=== PATIENT | female | born 1990 | race Caucasian/White ===

== ENCOUNTER 2019-08-25 17:22 | Emergency (ER) | payer BC, SELFPAY ==
[2019-08-25 17:32] VITALS: BP 112/76; PULSE 98; RESP 16; TEMP 37; O2SAT 98
--- NOTE | 2019-08-25 17:35 | W.ED.GENAD ---
Discharge Plan Disposition Patient Disposition: HOME Condition: Good Discharge Details Chief Complaint: Orthopedic Clinical Impression: Contusion of left wrist Primary Care Provider: Nii Dill ED Provider: Yanna Sheth Home Meds and New Rx's Prescriptions: No Action drospirenone-ethinyl estradiol [NILDA (28)] 3-0.02 mg Tablet 1 tab PO DAILY RF: 0 valacyclovir [Valtrex] 1 gram Tablet 1,000 mg PO DAILY RF: 0 spironolactone 100 mg Tablet 150 mg PO DAILY RF: 0 alprazolam [Xanax] 0.5 mg Tablet 1 mg PO QHS PRNRF: 0 Discharge Instructions Instructions: Contusion in Adults (ED) Additional Instructions: Rest. Activities as tolerated. Splint for comfort for one week Elevate injury to prevent swelling. Ice to the area of discomfort for 15 min. 3-5 times daily. Motrin every 8 hours with food or Tylenol every 6 hours for soreness if needed over the counter for comfort. Followup with orthopedic doctor as discussed if not improving in one week. Return for any worsening or concerns sooner if needed. Referrals: Reyes Tamayo MD [ [facility] STAFF PHYSICIAN] - Medical Decision Making 29-year-old patient presents after crushing her hand under a washer. Patient presents with swelling at the left wrist area and complaining of mild dorsal hand pain. X-rays ultimately unremarkable for any identifiable fracture. [place]hams wrist splint ordered. Rice encouraged. Nothing to indicate distal neurovascular injury. Patient maintains full range of motion. Referral for orthopedic follow-up provided if not improving in 1 week. Reasonable expectations discussed. The patient was stable and requested discharge. Prior to discharge, my usual and customary return precautions were reviewed with the patient - this included follow-up instructions and reasons to return to the Emergency Department if conditions worsens, does not improve as expected, or other new concerns arise. HPI General Date/Time Provider Initiated Documentation: 08/25/19 17:27. HPI Narrative: 29-year-old patient presents for complaints of right wrist pain. Patient was leveling her washing machine and her washing machine landed on her left wrist. Patient reports left wrist pain and swelling since injury prior to arrival. Patient denies any other sites of pain or concerns. Denies numbness, tingling or weakness. Patient does have maintained range of motion. Pain is worse with range of motion. No open wounds. Bruising present. Related Data Home Medications Medication Instructions Recorded Confirmed alprazolam [Xanax] 1 mg PO QHS PRN 08/25/19 08/25/19 drospirenone-ethinyl estradiol 1 tab PO DAILY 08/25/19 08/25/19 [NILDA (28)] spironolactone 150 mg PO DAILY 08/25/19 08/25/19 valacyclovir [Valtrex] 1,000 mg PO DAILY 08/25/19 08/25/19 Allergies Allergy/AdvReac Type Severity Reaction Status Date / Time nickel Allergy Skin Rash Unverified 08/25/19 17:27 General Stated Complaint: Orthopedic ROXANN: 4 Review of Systems Review of Systems ROS Unobtainable: All systems reviewed & are unremarkable except as noted in HPI and below Musculoskeletal Musculoskeletal: Denies deformity, Reports joint swelling, Denies numbness and Denies tingling Integumentary/Breasts Skin/Breast: Denies wounds Neurologic Neurologic: Denies numbness and Denies tingling [facility] Social History Smoking/Tobacco Use Status: Current every day Alcohol Intake: current Alcohol Intake frequency: a few times a week Substance use type: does not use Do you feel safe at home: Yes Do you feel safe in your relationship?: Yes Exam Narrative Exam Narrative: CONST: Healthy appearing patient, in no acute distress. Well hydrated. Alert and alert. MUSCULOSKELETAL: Patient with left wrist ecchymosis and swelling present. No pain with palpation of shoulder, humerus or elbow. No proximal forearm tenderness. Mild distal forearm tenderness both radial and ulnar. Pulses are intact. Ecchymosis and swelling present without open wounds. Mild dorsal hand pain with palpation. Flexion extension intact of all digits. Sensation intact distally. SKIN: Ecchymosis and swelling present in the left wrist. Dry. No rashes. NEURO: Alert and awake. Speech clear. Course Vital Signs Vital signs: Vital Signs Temperature 37 C 08/25/19 17:32 Pulse 98 H 08/25/19 17:32 Respiratory Rate 16 08/25/19 17:32 Blood Pressure 112/76 08/25/19 17:32 Pulse Oximetry 98 08/25/19 17:32 Temperature 37 C 08/25/19 17:32 Temperature Source Temporal Artery Scan 08/25/19 17:32 Pulse 98 H 08/25/19 17:32 Respiratory Rate 16 08/25/19 17:32 Blood Pressure 112/76 08/25/19 17:32 Blood Pressure Position Sitting 08/25/19 17:32 Pulse Oximetry 98 08/25/19 17:32 Oxygen Delivery Method Room Air 08/25/19 17:32 Oxygen Flow Rate 0 08/25/19 17:32 Pain Level 9 08/25/19 17:32
--- NOTE | 2019-08-25 18:34 | DI.RAD_ITS ---
EXAM: XR HAND LT COMPLETE INDICATION: pain, injury. COMPARISON: No exams were available for comparison TECHNIQUE: 2D digital imaging was performed. FINDINGS: There is no evidence of a fracture or dislocation.
--- NOTE | 2019-08-25 18:35 | DI.RAD_ITS ---
EXAM: XR WRIST LT COMP NAVICULAR INDICATION: injury. COMPARISON: No exams were available for comparison TECHNIQUE: 2D digital imaging was performed. FINDINGS: There is no evidence of a fracture or dislocation.
[2019-08-25] MEDS: Acetaminophen 500 MG TAB 1000 MG PO (18:40)
--- NOTE | 2019-08-25 18:52 | DI.VRAD_ITS ---
PROCEDURE INFORMATION: Exam: XR Left Wrist Exam date and time: 08/25/2019 6:16 PM Clinical history: 29 years old, female; Other: Injury TECHNIQUE: Imaging protocol: XR Left wrist. Views: 3 or more views. COMPARISON: No relevant prior studies available. FINDINGS: Bones/joints: There is no evidence of acute fracture.There is no evidence of malalignment or dislocation. Soft tissues: Normal. IMPRESSION: There is no evidence of acute fracture.There is no evidence of malalignment or dislocation. Dictated and Authenticated by: Bharati Mancia MD. Ordering:ENRIQUE Raines MD
--- NOTE | 2019-08-25 18:53 | DI.VRAD_ITS ---
PROCEDURE INFORMATION: Exam: XR Left Hand Exam date and time: 08/25/2019 6:16 PM Clinical history: 29 years old, female; Other: Pain, injury TECHNIQUE: Imaging protocol: XR Left hand. Views: 3 or more views. COMPARISON: No relevant prior studies available. FINDINGS: Bones/joints: There is no evidence of acute fracture.There is no evidence of malalignment or dislocation. Soft tissues: Normal. IMPRESSION: There is no evidence of acute fracture.There is no evidence of malalignment or dislocation. Dictated and Authenticated by: Bharati Mancia MD. Ordering:ENRIQUE Raines MD
[2019-08-25 19:30] VITALS: BP 112/76; PULSE 98; RESP 16; TEMP 37; O2SAT 98
== END 2019-08-25 19:30 | disposition home or self-care (01) ==
PROVIDERS: Emergency Provider Physician Assistant; PCP Internal Medicine
DX: S60.212A Contusion of left wrist, initial encounter (principal); W23.1XXA Caught, crushed, jammed, or pinched between stationary objects, initial encounter
CPT/HCPCS: 29125; 81025; 99283; 73110; 73130

== ENCOUNTER 2019-09-09 08:43 | Emergency (ER) | payer BC, SELFPAY ==
[2019-09-09 08:45] VITALS: BP 126/86; PULSE 104; TEMP 36.2; O2SAT 98
--- NOTE | 2019-09-09 08:55 | ED.GENADUL_ITS ---
Discharge Plan Disposition Patient Disposition: HOME Condition: Stable Discharge Details Chief Complaint: Nausea/Vomit/Diar Clinical Impression: Vomiting Primary Care Provider: Nii Dill ED Provider: Jennifer Henderson Home Meds and New Rx's Prescriptions: New ondansetron 4 mg tablet,disintegrating 4 mg PO BID-TID PRN (Reason: nausea and vomiting) Qty: 8 RF: 0 famotidine [Pepcid] 20 mg tablet 20 mg PO DAILY Qty: 30 RF: 0 Continued drospirenone-ethinyl estradiol [NILDA (28)] 3-0.02 mg Tablet 1 tab PO DAILY RF: 0 valacyclovir [Valtrex] 1 gram Tablet 1,000 mg PO DAILY RF: 0 spironolactone 100 mg Tablet 150 mg PO DAILY RF: 0 zolpidem [Ambien] 10 mg Tablet 10 mg PO HS RF: 0 bupropion HCl [Wellbutrin XL] 300 mg Tablet Extended Release 24 Hr 300 mg PO DAILY RF: 0 doxycycline hyclate 100 mg Capsule 100 mg PO BID RF: 0 cetirizine 10 mg Tablet 10 mg PO DAILY RF: 0 Discharge Instructions Instructions: Famotidine (By mouth), Ondansetron (By mouth), Gastritis (ED), Gastroenteritis (ED), Acute Nausea and Vomiting (ED) Additional Instructions: Please return to the emergency department if you develop any new or worsening symptoms or if you become otherwise concerned. It is extremely important that you call as soon as possible to make an appointment to be seen in follow-up for this visit by your primary care doctor. Referrals: Nii Dill [Primary Care Provider] - Discharge Data Discharge Date/Time-TO BE ENTERED AT DEPARTURE: 09/09/19 13:55 Medical Decision Making Leia Carroll is a 29-year-old woman with a history of anxiety and depre ssion who presented to the emergency department with 3 days of vomiting, accompanied by diarrhea and upper abdominal pain worse with vomiting. On exam patient is well and nontoxic appearing. Her mucous memories are somewhat dry. She has mild tenderness across the upper abdomen without peritoneal signs, negative Escobar sign. Concern for gastroenteritis versus pancreatitis versus other, possible metabolic/lyte derangement in setting of dehydration. Doubt biliary disease. Exam/history is not consistent with acute coronary syndrome, pulmonary embolism, acute aortic pathology, mesenteric ischemia, sepsis. Plan for IV fluid hydration, IV Zofran, screening labs, UA. Will monitor and reassess, possible CT abdomen/pelvis. Patient reports continued abdominal pain on reassessment. She continues to be very well-appearing. No vomiting in the emergency department. Plan for CT. Labs reviewed, nondiagnostic. CT abdomen pelvis negative for acute pathology. Patient has received 2 L of IV fluid, appears hydrated. Taking p.o. in the emergency department without issue. Patient requesting discharged home, stating that she feels much better. Patient again states that she feels safe at home. No further intervention indicated at this time. Plan for Rx ondansetron, famotidine. I had a lengthy discussion with the patient in the presence of her grandmother regarding return to emergency department precautions, importance of outpatient follow-up with her PCP and mental health counselor, and home care. Patient verbalized understanding of the plan was amenable. All questions were answered. Patient was discharged home with clear plan for outpatient follow-up. Medical Records Medical records reviewed: Yes I reviewed the patient's medical records. Imaging Data Radiologic Study: Attestation: I personally reviewed and interpreted this imaging study as follows: Radiologist's impression: Exam(s) a CT:CT abdomen & pelvis w EXAM: CT ABDOMEN PELVIS W CLINICAL HISTORY: upper abd pain and tenderness, vomiting TECHNIQUE: 100 mL Omnipaque 350 IV. No oral contrast. COMPARISON: No exams were available for comparison FINDINGS: The heart size is normal. The lung bases are clear. The liver, gallbladder, spleen, pancreas, kidneys and urinary bladder are unremarkable. The uterus is retroverted. The ovaries appear normal. There is no free air or free fluid. S urgical clips are seen near the base of the cecum, pretty presumably related to prior appendectomy. No bowel dilatation or inflammatory changes are seen. There is a normal quantity of stool. No adenopathy is seen. No bony abnormalities are seen. IMPRESSION: Negative CT of the abdomen and pelvis. Lab Data Lab results reviewed: Yes I reviewed the patient's lab results. Labs: Laboratory Tests Range/Units 09/09/19 09/09/19 09/09/19 09:25 09:25 11:58 WBC (4.4-10.8) k/cumm 7.60 RBC (4.00-5.20) m/cumm 4.51 Hgb (12.0-15.5) g/dL 13.8 Hct (36.0-46.0) % 40.5 MCV (80-95) fL 89.8 MCH (27.0-33.0) pg 30.6 MCHC (32.0-36.0) g/dL 34.1 RDW (11.7-14.6) % 12.9 Plt Count (130-400) x1000/uL 280 MPV (8.0-11.0) fL 9.6 Immature Gran % 0.3 Neutrophils % 69.1 Lymphocytes % 21.1 Monocytes % 8.2 Eosinophils % 0.9 Basophils % 0.4 Absolute Neutrophils (1.2-6.7) k/cumm 5.26 Absolute Lymphocytes (1.2-3.4) k/cumm 1.60 Absolute Monocytes (0.11-0.7) k/cumm 0.62 Absolute Eosinophils (0.0-0.7) k/cumm 0.07 Absolute Basophils (0.0-0.2) k/cumm 0.03 Sodium (136-145) mmol/L 137 Potassium (3.5-5.1) mmol/L 4.1 Chloride (98-107) mmol/L 100 Carbon Dioxide (21.0-32.0) mmol/L 23.0 Anion Gap (3-11) mmol/L 14.0 H BUN (7-18) mg/dL 10 Creatinine (0.55-1.02) mg/dL 0.92 Estimated GFR/1.73 m2 (mL/min/1.73m2) >= 60.00 Glucose (70-100) mg/dL 88 Calcium (8.5-10.1) mg/dL 9.4 Total Bilirubin (0.2-1.0) mg/dL 0.7 AST (15-37) U/L 16 ALT (14-59) U/L 36 Alkaline Phosphatase (46-116) U/L 48 Total Protein (6.4-8.2) g/dL 7.7 Albumin (3.4-5.0) g/dL 3.9 Lipase (73-393) U/L 118 Beta HCG, Quant (1-3) mIU/mL 1 Urine Color (Yellow) Yellow Urine Clarity (Clear) Sl cloudy Urine pH (5-8) 6.0 Ur Specific Sup[place] (1.005-1.025) 1.010 Urine Protein (Negative) mg/dL Negative Urine Ketones (Negative) mg/dL 40 H Urine Blood (Negative) Moderate H Urine Nitrite (Negative) Negative Urine Bilirubin (Negative) Negative Urine Urobilinogen (Up TO 0.2) EU/dL 0.2 Ur Leukocyte Esterase (Negative) Negative Urine RBC (0-2) 10-20 H Urine WBC (0-5) HPF 0-2 Ur Epithelial Cells (Negative) HPF Moderate Urine Crystals (Negative) HPF Negative Urine Bacteria (Negative) HPF Few Urine Casts (Negative) LPF 3-5 coarse granular Urine Mucus (Negative) Trace Urine Other (Negative) Negative Ur Culture Indicated? No/sq. contamination Urine Glucose (Negative) mg/dL Negative HPI General Mode of arrival: ambulatory . Date/Time Provider Initiated Documentation: 09/09/19 08:54 . Limitations to Documentation: no limitations . Information obtained by: patient, family, RN notes reviewed and old records reviewed . HPI Narrative: Leia Carroll is a 29-year-old woman here with a history of anxiety and depression (recently diagnosed) presenting to the emergency department with vomiting for the past 3 days. Patient reports that beginning 3 days ago, every time she eats, she vomits immediately. She has also had mild diarrhea since onset of vomiting, last bowel movement was last night and was loose. She denies any constipation. Patient reports that she has abdominal pain with dry heaving, but otherwise her stomach is not painful. She denies any other pain, fevers, shortness of breath, rash, numbness, weakness. She reports that she has had a mild cough. Patient reports that she is concerned that her vomiting may be related to stress and anxiety, as she went through a recent break-up and has been having a difficult time emotionally due to that. She denies suicidality, homicidality, states that she feels safe at home. Never had similar symptoms in the past. Was previously well in her usual state of health. No recent travel. Related Data Home Medications Medication Instructions Recorded Confirmed drospirenone-ethinyl estradiol 1 tab PO DAILY 08/25/19 09/09/19 [NILDA (28)] spironolactone 150 mg PO DAILY 08/25/19 09/09/19 valacyclovir [Valtrex] 1,000 mg PO DAILY 08/25/19 09/09/19 bupropion HCl [Wellbutrin XL] 300 mg PO DAILY 09/09/19 09/09/19 cetirizine 10 mg PO DAILY 09/09/19 09/09/19 doxycycline hyclate 100 mg PO BID 09/09/19 09/09/19 famotidine [Pepcid] 20 mg PO DAILY #30 tab 09/09/19 ondansetron 4 mg PO BID-TID PRN #8 tab 09/09/19 zolpidem [Ambien] 10 mg PO HS 09/09/19 09/09/19 Previous Rx's Medication Instructions Recorded famotidine [Pepcid] 20 mg PO DAILY #30 tab 09/09/19 ondansetron 4 mg PO BID-TID PRN #8 tab 09/09/19 Allergies Allergy/AdvReac Type Severity Reaction Status Date / Time nickel Allergy Skin Rash Unverified 09/09/19 09:08 General Stated Complaint: Nausea/Vomit/Diar ROXANN: 3 Review of Systems Narrative: Constitutional: denies fevers Eyes: denies eye pain ENT: denies facial pain, dental pain, sore throat Cardiovascular: denies chest pain Respiratory: denies SOB, cough GI: Reports mild abdominal pain, vomiting, diarrhea : denies flank pain MSK: denies back pain, neck pain, arthralgias, myalgias Skin: denies rash Neuro: denies headaches, numbness, weakness PFSH Social History Smoking/Tobacco Use Status: Current every day Alcohol Intake: never Substance use type: does not use Do you feel safe at home: Yes Do you feel safe in your relationship?: Yes Exam Narrative Exam Narrative: Constitutional: well and [id number], pleasant, conversing normally HENT: head atraumatic/normocephalic/normal inspection, mucous membranes somewhat dry Eyes: conjunctiva normal, sclera normal, pupils 3mm b/l Neck: no stridor, normal ROM, trachea midline Chest: normal inspection Resp: normal work of breathing, LCTAB Cardio: normal rate, normal rhythm, no murmur appreciated GI: abdomen soft, mild tenderness to palpation across the upper abdomen without rebound or guarding, no mass, non-distended Skin: warm, dry, normal color, no rash Neuro: alert, not altered, grossly non-focal, normal tone Ext: no edema, no posterior calf tenderness to palpation Psych: normal mood, normal affect, normal behavior, no suicidality, no homicidality, no hallucinations Course Vital Signs Vital signs: Vital Signs Temperature 36.2 C L 09/09/19 08:45 Pulse 104 H 09/09/19 08:45 Blood Pressure 126/86 09/09/19 08:45 Pulse Oximetry 98 09/09/19 08:45 Temperature 36.2 C L 09/09/19 08:45 Temperature Source Skin 09/09/19 08:45 Pulse 104 H 09/09/19 08:45 Blood Pressure 126/86 09/09/19 08:45 Blood Pressure Position Sitting 09/09/19 08:45 Pulse Oximetry 98 09/09/19 08:45 Oxygen Delivery Method Room Air 09/09/19 08:45 Oxygen Flow Rate 0 09/09/19 08:45 Pain Level 2 09/09/19 08:45
[2019-09-09] MEDS: Normal Saline 1,000 ML 1000 ML IV ×2 (09:29→12:05)
[2019-09-09 09:35] LABS: Abs Immature Grans 0.02 k/cumm (0.0-0.09); Absolute Basophil Count 0.03 k/cumm (0.0-0.2); Absolute Eosinophil Count 0.07 k/cumm (0.0-0.7); Absolute Monocyte Count 0.62 k/cumm (0.11-0.7); Absolute Neutrophil Count 5.26 k/cumm (1.2-6.7); Basophils % 0.4; Eosinophils % 0.9; HCT 40.5 % (36.0-46.0); HGB 13.8 g/dL (12.0-15.5); Immature Grans % 0.3; Lymphocytes % 21.1; Mean Corp. HGB Concentration 34.1 g/dL (32.0-36.0); Mean Corpuscular Hemoglobin 30.6 pg (27.0-33.0); Mean Corpuscular Volume 89.8 fL (80-95); Mean Platelet Volume 9.6 fL (8.0-11.0); Monocytes % 8.2; Neutrophils % 69.1; Platelet Count 280 x1000/uL (130-400); RBC 4.51 m/cumm (4.00-5.20); RBC Distribution Width 12.9 % (11.7-14.6)
[2019-09-09 09:52] LABS: HCG Quant, Pregnancy 1 mIU/mL (1-3)
[2019-09-09 09:57] LABS: ALT 36 U/L (14-59); AST 16 U/L (15-37); Albumin 3.9 g/dL (3.4-5.0); Alkaline Phosphatase 48 U/L (46-116); BUN 10 mg/dL (7-18); Bilirubin, Total 0.7 mg/dL (0.2-1.0); CREATININE 0.92 mg/dL (0.55-1.02); Calcium 9.4 mg/dL (8.5-10.1); Glucose 88 mg/dL (70-100); Lipase 118 U/L (73-393); Total Protein 7.7 g/dL (6.4-8.2)
[2019-09-09 10:24] LABS: Chloride 100 mmol/L (98-107); Potassium 4.1 mmol/L (3.5-5.1); Sodium 137 mmol/L (136-145)
[2019-09-09] MEDS: Ondansetron 4 MG/2 ML VIAL IM (10:55)
--- NOTE | 2019-09-09 10:55 | DI.CT_ITS ---
EXAM: CT ABDOMEN PELVIS W CLINICAL HISTORY: upper abd pain and tenderness, vomiting TECHNIQUE: 100 mL Omnipaque 350 IV. No oral contrast. COMPARISON: No exams were available for comparison FINDINGS: The heart size is normal. The lung bases are clear. The liver, gallbladder, spleen, pancreas, kidn eys and urinary bladder are unremarkable. The uterus is retroverted. The ovaries appear normal. Th ere is no free air or free fluid. Surgical clips are seen near the base of the cecum, pretty presuma [place] related to prior appendectomy. No bowel dilatation or inflammatory changes are seen. There is a normal quantity of stool. No adenopathy is seen. No bony abnormalities are seen. IMPRESSION: Negative CT of the abdomen and pelvis.
[2019-09-09] MEDS: Omnipaque 350 MG/ML 100 ML BTL IJ (11:51)
[2019-09-09 12:08] LABS: Bilirubin Negative (Negative); Blood Moderate (Negative); Clarity Sl Cloudy (Clear); Glucose Negative (Negative); Ketones 40 mg/dL (Negative); Leukocyte Esterase Negative (Negative); Nitrite Negative (Negative); Urobilinogen 0.2 EU/dL (Up TO 0.2)
[2019-09-09 12:18] LABS: WBC 0-2 HPF (0-5)
[2019-09-09 12:19] LABS: Bacteria Few HPF (Negative); C & S Indicated? No/Sq. Contamination; Casts 3-5 Coarse Granular LPF (Negative); Crystals Negative HPF (Negative); Epithelial Cells Moderate HPF (Negative); Mucus Trace (Negative); Other Cells Negative (Negative)
[2019-09-09 12:27] VITALS: BP 107/70; PULSE 79; RESP 16; TEMP 36.5; O2SAT 100
[2019-09-09 13:52] VITALS: BP 99/59; PULSE 75; RESP 14; O2SAT 97
== END 2019-09-09 13:55 | disposition home or self-care (01) ==
PROVIDERS: Emergency Provider Student in an Organized Health Care Education/Training Program; PCP Internal Medicine
DX: R11.2 Nausea with vomiting, unspecified (principal); F41.8 Other specified anxiety disorders
CPT/HCPCS: 36415; 80053; 83690; 96360; 96361; 96372; 99285; 74177; 81003; 81015; 84702; 85025; 99284; J2405; J3490

== ENCOUNTER 2024-09-17 01:46 | Emergency (ER) | payer SELFPAY ==
[2024-09-17 01:49] VITALS: BP 150/101; PULSE 72; RESP 16; TEMP 36.7; O2SAT 99
--- NOTE | 2024-09-17 01:54 | W.ED.GENAD ---
Discharge Plan Disposition Patient Disposition: Home Condition: Good Discharge Details Clinical Impression: Dental infection Primary Care Provider: Nii Dill ED Provider: Travis Acuna [place] Meds and New Rx's Prescriptions: New amoxicillin 500 mg tablet 500 mg PO TID Qty: 20 0RF Continued valacyclovir [Valtrex] 1 gram Tablet 1,000 mg PO DAILY cetirizine 10 mg Tablet 10 mg PO DAILY Discharge Instructions Instructions: Dental Pain ED Additional Instructions: You were seen in the ED for dental pain which given the swelling, lymph node and worsening pain would suggest probable infection. We have started you on an antibiotic. You should continue alternating acetaminophen 1000mg with ibuprofen 600mg every 4 hours. You will need to see a dentist in the next couple of days, refer to the list you have been provided. There is also an [facility] in [place]. Return to ED for any difficulty breathing, inability to swallow, facial redness or swelling, fever, other concerns. Discharge Data Discharge Date/Time-TO BE ENTERED AT DEPARTURE: 09/17/24 02:15 HPI General Mode of arrival: ambulatory. Date/Time Provider Initiated Documentation: 09/17/24 01:54. Limitations to Documentation: no limitations. Information obtained by: patient and RN notes reviewed. HPI Narrative: Patient presents to ED with right sided dental and facial pain. Patient reports that over the last 3 days she has had increasing pain to the right lower jaw. She does have all of her wisdom teeth. She has never had issues with them previously despite them never coming in. Is now having significant pain that radiates to her right ear, pain when swallowing on the right side, some apparent swelling in her neck. She denies any fever. She denies any URI type symptoms. She denies any difficulty breathing. She has been taking acetaminophen and ibuprofen for pain. Related Data Home Medications ?Medication ?Instructions ?Recorded ?Confirmed valacyclovir 1 gram tablet 1,000 mg PO DAILY 08/25/19 09/17/24 (Valtrex) cetirizine 10 mg tablet 10 mg PO DAILY 09/09/19 09/17/24 amoxicillin 500 mg tablet 500 mg PO TID #20 tabs 09/17/24 Previous Rx's ?Medication ?Instructions ?Recorded amoxicillin 500 mg tablet 500 mg PO TID #20 tabs 09/17/24 Allergies Allergy/AdvReac Type Severity Reaction Status Date / Time nickel Allergy Skin Rash Verified 09/17/24 01:53 General Stated Complaint: DentalOral ROXANN: 5 Review of Systems Narrative: Per HPI Exam Narrative Exam Narrative: Const: WDWN female in NAD. VS per triage. HEENT: NC/AT. Normal facial exam. Dentition is in good condition. Significant erythema and swelling as well as tenderness over the site of the right lower wisdom tooth. No obvious abscess. Right TM is clear. Neck: Supple. Trachea midline. A couple of small tender right sided lymph nodes. Lungs: Normal respiratory effort. Neuro: A+O x 3. Normal speech, mentation, gait. Cranial nerves II - XII grossly intact. No gross motor or sensory deficit. Course Vital Signs Vital signs: Vital Signs Temperature 98.1 F 09/17/24 01:49 Pulse 72 09/17/24 01:49 Respiratory Rate 16 09/17/24 01:49 Blood Pressure 150/101 H 09/17/24 01:49 Pulse Oximetry 99 09/17/24 01:49 Temperature 98.1 F 09/17/24 01:49 Temperature Source Temporal Artery Scan 09/17/24 01:49 Pulse 72 09/17/24 01:49 Respiratory Rate 16 09/17/24 01:49 Blood Pressure 150/101 H 09/17/24 01:49 Blood Pressure Position Sitting 09/17/24 01:49 Pulse Oximetry 99 09/17/24 01:49 Oxygen Delivery Method Room Air 09/17/24 01:49 Oxygen Flow Rate 0 09/17/24 01:49 Pain Level 8 09/17/24 01:49 Medical Decision Making Patient presenting to ED with right lower jaw pain radiating to her ear. She has pain with swallowing on the right side as well as some lymph nodes. Pain has been worsening despite alternating acetaminophen with ibuprofen. Her dentition actually looks very good. She does not have percussion tenderness over erupted teeth. [place] teeth have not come in and are likely impacted. However, given the worsening pain, lymph nodes, swelling and erythema potentially has developed an infection. Will start her on amoxicillin. Have given her a list of dentists in the area that can see her in follow-up. Recommend warm salt water rinse and spit. Continue alternating acetaminophen with ibuprofen. Return precautions provided. PFSH All Active Problems Dental infection (Acute) Medical History No significant past medical history Social History Smoking/Tobacco Use Status: Current every day Smoking risk assessment performed?: Yes Alcohol Intake: never Substance use type: does not use Do you feel safe at home: Yes Do you feel safe in your relationship?: Yes
[2024-09-17] MEDS: Amoxicillin 500 MG CAP PO (02:12)
--- NOTE | 2024-09-18 12:32 | NUR.NOTE ---
Nursing Note: Accessed chart yesterday 09/17/24 due to call received from Aria Mendoza regarding prescriptions. Verbal order given to pharmacy for Antibiotics as written by .
== END 2024-09-17 02:15 | disposition home or self-care (01) ==
LOC: ER 02:39
PROVIDERS: Emergency Provider Emergency Medicine; PCP Internal Medicine
DX: R68.84 Jaw pain (principal); K04.7 Periapical abscess without sinus; F17.200 Nicotine dependence, unspecified, uncomplicated
CPT/HCPCS: 99283

== ENCOUNTER 2024-10-13 15:32 | Emergency (ER) | payer SELFPAY ==
[2024-10-13 15:35] VITALS: BP 132/95; PULSE 111; RESP 18; TEMP 36.3; O2SAT 92
--- NOTE | 2024-10-13 15:45 | DI.CT_ITS ---
Exam(s) CT ABDOMEN PELVIS W EXAM: CT ABDOMEN PELVIS W CLINICAL HISTORY: RUQ pain into back. TECHNIQUE: Imaging Protocol: Axial computed tomography images with coronal and sagittal reformatted images were created and reviewed CONTRAST MATERIAL: Intravenous: Omnipaque-350 100cc Oral: None COMPARISON: CT CT ABDOMEN PELVIS W from 09/09/2019 FINDINGS: VISUALIZED LUNG BASES: No nodules nor pleural effusions evident. ABDOMEN: There is no ascites. LIVER: There are no focal hepatic lesions evident. No dilated intrahepatic ducts. GALLBLADDER/BILIARY: No obvious gallbladder pathology. CBD is not dilated. PANCREAS: No evidence of pancreatic mass nor dilatation of the pancreatic duct. SPLEEN: Spleen is not enlarged. There is a small cyst in the inferior half of the spleen which measu res 0.8 cm. No other focal splenic findings. The splenic and portal veins are patent. ADRENALS: There are no significant adrenal masses. KIDNEYS:No cysts evident. No solid renal masses. No calculi nor hydronephrosis.. ABDOMINAL AORTA: Abdominal aorta is not enlarged. LYMPH NODES:There is no retroperitoneal nor paraaortic adenopathy. ABDOMINAL WALL: No evidence of significant anterior abdominal wall nor inguinal hernia. GI: There is no evidence of bowel obstruction, free air, nor abscess. PELVIS: GI: The appendix is surgically absent. No abnormal findings in this region. No evidence of bowel ob struction.No evidence of sigmoid diverticulitis. LYMPH NODES: There is no intrapelvic nor inguinal adenopathy. REPRODUCTIVE: Uterus unremarkable. Left adnexa unremarkable. In the right adnexa there is a periphe rally enhancing corpus luteal cyst in the right ovary measuring 1.4 by 1.6 by 1.8 cm. There is small -moderate amount of free fluid in the cul-de-sac. URINARY BLADDER: No calculi nor obvious masses evident OSSEOUS: No fractures and no significant osseous lesions. Sacroiliac joints unremarkable. IMPRESSION: 1. The appendix is surgically absent. No evidence of bowel obstruction, free air, nor abscess. 2. No obvious acute gallbladder pathology on CT scan. If clinically indicated ultrasound of the gall bladder can be performed to determine if there are calculi in the gallbladder which are not visible o n CT scan. 3. There is a peripherally enhancing cyst-probably corpus luteal cyst in the right ovary measuring 14 x 16 x 18 mm. There is small-moderate amount of free fluid in the cul-de-sac. Correlation with pre gnancy test recommended. First read by [facility]. RADIATION DOSE DELIVERED: 285.76mGy.cm Total DLP DATA REPOSITORY: All CT scans at this facility are submitted to the National Radiology Data Registry (NRDR) Dose Index Registry (DIR) with the [employer] (ACR). RADIATION OPTIMIZATION: All CT scans at this facility use at least one of these dose optimization te chniques: automated exposure control; mA and/or kV adjustment per patient size (includes targeted exa ms where dose is matched to clinical indication); or iterative reconstruction.
[2024-10-13 16:00] VITALS: BP 135/94; PULSE 111; RESP 24; TEMP 36.3; O2SAT 100
[2024-10-13] MEDS: MORPHine 4 MG/ML SYR IVP (16:28)
[2024-10-13] MEDS: ACETAMINOPHEN 650 MG/65 ML BAG 260 MG IVPB (16:28)
[2024-10-13 16:42] LABS: ALT 16 U/L (14-59); AST 13 U/L (15-37); Abs Immature Grans 0.05 10^3/uL (0.0-0.06); Absolute Basophil Count 0.07 10^3/uL (0.0-0.2); Absolute Eosinophil Count 0.12 10^3/uL (0.0-0.7); Albumin 3.8 g/dL (3.4-5.0); Alkaline Phosphatase 82 U/L (46-116); Anion Gap 10.7 mmol/L (3-11); BUN 19 mg/dL (7-18); Basophils % 0.6 %; Bilirubin, Total 1.19 mg/dL (0.2-1.0); CO2 26.3 mmol/L (21.0-32.0); CREATININE 1.2 mg/dL (0.55-1.02); Calcium 9.5 mg/dL (8.5-10.1); Chloride 104 mmol/L (98-107); Estimated GFR 60.92 (mL/min/1.73m2); Glucose 98 mg/dL (74-106); HCT 38.8 % (36.0-46.0); HGB 12.4 g/dL (11.2-15.7); Immature Grans % 0.4 %; Lipase 30 U/L (<78); Lymphocytes % 12.9 %; MCH 29.9 pg (27.0-33.0); MCV 94 fL (80-95); MPV 9.4 fL (8.0-11.0); Monocytes % 11.1 %; Platelet Count 271 10^3/uL (130-400); Potassium 3.8 mmol/L (3.5-5.1); RBC 4.15 10^6/uL (3.93-5.22); RDW 12.6 % (11.7-14.6); RDW-SD 43.3 fL; Sodium 141 mmol/L (136-145); WBC 11.74 10^3/uL (4.4-10.8)
[2024-10-13 16:46] LABS: Absolute Lymphocyte Count 1.51 10^3/uL (1.2-3.4); Absolute Neutrophil Count 8.69 10^3/uL (1.2-6.7)
[2024-10-13] MEDS: Normal Saline - Diluent 50 ML VIAL IJ (16:48)
[2024-10-13] MEDS: Omnipaque 350 MG/ML 100 ML BTL IJ (16:48)
--- NOTE | 2024-10-13 17:20 | DI.VRAD_ITS ---
PROCEDURE INFORMATION: Exam: CT Abdomen And Pelvis With Contrast Exam date and time: 10/13/2024 4:43 PM Age: 34 years old Clinical indication: Other: Ruq pain into back TECHNIQUE: Imaging protocol: Computed tomography of the abdomen and pelvis with contrast. Contrast material: 350; Contrast volume: 75 ml; Contrast route: INTRAVENOUS (IV); COMPARISON: CT ABDOMEN PELVIS W 09/09/2019 11:40 AM FINDINGS: Lungs: There is minimal bibasilar atelectasis. The lungs are otherwise normal. Pleural spaces: There is no evidence of pneumothorax. There are no pleural effusions present. Heart: The cardiac structures are normal. Liver: There is a diffuse decrease in hepatic parenchymal density, consistent with mild fatty infiltration. There are no focal liver lesions present. There is no evidence of intrahepatic or extrahepatic biliary ductal dilation. Gallbladder and biliary ducts: The gallbladder is normal. There is no cholelitiasis, wall thickening or pericholecystic fluid to suggest cholecystitis. Pancreas: The pancreas is normal. Spleen: The spleen is normal. Adrenal glands: The adrenal glands are normal without evidence of mass or enlargement. Kidneys and ureters: There is mild bilateral perinephric stranding and fluid. This may represent a mild inflammatory process or old inflammation and scarring. The kidneys are otherwise normal no evidence of nephrolithiasis or hydronephrosis. The ureters are normal caliber and follow a normal caliber and course. Stomach and bowel: No obstruction. No mucosal thickening. Appendix: There has been an appendectomy. No evidence of appendicitis. Intraperitoneal space: There is no free intraperitoneal air. There is no evidence of free intraperitoneal or pelvic fluid. Vasculature: The aorta is unremarkable without evidence of significant atherosclerosis or aneurysmal disease. The peripheral arterial vascular system visualized is unremarkable. The portal venous system visualized is unremarkable. The peripheral venous vascular system visualized is unremarkable. Lymph nodes: There is no evidence of lymphadenopathy. Urinary bladder: The bladder is normal. Reproductive: The uterus is retroflexed. The uterus is otherwise normal. There is a collapsing cyst is present within the right adnexa measuring 18.5 mm with an enhancing wall. There is free fluid present within the pelvis. Consider ruptured ovarian cyst. Bones/joints: The skeletal structures and soft tissues show no evidence of fracture or other acute processes. Soft tissues: The extra-abdominal soft tissues are normal. IMPRESSION: There is a collapsing cyst is present within the right adnexa measuring 18.5 mm with an enhancing wall. There is free fluid present within the pelvis. Consider ruptured ovarian cyst. Dictated and Authenticated by: Kip Marquez MD. Ordering:SCOTT Ashton MD
--- NOTE | 2024-10-13 17:40 | W.ED.GENAD ---
Discharge Plan Disposition Patient Disposition: Home Condition: Stable Discharge Details Clinical Impression: Cystitis, Ovarian cyst rupture Primary Care Provider: Nii Dill ED Provider: Daisha Williamson Home Meds and New Rx's Prescriptions: New cefpodoxime 200 mg tablet 200 mg PO BID Qty: 19 0RF Rx Instructions: must administer with a meal/food Continued valacyclovir [Valtrex] 1 gram Tablet 1,000 mg PO DAILY cetirizine 10 mg Tablet 10 mg PO DAILY amoxicillin 500 mg tablet 500 mg PO TID Qty: 20 0RF Discharge Instructions Instructions: Ovarian Cyst ED Additional Instructions: Ibuprofen 600 mg every 8 hours with food as needed for pain You may take Tylenol 650 every 6 hours for breakthrough pain You may take morphine for pain uncontrolled with the medications listed above Take the antibiotic as prescribed, yogurt daily while on the antibiotic Recommendation follow-up with your primary care physician you will likely need a repeat pelvic ultrasound in the next cycle or 2, I have given you an ultrasound order sheet Should you have fever, chills, or any new or worsening complaints please return immediately for reassessment Your creatinine level is slightly elevated, please have this rechecked by your doctor is likely secondary to dehydration We will notify you in 3 to 4 days if your STD panel is positive, if you do not receive a call that means the results are negative but feel free to call regardless to confirm Discharge Data Discharge Date/Time-TO BE ENTERED AT DEPARTURE: 10/13/24 18:41 HPI General Date/Time Provider Initiated Documentation: 10/13/24 15:40. HPI Narrative: This 34-year-old female presents with report of right upper quadrant pain with radiation into flank. States pain woke her from sleep this morning. Denies history of similar symptoms in the past. Denies chance of or fever or chills. States she was treated for a UTI approximately a month ago with an antibiotic and her symptoms resolved. Related Data Home Medications ?Medication ?Instructions ?Recorded ?Confirmed valacyclovir 1 gram tablet 1,000 mg PO DAILY 08/25/19 09/17/24 (Valtrex) cetirizine 10 mg tablet 10 mg PO DAILY 09/09/19 09/17/24 amoxicillin 500 mg tablet 500 mg PO TID #20 tabs 09/17/24 cefpodoxime 200 mg tablet 200 mg PO BID #19 tabs 10/13/24 Previous Rx's ?Medication ?Instructions ?Recorded amoxicillin 500 mg tablet 500 mg PO TID #20 tabs 09/17/24 cefpodoxime 200 mg tablet 200 mg PO BID #19 tabs 10/13/24 Allergies Allergy/AdvReac Type Severity Reaction Status Date / Time nickel Allergy Skin Rash Verified 09/17/24 01:53 General Stated Complaint: Abd Prob ROXANN: 3 Exam Narrative Exam Narrative: Alert and oriented 34-year-old female initially presenting in acute distress, right flank and right upper quadrant pain, lungs clear to auscultation, cardiac rate rhythm regular Course Vital Signs Vital signs: Vital Signs Temperature 36.3 C L 10/13/24 15:35 Pulse 111 H 10/13/24 15:35 Respiratory Rate 18 10/13/24 15:35 Blood Pressure 132/95 H 10/13/24 15:35 Pulse Oximetry 92 10/13/24 15:35 Temperature 36.3 C L 10/13/24 16:00 Temperature Source Oral 10/13/24 16:00 Pulse 111 H 10/13/24 16:00 Respiratory Rate 24 10/13/24 16:00 Respiratory Effort Normal 10/13/24 15:40 Blood Pressure 135/94 H 10/13/24 16:00 Blood Pressure Position Sitting 10/13/24 16:00 Pulse Oximetry 100 10/13/24 16:00 Oxygen Delivery Method Room Air 10/13/24 16:00 Oxygen Flow Rate 0 10/13/24 15:35 Pain Level 9 10/13/24 16:28 Comment fingernail pashto on 10/13/24 15:35 Lab/Test Results Lab/Test Results: Laboratory Tests Range/Units 10/13/24 16:22 WBC (4.4-10.8) 10^3/uL 11.74 H RBC (3.93-5.22) 10^6/uL 4.15 Hgb (11.2-15.7) g/dL 12.4 Hct (36.0-46.0) % 38.8 MCV (80-95) fL 94 MCH (27.0-33.0) pg 29.9 MCHC (32.0-36.0) % 32.0 RDW (11.7-14.6) % 12.6 Plt Count (130-400) 10^3/uL 271 MPV (8.0-11.0) fL 9.4 Immature Gran % % 0.4 Neutrophils % % 74.0 Lymphocytes % % 12.9 Monocytes % % 11.1 Eosinophils % % 1.0 Basophils % % 0.6 Nucleated RBC % (0.0-0.3) % 0.0 Absolute Neutrophils (1.2-6.7) 10^3/uL 8.69 H Absolute Lymphocytes (1.2-3.4) 10^3/uL 1.51 Absolute Monocytes (0.1-0.8) 10^3/uL 1.30 H Absolute Eosinophils (0.0-0.7) 10^3/uL 0.12 Absolute Basophils (0.0-0.2) 10^3/uL 0.07 Sodium (136-145) mmol/L 141 Potassium (3.5-5.1) mmol/L 3.8 Chloride (98-107) mmol/L 104 Carbon Dioxide (21.0-32.0) mmol/L 26.3 Anion Gap (3-11) mmol/L 10.7 BUN (7-18) mg/dL 19 H Creatinine (0.55-1.02) mg/dL 1.2 H Est GFR (CKD-EPI 2020) (mL/min/1.73m2) 60.92 Glucose (74-106) mg/dL 98 Calcium (8.5-10.1) mg/dL 9.5 Total Bilirubin (0.2-1.0) mg/dL 1.19 H AST (15-37) U/L 13 L ALT (14-59) U/L 16 Alkaline Phosphatase (46-116) U/L 82 Total Protein (6.4-8.2) g/dL 7.0 Albumin (3.4-5.0) g/dL 3.8 Lipase (<78) U/L 30 POC- Test(urine) Negative Medical Decision Making 34-year-old female presenting with abdominal pain, right upper quadrant and right flank. CT abdomen and pelvis is ordered for further evaluation with right upper quadrant and right flank pain. No significant leukocytosis appreciated, urinalysis concerning for infection, repeat urinalysis was ordered secondary to epithelials, nitrite leukocyte esterase positive will treat with evidence of possible pyelonephritis on CT although patient does not have a fever so lower suspicion that this is a Mark and more likely to be cystitis. There is also a ruptured ovarian cyst on the right side which may be contributing to patient's pain. This is interpreted by radiology and reviewed by me per available. I will place patient on cefuroxime for broad-spectrum coverage for 10 days. As patient had a new partner within the last year, I did order GC chlamydia via urine which is pending at this time. Patient was given tart 4 tablets of morphine IR although in no discomfort when I reassess. Outpatient ultrasound was ordered for repeat assessment given right ovarian cyst. No evidence of ovarian torsion and pain is completely resolved at time of reassessment which patient attributes to the morphine that she was administered IV. Pending urine culture, GC chlamydia, and follow-up with PCP in the outpatient setting recommended Quality:SDOH Health Related Social Needs: No Data to Display PFSH All Active Problems (Updated 10/13/24 @ 18:04 by YARITZA Calderon) Ovarian cyst rupture (Acute) Cystitis (Acute) Dental infection (Acute) Medical History No significant past medical history Social History Smoking/Tobacco Use Status: Current every day Smoking risk assessment performed?: Yes Alcohol Intake: never Substance use type: does not use Do you feel safe at home: Yes Do you feel safe in your relationship?: Yes
[2024-10-13 17:49] LABS: Bacteria Moderate HPF (Negative); C & S Indicated? No/Sq. Contamination; Epithelial Cells Moderate HPF (Negative); WBC 20-50 HPF (0-5)
[2024-10-13 18:02] VITALS: BP 115/85; PULSE 65; RESP 18; TEMP 36.3; O2SAT 95
--- NOTE | 2024-10-13 18:15 | NUR.NOTE ---
Faxed to DI request for Pelvic US; for right ovarian cyst; follow up w/PCP; to be done KATIE. Nursing Note:
[2024-10-13 18:24] VITALS: BP 115/85; PULSE 65; RESP 18; O2SAT 95
[2024-10-13 18:36] LABS: Bilirubin Negative (Negative); Blood Moderate (Negative); Clarity Clear (Clear); Glucose 100 mg/dL (Negative); Ketones Trace mg/dL (Negative); Leukocyte Esterase Small (Negative); Nitrite Positive (Negative); Specific Gravity <= 1.005 (1.005-1.025); Urobilinogen 0.2 mg/dL (Up to 0.2); pH 5.5 (5-8)
[2024-10-13] MEDS: Cefpodoxime 200 MG TAB PO (18:38)
[2024-10-13 18:43] LABS: Bacteria Moderate HPF (Negative); C & S Indicated? Yes; Epithelial Cells Few HPF (Negative); WBC 20-50 HPF (0-5)
[2024-10-15 11:42] LABS: Chlamydia Result Negative (Negative); GC Result Negative (Negative)
== END 2024-10-13 18:41 | disposition home or self-care (01) ==
PROVIDERS: Emergency Provider Physician Assistant; PCP Internal Medicine
DX: R10.11 Right upper quadrant pain (principal); R10.31 Right lower quadrant pain; N83.209 Unspecified ovarian cyst, unspecified side; N30.90 Cystitis, unspecified without hematuria; Z87.440 Personal history of urinary (tract) infections
CPT/HCPCS: 80053; 81025; 83690; 87077; 87491; 87591; 96365; 96375; 99285; 74177; 81003; 81015; 85025; 87086; 87186; 99284; J0131; J2270; J3490

== ENCOUNTER 2024-11-09 14:43 | Emergency (ER) | payer SELFPAY ==
[2024-11-09 14:51] VITALS: BP 121/84; PULSE 88; RESP 16; TEMP 36.6; O2SAT 98
[2024-11-09 14:54] VITALS: BP 121/84; PULSE 88; RESP 16; TEMP 36.6; O2SAT 98
[2024-11-09 15:05] LABS: Bilirubin Negative (Negative); Blood Trace-intact (Negative); Clarity Sl Cloudy (Clear); Glucose Negative (Negative); Ketones Negative (Negative); Leukocyte Esterase Trace (Negative); Nitrite Positive (Negative); Urobilinogen 0.2 mg/dL (Up to 0.2); pH 6.5 (5-8)
[2024-11-09 15:12] LABS: Bacteria Rare HPF (Negative); C & S Indicated? Yes; Casts Negative LPF (Negative); Crystals Negative HPF (Negative); Epithelial Cells Negative HPF (Negative); Mucus Negative (Negative)
[2024-11-09] MEDS: levoFLOXacin 500 MG TAB PO (15:27)
--- NOTE | 2024-11-09 15:30 | ED.GENADUL_ITS ---
Discharge Plan Disposition Patient Disposition: Home Discharge Details Clinical Impression: Acute UTI Primary Care Provider: Nii Dill ED Provider: Nii Pantoja Home Meds and New Rx's Prescriptions: New levofloxacin 500 mg tablet 500 mg PO DAILY Qty: 14 0RF Continued valacyclovir [Valtrex] 1 gram Tablet 1,000 mg PO DAILY cetirizine 10 mg Tablet 10 mg PO DAILY Discharge Instructions Instructions: Urinary Tract Infection, Adult ED Additional Instructions: You are seen in the emergency department for your burning while urinating. You are urinalysis shows signs of urinary tract infection for which she received antibiotics that you should take as directed. Please return to the emergency department as we discussed if you develop flank pain cannot eat or drink or develop nausea or vomiting. Otherwise please follow-up as needed with your primary care provider next week. Discharge Data Discharge Date/Time-TO BE ENTERED AT DEPARTURE: 11/09/24 15:59 HPI General Date/Time Provider Initiated Documentation: 11/09/24 15:16 . HPI Narrative: MDM This is an overall very well-appearing normothermic and not tachycardic 34-year- old female with recently treated UTI unfortunately given cefpodoxime to which her urine was resistant and for which she will now receive treatment with levofloxacin. No flank pain or history of nephrolithiasis to suggest ureterolithiasis and no indication for CT scan. No fevers to suggest pyelonephritis. No abdominal pain nausea nor vomiting nor diarrhea to suggest appendicitis. No fevers to suggest diverticulitis. Patient reportedly has seen urology in the past at [facility] for frequent UTIs is referred by her primary care provider. I do not see any notes from urology in the [facility] EMR. She had no abnormal vaginal discharge to suggest sexually transmitted infection and no new partners so my suspicion for sexually transmitted infection was low. She did have negative chlamydia negative gonorrhea urine probes last month so I did not feel that these need to be repeated. 11/10 Urinalysis growing E. coli sensitivities pending. HPI The patient presents for evaluation of a urinary tract infection. She was previously seen on 10/13/2024, during which she was diagnosed with a ruptured ovarian cyst, a condition she had not experienced before. She was also treated for a severe UTI with antibiotics. Following the antibiotic treatment, she reported feeling well. However, she experienced a recurrence of symptoms last night, characterized by urinary frequency and discomfort. She has been experiencing recurrent UTIs throughout the year, a pattern that is not typical for her as she usually experiences 1 to 2 UTIs per year. She reports no history of sexually transmitted infections and maintains a monogamous relationship with a male partner who has undergone a vasectomy. She does not use condoms or an IUD. She reports no fevers, history of kidney stones, abnormal vaginal discharge, vomiting, diarrhea, back pain, or vaginal bleeding. She has been using Pyridium for symptom management. She recalls a similar episode years ago, for which she consulted a urologist and was treated with antibiotics. She does not remember if any kidney ultrasounds were performed at that time. Her primary care physician had previously referred her to a urologist due to frequent UTIs. Exam General: Well-appearing in no acute distress speaking in complete sentences. Head: Normocephalic, atraumatic. Eye: Extraocular eye movements intact. No conjunctival injection. No scleral icterus. Ear, nose, mouth, throat: Grossly normal inspection. Normal voice, handling secretions normally. Neck: Trachea midline. Cardiovascular: Well-perfused distal extremities. Respiratory: Nonlabored respiration. Gastrointestinal: Nondistended abdomen. Musculoskeletal: No edema. Moving all 4 extremities spontaneously. Skin: Normal for age and race, grossly normal temperature and turgor. No acute rash. Neurologic: Alert and appropriate, no apparent acute deficits. Psychiatric: Mood and manner are appropriate. Grooming and personal hygiene are appropriate. Related Data Home Medications ?Medication ?Instructions ?Recorded ?Confirmed valacyclovir 1 gram tablet 1,000 mg PO DAILY 08/25/19 11/09/24 (Valtrex) cetirizine 10 mg tablet 10 mg PO DAILY 09/09/19 11/09/24 levofloxacin 500 mg tablet 500 mg PO DAILY #14 tabs 11/09/24 Previous Rx's ?Medication ?Instructions ?Recorded levofloxacin 500 mg tablet 500 mg PO DAILY #14 tabs 11/09/24 Allergies Allergy/AdvReac Type Severity Reaction Status Date / Time nickel Allergy Skin Rash Verified 11/09/24 14:53 General Stated Complaint: Urinary ROXANN: 4 Course Vital Signs Vital signs: Vital Signs Temperature 36.6 C 11/09/24 14:51 Pulse 88 11/09/24 14:51 Respiratory Rate 16 11/09/24 14:51 Blood Pressure 121/84 11/09/24 14:51 Pulse Oximetry 98 11/09/24 14:51 Temperature 36.6 C 11/09/24 14:54 Temperature Source Oral 11/09/24 14:54 Pulse 88 11/09/24 14:54 Respiratory Rate 16 11/09/24 14:54 Blood Pressure 121/84 11/09/24 14:54 Blood Pressure Position Sitting 11/09/24 14:54 Pulse Oximetry 98 11/09/24 14:54 Oxygen Delivery Method Room Air 11/09/24 14:54 Oxygen Flow Rate 0 11/09/24 14:54 Lab/Test Results Lab/Test Results: 11/09/24 14:57 Urine - Reflex from Ua Urine Culture - Pending Laboratory Tests Range/Units 11/09/24 14:57 Urine Color (Yellow) Yellow Urine Clarity (Clear) Sl Cloudy Urine pH (5-8) 6.5 Ur Specific Oneill (1.005-1.025) 1.020 Urine Protein (Neg-Trace) mg/dL Negative Urine Ketones (Negative) mg/dL Negative Urine Blood (Negative) Trace-intact H Urine Nitrite (Negative) Positive H Urine Bilirubin (Negative) Negative Urine Urobilinogen (Up to 0.2) mg/dL 0.2 Ur Leukocyte Esterase (Negative) Trace H Urine RBC (0-2) HPF 3-5 H Urine WBC (0-5) HPF 10-20 H Ur Epithelial Cells (Negative) HPF Negative Urine Crystals (Negative) HPF Negative Urine Bacteria (Negative) HPF Rare Urine Casts (Negative) LPF Negative Urine Mucus (Negative) Negative Ur Culture Indicated? Yes Urine Glucose (Negative) mg/dL Negative POC- Test(urine) Negative Medical Decision Making Quality:SDOH Health Related Social Needs: No Data to Display PFSH All Active Problems (Updated 11/09/24 @ 15:30 by Nii Pantoja MD) Acute UTI (Acute) Ovarian cyst rupture (Acute) Cystitis (Acute) Medical History No significant past medical history Social History Smoking/Tobacco Use Status: Current every day Tobacco Type: e-cigarettes Smoking risk assessment performed?: Yes Alcohol Intake: never Substance use type: does not use Do you feel safe at home: Yes Do you feel safe in your relationship?: Yes
--- OUTSIDE RECORDS SUMMARY | 2024-11-09 15:43 | XMS_ITS | Encounter Summary ---
Author Organization [facility] Address [address] [place] [address] Care Team Providers Care Parts Assembler Name Role Phone Terri Holman NP Primary Care Provider [phone] Encounter Details Date Type Department Care Team (Late st Contact Info) Description 01/13/2020 Results Only [facility] [phone] Michelle Quiroga PA [address] [place] [phone] Social History Tobacco Use Types Packs/Day Years Used Date Smoking Tobacco: Never Assessed Comments Unknown Sex and Gender Information Value Date Recorded Sex Assigned at Not on file Legal Sex Female 17:56 EST Gender Identity Female 04/26/2023 12:36 EDT Sexual Orientation Not on file documented as of this encounter Plan of Treatment Not on file documented as of this encounter Procedures Procedure Name Priority Date/Time Associated Diagnosis Comments HEPATITIS C AB W/REFLEX - [facility] Routine 01/13/2020 11:50 EDT HIV 1/2 AB, P24 AG - [facility] Routine 01/13/2020 11:50 EDT HEPATITIS B SURFACE ANTIBODY Routine 01/13/2020 11:50 EDT documented in this encounter Results * HEPATITIS C AB W/REFLEX - [facility] (01/13/2020 11:50 EDT) HEPATITIS C AB W/REFLEX - [facility] Negative 01/13/2020 14:16 EDT [facility] Comment:Expected Values: Neg ative. 01/13/2020 11:5 0 EDT 01/13/2020 12:50 EDT [facility] - 01/13/2020 14:29 EDT Does PT Have a Latex Allergy? NO Enter/Edit CPT and ICD codes? N Michelle VIGIL CHEMISTRY & BLOOD GAS ORDERABLES Final Result Performing Organization Address [facility]/ZIP Co de Phone Number [facility] * HEPATITIS B SURFACE ANTIBODY (01/13/2020 11:50 EDT) Hep B Surface Ab, Qualitative 127 01/13/2020 14:29 EDT [facility] Comment: ? Interpretative Guidelines >=12.00 mIU/mL ??= Positive Clinical Interpretation of Immune Status: Anti-HBs detected at >10 mIU/mL. Patient is considered to be immune to infection with HBV. ??It has not been determined what the clinical significance is for values greater than or = 12 mIU/mL, other than the individual is considered to be immune to HBV infection. The results of this assay can be falsely lowered due to the consumption of Biotin. 01/13/2020 11:5 0 EDT 01/13/2020 12:50 EDT [facility] - 01/13/2020 14:29 EDT Does PT Have a Latex Allergy? NO Enter/Edit CPT and ICD codes? N Michelle VIGIL CHEMISTRY & BLOOD GAS ORDERABLES Final Result Performing Organization Address [facility]/ZIP Co de Phone Number [facility] * HIV 1/2 AB, P24 AG - [facility] (01/13/2020 11:50 EDT) HIV 1/2 AB, P24 AG - [facility] Negative Negative 01/13/2020 14:08 EDT [facility] 01/13/2020 11:5 0 EDT 01/13/2020 12:50 EDT Narrative [facility] - 01/13/2020 14:08 EDT Does PT Have a Latex Allergy? NO us Michelle VIGIL CHEMISTRY & BLOOD GAS ORDERABLES Final Result [facility] documented in this encounter Visit Diagnoses Not on filedocumented in this encounter Care Teams Parts Assembler Relationship Specialty Start Date End Date Terri Holman NP [address] [place] [phone] PCP - General 10/17/19 documented as of this encounter
--- OUTSIDE RECORDS SUMMARY | 2024-11-09 15:43 | XMS_ITS | Encounter Summary ---
Author Organization [facility] Address [address] [place] [address] Care Team Providers Care 7Th Grade Teacher Name Role Phone Unknown, Provider Primary Care Provider Unava ilable Encounter Details Date Type Department Care Team (Late st Contact Info) Description 04/23/2019 Historical Results Only [facility] Lab - Main [address] [address] Terri Holman, HALFWAY HOUSE COUNSELOR [address] [place] [phone] Social History Tobacco Use Types Packs/Day [...] Procedure Name Priority Date/Time Associated Diagnosis Comments POCT URINALYSIS Routine 04/23/2019 16:02 EDT BACTERIAL CULTURE, URINE Routine 04/23/2019 16:00 EDT documented in this encounter Results * POCT URINALYSIS (04/23/2019 16:02 EDT) URINE APPEARANCE - [facility] Clear CLEAR 04/23/2019 16:02 EDT [facility] URINE BILIRUBIN - DIPSTICK - [facility] Negative NEGATIVE 04/23/2019 16:02 EDT [facility] URINE BLOOD - [facility] Negative NEGATIVE 04/23/2019 16:02 EDT [facility] URINE COLOR - [facility] Yellow YELLOW 04/23/2019 16:02 EDT [facility] URINE GLUCOSE - DIP[place] - [facility] Negative NEGATIVE 04/23/2019 16:02 EDT [facility] URINE KETONE - [facility] Negative NEGATIVE 04/23/2019 16:02 EDT [facility] URINE LEUK ESTERASE - [facility] Negative NEGATIVE 04/23/2019 16:02 EDT [facility] URINE NITRITE - [place] - [facility] Positive NEGATIVE 04/23/2019 16:02 EDT [facility] URINE PH - [facility] 7.0 () 9 16:02 EDT [facility] URINE PROTEIN - [place] - [facility] Negative NEGATIVE 04/23/2019 16:02 EDT [facility] URINE SPECIFIC GRAVITY - [facility] 1.020 () 04/23/2019 16:02 [facility] URINE UROBILINOGEN - DIPSTICK - [facility] 0.2 0.2 - 1.0 EU/DL 04/23/2019 16:02 EDT [facility] 04/23/2019 16:0 2 EDT 04/23/2019 16:02 EDT us Terri Holman NP POINT OF CARE TEST ORDERABLES Fi nal Result [facility] * BACTERIAL CULTURE, URINE (04/23/2019 16:00 EDT) USUAL UROGENITAL SUE - [facility] UUV 04/25/2019 11:57 EDT [facility] CitrateConcentration 10,000-1 00,000 CFU/ML 04/25/2019 11:57 EDT [facility] 04/23/2019 16:0 0 EDT 04/23/2019 18:45 EDT Comment:VOID Narrative [facility] - 04/25/2019 11:57 EDT Does PT Have a Latex Allergy? NO us Terri Kopecky HALFWAY HOUSE COUNSELOR MICROBIOLOGY - GENERAL ORDERABLE S Final Result [facility] documented in this encounter Visit Diagnoses Not on filedocumented in this encounter Care Teams 7Th Grade Teacher Relationship Specialty Start Date End Date Unknown, Provider, PCP - General 12/15/10 10/16/19 documented as of this encounter
--- OUTSIDE RECORDS SUMMARY | 2024-11-09 15:43 | XMS_ITS | Encounter Summary ---
Author Organization [facility] Address [address] [place] [address] Care Team Providers Care Sales Director Name Role Phone Manda Terri MARTÍNEZ Primary Care Provider [phone] Encounter Details Date Type Department Care Team (Late st Contact Info) Description 10/17/2019 Results Only Imaging [facility] Radiology Results [address] [place], [place] [id number] Michelle Quiroga, PA [address] [place] [phone] Social History Tobacco Use Types Packs/Day [...] Procedure Name Priority Date/Time Associated Diagnosis Comments US ABDOMEN LIMITED 10/17/2019 8:36 EST documented in this encounter Results * US ABDOMEN LIMITED (10/17/2019 8:36 EST) Anatomical Region Laterality Modality Abdomen, Body Ultrasound 10/17/2019 8:33 EST Narrative 10/17/2019 8:36 EST ? EXAM: ULTRASOUND/RIGHT UPPER QUADRANT ? EX. D/ (0824) ? CLINICAL INFORMATION: ? R10.11 RUQ ABDOMINAL PAIN ? RIGHT UPPER QUADRANT ? Signs and Symptoms/Comments: ??R10.11 RUQ ABDOMINAL PAIN ? Comparison: CT abdomen pelvis on 04/16/2018. Right upper quadrant ? ultrasound on 12/04/2013. ? Technique: Right upper quadrant abdominal ultrasound was performed ? with color Doppler imaging. ? FINDINGS: ? Pancreas: The visible portion of the pancreas is grossly ? unremarkable. ? Liver: The liver is normal in size (measuring 13.6 cm). The liver is ? normal in echotexture. No focal hepatic mass is identified. ? Bile Ducts: No biliary dilatation is identified. The common bile duct ? measures 1.8 mm. ? Gallbladder: The gallbladder contains no stones. The gallbladder wall ? is normal in thickness (1.4 mm). No pericholecystic fluid is visible. ? No sonographic Escobar's sign was elicited. ? Right Kidney: The right kidney is normal in size, measuring 9.1 cm. ? No renal mass is identified. No shadowing calculi are visible. No ? hydronephrosis is present. ? IVC: The visible portion of the proximal IVC is unremarkable. ? IMPRESSION: ? Normal right upper quadrant ultrasound. ? REPORT SIGNED IN OTHER VENDOR SYSTEM 10/17/2019 ?Reported By: Alvin Jalloh MD ? CC: ? Transcribed Date/Time: 10/17/2019 (835) ? Food Processing Scientist: ? Printed Date/Time: 10/17/2019 (835) ? PAGE 1 ? Signed Report ? Procedure Note Alvin Jalloh MD - 10/17/2019 EXAM: ULTRASOUND/RIGHT UPPER QUADRANT EX. D/ (0824) CLINICAL INFORMATION: R10.11 RUQ ABDOMINAL PAIN RIGHT UPPER QUADRANT Signs and Symptoms/Comments: R10.11 RUQ ABDOMINAL PAIN Comparison: CT abdomen pelvis on 04/16/2018. Right upper quadrant ultrasound on 12/04/2013. Technique: Right upper quadrant abdominal ultrasound was performed with color Doppler imaging. FINDINGS: Pancreas: The visible portion of the pancreas is grossly unremarkable. Liver: The liver is normal in size (measuring 13.6 cm). The liveris normal in echotexture. No focal hepatic mass is identified. Bile Ducts: No biliary dilatation is identified. The common bileduct measures 1.8 mm. Gallbladder: The gallbladder contains no stones. The gallbladderwall is normal in thickness (1.4 mm). No pericholecystic fluid isvisible. No sonographic Escobar's sign was elicited. Right Kidney: The right kidney is normal in size, measuring 9.1 cm. No renal mass is identified. No shadowing calculi are visible. No hydronephrosis is present. IVC: The visible portion of the proximal IVC is unremarkable. IMPRESSION: Normal right upper quadrant ultrasound. REPORT SIGNED IN OTHER VENDOR SYSTEM 10/17/2019 Reported By: Alvin Jalloh MD CC: Transcribed Date/Time: 10/17/2019 (835) Food Processing Scientist: Printed Date/Time: 10/17/2019 (835) PAGE 1 Signed Report Michelle VIGIL IMG US ORDERABLES Final Result documented in this encounter Visit Diagnoses Not on filedocumented in this encounter Care Teams Sales Director Relationship Specialty Start Date End Date Terri Holman NP [address] [place] [phone] PCP - General 10/17/19 documented as of this encounter
--- OUTSIDE RECORDS SUMMARY | 2024-11-09 15:43 | XMS_ITS | Clinical Summary ---
Author Organization [facility] Address [address] [place] [address] Care Team Providers Care Produce Inspector Name Role Phone Terri Holman NP Primary Care Provider [phone] Allergies Active Allergy Reactions Criticality Noted Date Comments Nickel Rash Low 11/22/2019 Medications cetirizine (ZYRTEC) 10 mg tablet Take 10 mg by mouth daily. Active hydrOXYzine (ATARAX) 10 mg tablet Take 10 mg by mouth daily as needed. Active valACYclovir (VALTREX) 1 gram tablet Take 1,000 mg by mouth daily. Active doxycycline (VIBRA-TABS) 10mg/ml Take 100 mg by mouth 2 times daily as needed. Active norethindrone (REY-BE) 0.35 mg tablet Take 1 Tab by mouth daily. Active ibuprofen (MOTRIN) 800 mg tablet Take 800 mg by mouth every 6 hours as needed for Pain. Active Encounters Date Type Department Care Team Description 10/13/2024 Lab Requisition [facility] Pathology & Laboratory Medicine - [facility] [address] [place] [address] Outr Resulting Lab, Provider from Last 3 Months Family History Medical History Relation Comments Breast Cancer Paternal Grandmother Relation Status Comments Paternal Grandmother Social History Tobacco Use Types Packs/Day Years Used Date Smoking Tobacco: Never Assessed Interpersonal Safety Answer Date Record ed Physically Hurt Never 06/07/2020 Verbally Threaten Not on file 06/07/2020 Comments No Sex and Gender Information Value Date Recorded Sex Assigned at Not on file Legal Sex Female 17:56 EST Gender Identity Female 04/26/2023 12:36 EDT Sexual Orientation Not on file Obstetrics History Para Term AB IAB SAB Ectopic Multiple Livin g Live Births 0 0 0 Last Filed Vital Signs Vital Sign Reading Time Taken Comments Blood Pressure 118/82 12/12/2020 1158 EST Pulse 90 12/12/2020 1158 EST Temperature 36.6 ??C (97.9 ??F) 12/12/2020 1158 EST Respiratory Rate 16 12/12/2020 1158 EST Oxygen Saturation 99% 12/12/2020 1158 EST Inhaled Oxygen Concentration - - Weight - - Height - - Body Mass Index - - Plan of Treatment Health Maintenance Due Date Last Done Comments Hepatitis B Vaccine (1 of 3 - 19+ 3-dose series) 05/29 COVID-19 Vaccine (2023- season) 2024 Advance Directive Review 02/04/2025 Hepatitis C Screen Completed 01/13/2020 Procedures Procedure Name Priority Date/Time Associated Diagnosis Comments CHLAMYDIA/N. GONORRHOEAE AMPLIFIED NUCLEIC ACID Routine 10/13/2024 18:04 EST [place]PATITIS C AB W/[place] [facility] [place] 01/13/2020 11:50 EDT from Last 3 Months or Most Recently Relevant to Health Maintenance Results * CHLAMYDIA/N. GONORRHOEAE AMPLIFIED NUCLEIC ACID (10/13/2024 18:04 EST) Neisseria gonorrhoeae Result Negative Negative 10/15/2024 11:36 EST [facility] Chlamydia trachomatis Result Negative Negative 10/15/2024 11:36 EST [facility] Urine URINE / Unknown 10/13/2024 1 8:04 EST 10/14/2024 17:01 EST Narrative [facility] - 10/15/2024 11:36 EST A first catch urine specimen is acceptable for detection of Gonorrhea and Chlamydia, but might detect up to 10% fewer infections when compared with vaginal swab samples. us Provider Outr Resulting Lab MICROBIOLOGY - GENER AL ORDERABLES Final Result [facility] [address] [place] [address] * HEPATITIS C AB W/REFLEX [place] [facility] (01/13/2020 11:50 EDT) HEPATITIS C AB W/REFLEX [place] [facility] Negative 01/13/2020 14:16 EDT [facility] Comment:Expected Values: Neg ative. 01/13/2020 11:5 0 EDT 01/13/2020 12:50 EDT Narrative [facility] - 01/13/2020 14:29 EDT Does PT Have a Latex Allergy? NO Enter/Edit CPT and ICD codes? N us Michelle VIGIL CHEMISTRY & BLOOD GAS ORDERABLES Final Result [facility] from Last 3 Months or Most Recently Relevant to Health Maintenance Insurance [address] [place] [address] [place] [address] Advance Directives For more information, please contact: [phone] Documents on File Type Date Recorded Patient Manager Chemical Expl anation Advance Directive 02/05/2020 13:11 11-20-19 appoinmtment of a health care agent Care Teams Produce Inspector Relationship Specialty Start Date End Date Terri Holman NP [address] [place] [phone] PCP - General 10/17/19
--- OUTSIDE RECORDS SUMMARY | 2024-11-09 15:43 | XMS_ITS | Encounter Summary ---
Author Organization [facility] Address [address] [place] [address] Care Team Providers Care Lathe Set Up Person Name Role Phone Unknown, Provider Primary Care Provider Unava ilable Encounter Details Date Type Department Care Team (Late st Contact Info) Description 09/20/2018 Historical Results Only [facility] Lab - Main [address] [id number] Terri Holman NP [address] [place] [phone] Social History Tobacco Use Types Packs/Day [...] Name Priority Date/Time Associated Diagnosis Comments POCT CHOLESTEROL LDL ([facility] Routine 09/20/2018 14:14 EST documented in this encounter Results * (ABNORMAL) POCT CHOLESTEROL LDL ([facility]) (09/20/2018 14:14 EST) LDL CHOLESTEROL - [facility] 121(H) 60 - 100 MG/DL 09/20/2018 14:15 EST [facility] 09/20/2018 14:1 4 EST 09/20/2018 14:14 EST us Terri Kopecky MAINTENANCE MECHANIC SUPERVISOR POINT OF CARE TEST ORDERABLES Fi nal Result [facility] documented in this encounter Visit Diagnoses Not on filedocumented in this encounter Care Teams Lathe Set Up Person Relationship Specialty Start Date End Date Unknown, Provider, PCP - General 12/15/10 10/16/19 documented as of this encounter
--- OUTSIDE RECORDS SUMMARY | 2024-11-09 15:43 | XMS_ITS | Clinical Summary ---
Author Organization [facility] Address [facility] [place] [address] Care Team Providers Care Ski Topper Name Role Phone Nii Dill MD Primary Care Provider [phone] Allergies Active Allergy Reactions Criticality Noted Date Comments Nickel Rash Low 11/22/2019 Medications Medication Sig Dispensed Refills Start Date End Date Status ergocalciferol (VITAMIN D) 50,000 unit capsule Take 1 (ONE)Capsule(s) (03615 UNIT = 1 Capsule(s)) QWEEK for 8 Weeks.Take 1 (ONE)Capsule(s) (34520 UNIT = 1 Capsule(s)) Q 2WEEKS for 1 Year. 08/07/2007 Active sulfacetamide (KLARON) 10 % Suspension Apply to face twice daily. 118 mL 3 07/25/2018 Active Additional Information Patient not taking.Reported on 10/18/2018 Sheryl COOK, 3-0.02 mg Tablet 09/20/2018 Active valACYclovir (VALTREX) 1 gram Tablet Take 1,000 mg by mouth daily. Active spironolactone (ALDACTONE) 100 mg Tablet Take 1.5 tablets by mouth daily. 90 tablet 3 10/18/2018 Active Doxycycline Hyclate (PERIOSTAT) 100 mg Tablet, Delayed Release (E.C.) Take 1 tablet by mouth every other day. 15 tablet 10/18/2018 Active cetirizine (ZYRTEC) 10 mg Tablet Take 10 mg by mouth daily. Active hydrOXYzine (ATARAX) 10 mg Tablet Take 10 mg by mouth daily as needed (sleep aid). Active tretinoin (RETIN-A) 0.025 % Cream Apply a pea sized amount to entire face every third night, work up to nightly 45 g 3 11/22/2019 Active Social History Tobacco Use Types Packs/Day Years Used Date Smoking Tobacco: Some Days Cigars Smokeless Tobacco: Never Sex and Gender Information Value Date Recorded Sex Assigned at Not on file Gender Identity Not on file Sexual Orientation Not on file Plan of Treatment Health Maintenance Due Date Last Done Comments HIV screen 2008 Hepatitis C Screening 2008 Lipid Screening 2008 Hepatitis B vaccine (0-59 yrs) (1) 2009 Tetanus/Diphtheria/Pertussis Vaccines (1 - Tdap) 05/29 HPV test 2020 PAP Smear 2020 Covid-19 Vaccine (1 - 2023- season) 2024 Influenza (Flu) vaccine (1 o f 1 - Influenza standard series) 07/07/2024 Care Teams Ski Topper Relationship Specialty Start Date End Date Nii Dill MD [address] [place] [address] PCP - General Family Medicine 07/25/18
--- OUTSIDE RECORDS SUMMARY | 2024-11-09 15:43 | XMS_ITS | Encounter Summary ---
Author Organization [facility] Address [address] [place] [address] Care Team Providers Care Welder Helper Name Role Phone Unknown, Provider Primary Care Provider Unava ilable Encounter Details Date Type Department Care Team (Late st Contact Info) Description 04/29/2019 Historical Results Only [facility] Lab - Main [address] [address] Terri Holman, OUTBOUND SUPERVISOR [address] [place] [phone] Social History Tobacco Use Types Packs/Day [...] Procedure Name Priority Date/Time Associated Diagnosis Comments TRICHOMONAS VAGINALIS PCR [place] [facility] Routine 04/29/2019 14:50 EDT [facility] [place] - [facility] Routine 04/29/2019 14:32 EDT BACTERIAL CULTURE, URINE Routine 04/29/2019 11:10 EDT documented in this encounter Results * TRICHOMONAS VAGINALIS PCR - [facility] (04/29/2019 14:50 EDT) SOURCE VAGINAL 04/29/2019 21:05 EDT [facility] TRICHOMONAS VAGINALIS PCR NOT DETECTED 04/29/2019 21:05 EDT [facility] Comment: Xpert TV assay performance has not been evaluated in women or in patients with a history of hysterectomy. 04/29/2019 14:5 0 EDT 04/29/2019 18:15 EDT Narrative [facility] - 04/29/2019 21:05 EDT Does PT Have a Latex Allergy? NO us Terri Holman OUTBOUND SUPERVISOR HEMATOLOGY & PF4 ORDERABLES Yeimi l Result [facility] * BHCG URINE POC - [facility] (04/29/2019 14:32 EDT) CG SCREEN (URINE) - [facility] NEG NEGATIVE 04/29/2019 14:33 EDT [facility] 04/29/2019 14:3 2 EDT 04/29/2019 14:32 EDT us Terri Holman NP CHEMISTRY & BLOOD GAS ORDERABLES Final Result [facility] * BACTERIAL CULTURE, URINE (04/29/2019 11:10 EDT) Pathologist [facility] USUAL UROGENITAL SUE - [facility] UUV 05/01/2019 11:32 EDT [facility] CitrateConcentration <10,000 CFU/ML 04/07 11:32 EDT [facility] 04/29/2019 11:1 0 EDT 04/29/2019 13:30 EDT Comment:VOID Narrative [facility] - 05/01/2019 11:32 EDT Does PT Have a Latex Allergy? NO Terri Holman NP MICROBIOLOGY - GENERAL ORDERABLE S Final Result [facility] documented in this encounter Visit Diagnoses Not on filedocumented in this encounter Care Teams Welder Helper Relationship Specialty Start Date End Date Unknown, Provider, PCP - General 12/15/10 10/16/19 documented as of this encounter
--- OUTSIDE RECORDS SUMMARY | 2024-11-09 15:43 | XMS_ITS | Encounter Summary ---
Author Organization [facility] Address [address] [place] [address] Care Team Providers Care Kick Press Operator Name Role Phone Unknown, Provider Primary Care Provider Terri Lei NP Primary Care Provider [phone] Encounter Details Date Type Department Care Team (Late st Contact Info) Description 04/04/2019 Historical Results Only [facility] Lab - Main [address] [place], [place] [address] Terri Holman NP [address] [place] [phone] Social History Tobacco Use Types [...] Procedure Name Priority Date/Time Associated Diagnosis Comments BACTERIAL CULTURE, URINE Routine 04/04/2019 11:50 EDT documented in this encounter Results * BACTERIAL CULTURE, URINE (04/04/2019 11:50 EDT) ESCHERIACHIA COLI [facility] ESCHERICHIA COLI 04/06/2019 7:54 EDT [facility] CitrateConcentration >100,000 CFU/ML 11/2018 7:54 [facility] 04/04/2019 11:5 0 EDT 04/04/2019 13:10 EDT Comment:VOID Narrative [facility] - 04/06/2019 7:54 EDT Does PT Have a Latex Allergy? NO Organism Antibiotic Method Susceptibility Escherichia coli Ampicillin Sulbactam GRAM NEGAT KARLIE SUSCEPTIBILITY - [facility] 16: Intermediate Escherichia coli Ampicillin GRAM NEGATIVE SUSCEPTIBILITY - [facility] >=32: Resistant Escherichia coli Amoxicillin Clavulan ic acid GRAM NEGATIVE SUSCEPTIBILITY - [facility] 8: Susceptible Escherichia coli Ceftriaxone GRAM NEGATIVE SUSCEPTIBILITY - [facility] <=1: Susceptible Escherichia coli Cefazolin GRAM NEGATIVE SUSCEPTIBILITY - [facility] <=4: Susceptible Escherichia coli Ciprofloxacin GRAM NEGATIVE SUSCEPTIBILITY - [facility] <=0.25: Susceptible Escherichia coli Cefepime GRAM NEGATIVE SUSCEPTIBILITY - [facility] <=1: Susceptible Escherichia coli Ertapenem GRAM NEGATIVE SUSCEPTIBILITY - [facility] <=0.5: Susceptible Escherichia coli Nitrofurantoin GRAM NEGATIVE SUSCEPTIBILITY - [facility] <=16: Susceptible Escherichia coli Gentamicin GRAM NEGATIVE SUSCEPTIBILITY - [facility] <=1: Susceptible Escherichia coli Levofloxacin GRAM NEGATIVE SUSCEPTIBILITY - [facility] <=0.12: Susceptible Escherichia coli Trimethoprim-Sulfame th oxazole GRAM NEGATIVE SUSCEPTIBILITY - [facility] <=20: Susceptible Escherichia coli Tobramycin GRAM NEGATIVE SUSCEPTIBILITY - [facility] <=1: Susceptible Comment:See Reason(s) for St [facility] us Terri Holman NP MICROBIOLOGY - GENERAL ORDERABLE S Edited Result - Final [facility] documented in this encounter Visit Diagnoses Not on filedocumented in this encounter Care Teams Kick Press Operator Relationship Specialty Start Date End Date Unknown, Provider, PCP - General 12/15/10 10/16/19 Terri Holman NP [address] [place] [phone] PCP - General 10/17/19 documented as of this encounter
--- OUTSIDE RECORDS SUMMARY | 2024-11-09 15:43 | XMS_ITS | Encounter Summary ---
Author Organization [facility] Address [address] [place] [address] Care Team Providers Care Manager Rental Name Role Phone Terri Holman NP Primary Care Provider [phone] Reason for Visit * Reason Comments Ankle Injury R ankle injury Encounter Details Date Type Department Care Team (Late st Contact Info) Description 12/12/2020 11:45 EST Walk-In [facility] [address] [place] [address] Nadeen Byers, CAREER COUNSELOR [address] [place] [phone] Acute right ankle pain (Primary Dx) Social History Tobacco Use Types Packs/Day Years Used Date Smoking Tobacco: Never Assessed Interpersonal Safety Answer Date Record ed Physically Hurt Never 06/07/2020 Verbally Threaten Not on file 06/07/2020 Comments Unknown Sex and Gender Information Value Date Recorded Sex Assigned at Not on file Legal Sex Female 17:56 EST Gender Identity Female 04/26/2023 12:36 EDT Sexual Orientation Not on file documented as of this encounter Last Filed Vital Signs Vital Sign Reading Time Taken Comments Blood Pressure 118/82 12/12/2020 1158 EST Pulse 90 12/12/2020 1158 EST Temperature 36.6 ??C (97.9 ??F) 12/12/2020 1158 EST Respiratory Rate 16 12/12/2020 1158 EST Oxygen Saturation 99% 12/12/2020 1158 EST Inhaled Oxygen Concentration - - Weight - - Height - - Body Mass Index - - documented in this encounter Patient Instructions * Patient Instructions* Nadeen Byers, BIOLOGICAL SCIENCE TECHNICIAN - 12/12/2020 11:45 EST Your x-ray in clinic today was normal by my read, and confirmed by the radiology read. Use SYLVESTER wrap as fitted in clinic for compression and support when you are home and able to mostly rest and stay off your foot. Use short walking boot when at work and walking around more. Use walkingboot at work for at least one week, then may reduce use as guided by your own pain and swelling. Rest, ice, elevate and use ibuprofen for both swelling and pain. Expect the discomfort to graduallyimprove day by day. For pain which persists and/or has not improved in 10 to 14 days, please returnto clinic for reevaluation. [facility] Patient Instructions Learning About RICE (Rest, Ice, Compression, and Elevation) What is RICE? RICE is a way to care for an injury. RICE helps relieve pain and swelling. It may also help with healing and flexibility. RICE stands for: ?? Rest and protect the injured or sore area. ?? Ice or a cold pack used as soon as possible. ?? Compression, or wrapping the injured or sore area with an elastic bandage. ?? Elevation (propping up) the injured or sore area. How do you do RICE? You can use RICE for home treatment when you have general aches and pains or after an injury or surgery. Rest ?? Do not put weight on the injury for at least 24 to 48 hours. ?? Use crutches for a badly sprained knee or ankle. ?? Support a sprained wrist, elbow, or shoulder with a sling. Ice ?? Put ice or a cold pack on the injury right away to reduce pain and swelling. Frozen vegetables will also work as an ice pack. Put a thin cloth between the ice or cold pack and your skin. The clothprotects the injured area from getting too cold. ?? Use ice for 10 to 15 minutes at a time for the first 48 to 72 hours. Compression ?? Use compression for sprains, strains, and surgeries of the arms and legs. ?? Wrap the injured area with an elastic bandage or compression sleeve to reduce swelling. ?? Don't wrap it too tightly. If the area below it feels numb, tingles, or feels cool, loosen the wrap. Elevation ?? Use elevation for areas of the body that can be propped up, such as arms and legs. ?? Prop up the injured area on pillows whenever you use ice. Keep it propped up anytime you sit or lie down. ?? Try to keep the injured area at or above the level of your heart. This will help reduce swellingand bruising. Where can you learn more? Go to https://www.Nanophthalmics.net/CmyCasaealCulture Jam or log into your [employer] account at [email or web address] Enter I463 in the search box to learn more about Learning About RICE (Rest, Ice, Compression, and Elevation). Current as of: May 01, 2019 Content Version: 12.2 ?? [id number] [employer]. Care instructions adapted under license by [facility]. If you have questions about a medical condition or this instruction, always askyour healthcare professional. [employer] disclaims any warranty or liability for youruse of this information. documented in this encounter Progress Notes * Jessica Arango - 12/12/2020 1145 EST Reason patient is referred to [facility]: CC: HPI: Was at work yesterday, twisted R ankle and fell. Painful to bear weight and is swollen. Cough? Y/N No Healthcare worker (if yes place of employment): Yes Previous Testing for Covid-19: Yes 2/ with negative results PMH: No Asthma/COPD/use of bronchodilators: No Smoking: No Work hx: [employer] PCP: Terri Holman NP * Nadeen Byers APRN - 12/12/2020 1145 EST Worker's [facility] Initial Visit Note Subjective: Chief Complaint(s): Ankle Injury (R ankle injury) HPI: Leia Carroll is a 30 y.o. year-old female that I am seeing in after a reported work-place injury. 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 She reports that she had immediate sharp pains in the lateral malleoli region and felt numbness in her toes. She was able to get up on her own and ambulate. She was able to complete her workday, but her ankle continues to be quite painful with weightbearing and is swollen at the lateral malleolus, so she presents today for evaluation. No reported past significant injury to this ankle or foot. She is otherwise generally healthy. She has not yet used any compression. Separately, she reports during Covid screening that she was with her sister for over 30 minutes of unmasked close contact 7 days ago (12/05/20). Her sister developed Covid symptoms on (12/10/20) and had a positive test. Patient denies any Covid symptoms at this time. She has screening tests every Monday work. Her test this week (12/07/20) was negative, and she has discussed her exposure and any possible risk with her employer who correctly told her that as she was not exposed to her sister in the 48 hours prior to her sister developing symptoms, she would not be considered a close contactat high risk. Patient states that she does not feel that she needs testing today as she is asymptoma tic and will have testing at work again on Monday (12/14/20). I have reviewed patient's medication list, relevant medical/social/family history and updated as appropriate on 12/12/2020. ROS: ROS Objective: Examination: Vitals: oral temperature is 36.6 ??C (97.9 ??F). Her blood pressure is 118/82 and her pulse is 90. Her respiration is 16 and oxygen saturation is 99%. There is no height or weight on file to calculate BMI. Physical Exam Vitals signs and nursing note reviewed. Constitutional: Appearance: Normal appearance. Musculoskeletal: Normal range of motion. General: Swelling present. Comments: Right ankle with mild swelling over lateral malleolus, mildly tender to palpation of same. There is no ecchymosis, abrasion, erythema, edema observed. Full active range of motion to digits foot and ankle with mild discomfort reported on rotation of ankle and lateral movement. Minimally painful with flexion and extension of ankle. Negative Mcintosh's test. Skin: General: Skin is warm and dry. Capillary Refill: Capillary refill takes less than 2 seconds. Findings: No bruising or erythema. Neurological: Mental Status: She is alert and oriented to person, place, and time. Data reviewed with patient (past results): Reviewed and/or ordered imaging tests Assessment & Plan: The reason for visit is related to reported mechanism of injury. X-ray obtained while patient in clinic. Xray images reviewed independently and radiology report reviewed when available, results as below. XR ANKLE RIGHT 3 OR MORE VIEWS EXAM: RADIOLOGY/ANKLE RIGHT 3 + VIEW EX. D/ (1218) CLINICAL INFORMATION: M25.571. FALL, ANKLE PAIN. PROCEDURE INFORMATION: Exam: XR Right Ankle Exam date and time: 12/12/2020 12:01 PM Age: 30 years old Clinical indication: Pain; Ankle; Right; Additional info: M25.571. Fall, ankle pain. TECHNIQUE: Imaging protocol: XR Right ankle. Views: 3 or more views. COMPARISON: No relevant prior studies available. FINDINGS: Bones/joints: No acute fracture or dislocation. Soft tissues: Lateral soft tissue swelling. IMPRESSION: 1. No acute fracture or dislocation. 2. Lateral soft tissue swelling. REPORT SIGNED IN OTHER VENDOR SYSTEM 12/12/2020 Reported By: Jaja Figueroa MD 1. Acute right ankle pain XR ANKLE RIGHT 2 VIEWS Shared decision making with patient regarding splinting and support. Patient is fitted with double layer Sylvester wrap which she reports feels very supportive. She is also fitted for a short walking boot prior to leaving clinic. We agreed that when she is not at work and is able to avoid unnecessary walking and standing and is able to mostly sit and rest with her ankle elevated, the Sylvester wrap will be sufficient. She will use the walking boot at work until swelling and pain have begun to subside and then will adjust and titrate use of walking boot as guided by her own comfort. She was provided with a work note allowing her to return to work on Thursday 12/14 with adjustments to her work duties to allow for intermittent elevation and rest of ankle as needed. No Occupational Medicine referral was madetoday as I anticipate that this injury will heal without complication. Patient's work restrictions are to on 01/04/2021 and patient understands that should she still be having any pain or swelling she will need to return for reevaluation at that time both for concern for more complex injury and for any needed continued adjustments to work duties. Patient discharged home for supportive care and watchful waiting. Rice protocol discussed with patient as documented in patient instructions. documented in this encounter Plan of Treatment Not on file documented as of this encounter Procedures Procedure Name Priority Date/Time Associated Diagnosis Comments XR ANKLE RIGHT 3 OR MORE VIEWS 12/12/2020 12:41 EST documented in this encounter Results * XR ANKLE RIGHT 3 OR MORE VIEWS (12/12/2020 12:41 EST) Anatomical Region Laterality Modality Lower Extremities, Ankle Right Compute d Radiography 12/12/2020 12:4 0 EST Narrative 12/12/2020 12:41 EST ? EXAM: RADIOLOGY/ANKLE RIGHT 3 + VIEW ?EX. D/ (1218) ? CLINICAL INFORMATION: ? M25.571. FALL, ANKLE PAIN. ? PROCEDURE INFORMATION: ? Exam: XR Right Ankle ? Exam date and time: 12/12/2020 12:01 PM ? Age: 30 years old ? Clinical indication: Pain; Ankle; Right; Additional info: M25.571. ? Fall, ankle pain. ? TECHNIQUE: ? Imaging protocol: XR Right ankle. ? Views: 3 or more views. ? COMPARISON: ? No relevant prior studies available. ? FINDINGS: ? Bones/joints: No acute fracture or dislocation. ? Soft tissues: Lateral soft tissue swelling. ? IMPRESSION: ? 1. No acute fracture or dislocation. ? 2. Lateral soft tissue swelling. ? REPORT SIGNED IN OTHER VENDOR SYSTEM 12/12/2020 ?Reported By: Jaja Figueroa MD ? CC: ? Transcribed Date/Time: 12/12/2020 (1241) ? Discovery Guide: ? Printed Date/Time: 12/12/2020 (1241) ? PAGE 1 ? Signed Report ? Procedure Note Jaja Figueroa MD - 12/12/2020 EXAM: RADIOLOGY/ANKLE RIGHT 3 + VIEW EX. D/ (1218) CLINICAL INFORMATION: M25.571. FALL, ANKLE PAIN. PROCEDURE INFORMATION: Exam: XR Right Ankle Exam date and time: 12/12/2020 12:01 PM Age: 30 years old Clinical indication: Pain; Ankle; Right; Additional info: M25.571. Fall, ankle pain. TECHNIQUE: Imaging protocol: XR Right ankle. Views: 3 or more views. COMPARISON: No relevant prior studies available. FINDINGS: Bones/joints: No acute fracture or dislocation. Soft tissues: Lateral soft tissue swelling. IMPRESSION: 1. No acute fracture or dislocation. 2. Lateral soft tissue swelling. REPORT SIGNED IN OTHER VENDOR SYSTEM 12/12/2020 Reported By: Jaja Figueroa MD CC: Transcribed Date/Time: 12/12/2020 (124) Discovery Guide: Printed Date/Time: 12/12/2020 (1241) PAGE 1 Signed Report us Nadeen M Ingpen CAREER COUNSELOR IMG DIAGNOSTIC IMAGING ORDERABL ES Final Result documented in this encounter Visit Diagnoses Diagnosis Acute right ankle pain- Primary documented in this encounter Historical Medications * This list may reflect changes made after this encounter. ibuprofen (MOTRIN) 800 mg tablet Take 800 mg by mouth every 6 hours as needed for Pain. norethindrone (REY-BE) 0.35 mg tablet Take 1 Tab by mouth daily. doxycycline (VIBRA-TABS) 10mg/ml Take 100 mg by mouth 2 times daily as needed. valACYclovir (VALTREX) 1 gram tablet Take 1,000 mg by mouth daily. hydrOXYzine (ATARAX) 10 mg tablet Take 10 mg by mouth daily as needed. cetirizine (ZYRTEC) 10 mg tablet Take 10 mg by mouth daily. added in this encounter Care Teams Manager Rental Relationship Specialty Start Date End Date Terri Holman NP [address] [place] [phone] PCP - General 10/17/19 documented as of this encounter
--- OUTSIDE RECORDS SUMMARY | 2024-11-09 15:43 | XMS_ITS | Encounter Summary ---
Author Organization [facility] Address [address] [place] [address] Care Team Providers Care Golf Superintendent Name Role Phone Terri Holman NP Primary Care Provider [phone] Encounter Details Date Type Department Care Team (Late st Contact Info) Description 03/11/2021 Results Only [facility] [phone] Michelle Quiroga PA [address] [place] [phone] Social History Tobacco Use Types [...] Associated Diagnosis Comments BACTERIAL CULTURE, URINE Routine 03/11/2021 11:50 EDT documented in this encounter Results * BACTERIAL CULTURE, URINE (03/11/2021 11:50 EDT) USUAL [facility]OGEN[facility]UE - [facility] 03/13/2021 10:22 EDT [facility] COLONY COUNT >100,000 CFU/ML 03/13/2021 10:22 T [facility] Urine specimen (specimen) 03/11/2021 11:50 EDT 03/11/2021 13:01 EDT Comment:VOID Narrative [facility] - 03/13/2021 10:22 EDT Does PT Have a Latex Allergy? NO us Michelle VIGIL MICROBIOLOGY - GENERAL ORDERABLE S Final Result [facility] [address] [place] [address] documented in this encounter Visit Diagnoses Not on filedocumented in this encounter Care Teams Golf Superintendent Relationship Specialty Start Date End Date Terri Holman NP [address] [place] [phone] PCP - General 10/17/19 documented as of this encounter
--- OUTSIDE RECORDS SUMMARY | 2024-11-09 15:43 | XMS_ITS | Referral Summary ---
Author Organization [facility] Address [address] [place] [address] Care Team Providers Care Training Designer Name Role Phone Manda Terri MARTÍNEZ Primary Care Provider [phone] Encounters Date Type Department Care Team Description 10/13/2024 Lab Requisition [facility] Laboratory Medicine - [address] [address] Outr Resulting Lab, Provider from Last 3 Months Allergies Active Allergy Reactions Criticality Noted Date [...] 6 hours as needed for Pain. Active Social History Tobacco Use Types Packs/Day Years Used Date Smoking Tobacco: Never Assessed Interpersonal Safety Answer Date Record ed Physically Hurt Never 06/07/2020 Verbally Threaten Not on file 06/07/2020 Comments No Sex and Gender Information Value Date Recorded Sex Assigned at Not on file Legal Sex Female 17:56 EST Gender Identity Female 04/26/2023 12:36 EDT Sexual Orientation Not on file Last Filed Vital Signs Vital Sign Reading Time Taken Comments Blood Pressure 118/82 12/12/2020 1158 EST Pulse 90 12/12/2020 1158 EST Temperature 36.6 ??C (97.9 ??F) 12/12/2020 1158 EST Respiratory Rate 16 12/12/2020 1158 EST Oxygen Saturation 99% 12/12/2020 1158 EST Inhaled Oxygen Concentration - - Weight - - Height - - Body Mass Index - - Plan of Treatment Not on file Procedures Procedure Name Priority Date/Time Associated Diagnosis Comments CHLAMYDIA/N. GONORRHOEAE AMPLIFIED NUCLEIC ACID Routine 10/13/2024 18:04 EST HEPATITIS C AB W/[place]LEX [place] [facility] Routine 01/13/2020 11:50 EDT from Last 3 Months or Most Recently Relevant to Health Maintenance Results * CHLAMYDIA/N. GONORRHOEAE AMPLIFIED NUCLEIC ACID (10/13/2024 18:04 EST) Neisseria gonorrhoeae Result Negative Negative 10/15/2024 11:36 EST [facility] Chlamydia trachomatis Result Negative Negative 10/15/2024 11:36 EST [facility] Urine URINE / Unknown 10/13/2024 1 8:04 EST 10/14/2024 17:01 EST Narrative [facility] - 10/15/2024 11:36 EST A first catch urine specimen is acceptable for detection of Gonorrhea and Chlamydia, but might detect up to 10% fewer infections when compared with vaginal swab samples. us Provider Outr Resulting Lab MICROBIOLOGY - GENER AL ORDERABLES Final Result [facility] [address] [place], [place] [id number] * HEPATITIS C AB W/REFLEX - [facility] (01/13/2020 11:50 EDT) HEPATITIS C AB W/REFLEX [facility] Negative 01/13/2020 14:16 EDT [facility] Comment:Expected Values: Neg ative. 01/13/2020 11:5 0 EDT 01/13/2020 12:50 EDT Narrative [facility] - 01/13/2020 14:29 EDT Does PT Have a Latex Allergy? NO Enter/Edit CPT and ICD codes? N Michelle VIGIL CHEMISTRY & BLOOD GAS ORDERABLES Final Result [facility] from Last 3 Months or Most Recently Relevant to Health Maintenance Insurance [employer] Advance Directives For more information, please contact: [phone] Documents on File Type Date Recorded Patient Retouching Operator Expl anation Advance Directive 02/05/2020 13:11 11-20-19 appoinmtment of a health care agent Care Teams Training Designer Relationship Specialty Start Date End Date Terri Holman NP [address] [place] [phone] PCP - General 10/17/19
--- OUTSIDE RECORDS SUMMARY | 2024-11-09 15:43 | XMS_ITS | Encounter Summary ---
Author Organization [facility] Address [address] [place] [address] Care Team Providers Care Roll Finisher Name Role Phone Jessicaizzy Terri TANYA Primary Care Provider [phone] Encounter Details Date Type Department Care Team (Late st Contact Info) Description 03/26/2021 Results Only [facility] [phone] Michelle Quiroga PA [address] [place] [phone] Social History Tobacco Use Types [...] Procedure Name Priority Date/Time Associated Diagnosis Comments INFLUENZA, RSV, COVID PCR POCT-CV Routine 03/26/2021 9:11 EDT documented in this encounter Results * INFLUENZA, RSV, COVID PCR POCT-CV (03/26/2021 9:11 EDT) SARS-CoV-2 RT-PCR Not Detected NEGATIVE 04/02/2021 9:12 EDT [facility] Comment:THIS TEST HAS BEEN A UTHORIZED BY FDA UNDER AN EUA FOR USE BY AUTHORIZED LABORATORIES. INFLUENZA A PCR - [facility] Negative NEGATIVE 04/02/2021 9:12 EDT [facility] INFLUENZA B PCR - [facility] Negative NEGATIVE 04/02/2021 9:12 EDT [facility] RSV PCR - [facility] Negative NEGATIVE 04/02/2021 9:12 EDT [facility] 03/26/2021 9:11 EDT 03/26/2021 9:11 EDT Narrative [facility] - 04/02/2021 9:12 EDT NEGATIVE RESULTS DO NOT PRECLUDE SARS-COV-2 INFECTION AND SHOULD NOT BE USED THE SOLE BASIS FOR TREATMENT OR OTHER PATIENT MANAGEMENT DECISION. NEGATIVE RESULTS MUST BE COMBINED WITH CLINICAL OBSERVATIONS, PATIENT HISTORY AND EPIDEMIOLOGICAL INFORMATION. us Michelle VIGIL CHEMISTRY & BLOOD GAS ORDERABLES Final Result Performing Organization Address City/State/[facility] Co de Phone Number [facility] [address] [place] [address] documented in this encounter Visit Diagnoses Not on filedocumented in this encounter Care Teams Roll Finisher Relationship Specialty Start Date End Date Terri Holman NP [address] [place] [phone] PCP - General 10/17/19 documented as of this encounter
--- OUTSIDE RECORDS SUMMARY | 2024-11-09 15:43 | XMS_ITS | Encounter Summary ---
Author Organization [facility] Address [facility] [place] [address] Care Team Providers Care Wet Press Tender Name Role Phone Nii Dill MD Primary Care Provider [phone] Encounter Details Date Type Department Care Team (Late st Contact Info) Description 07/25/2018 Telephone Dermatology at [facility] [address] [place] [address] Deanna Tamayo MD [facility] [address] [place] [address] Social History Tobacco Use Types Packs/Day Years Used Date Smoking Tobacco: Some Days Cigars Smokeless Tobacco: Never Sex and Gender Information Value Date Recorded Sex Assigned at Not on file Gender Identity Not on file Sexual Orientation Not on file documented as of this encounter Miscellaneous Notes * Telephone Encounter - Raeann Javed - 07/25/2018 1:24 PM EDT Leia Carroll was seen this morning and wants her prescription sent to the [facility] documented in this encounter Plan of Treatment Not on file documented as of this encounter Visit Diagnoses Not on filedocumented in this encounter Care Teams Wet Press Tender Relationship Specialty Start Date End Date Nii Dill MD [address] [place] [address] PCP - General Family Medicine 07/25/18 documented as of this encounter
--- OUTSIDE RECORDS SUMMARY | 2024-11-09 15:43 | XMS_ITS | Encounter Summary ---
Author Organization [facility] Address [address] [place] [address] Care Team Providers Care Intranet Developer Name Role Phone Unknown, Provider Primary Care Provider Unava ilable Encounter Details Date Type Department Care Team (Late st Contact Info) Description 10/03/2018 Historical Results Only [facility] Lab - Main [address] [phone] Terri Holman, TANYA [address] [place] [phone] Social History Tobacco Use Types Packs/Day [...] Procedure Name Priority Date/Time Associated Diagnosis Comments [facility] URINE POC - [facility] Routine 10/03/2018 11:36 EST documented in this encounter Results * [facility] URINE POC - [facility] (10/03/2018 11:36 EST) [facility] SCREEN (URINE) - [facility] NEG NEGATIVE 10/03/2018 11:[address] [facility] 10/03/2018 11:3 6 EST 10/03/2018 11:36 EST Terri Holman NP CHEMISTRY & BLOOD GAS ORDERABLES Final Result [facility] documented in this encounter Visit Diagnoses Not on filedocumented in this encounter Care Teams Intranet Developer Relationship Specialty Start Date End Date Unknown, Provider, PCP - General 12/15/10 10/16/19 documented as of this encounter
--- OUTSIDE RECORDS SUMMARY | 2024-11-09 15:43 | XMS_ITS | Encounter Summary ---
Author Organization [facility] Address [facility] [place] [address] Care Team Providers Care Computer Programmer Chief Name Role Phone Nii Dill MD Primary Care Provider [phone] Reason for Visit * Reason Comments Follow-up Encounter Details Date Type Department Care Team (Late st Contact Info) Description 10/18/2018 8:30 AM EST Office Visit Dermatology at [facility] [address] [place] [address] Deanna Tamayo MD [facility] [address] MADONNA [place] [address] Acne, unspecified acne type Social History Tobacco Use Types Packs/Day Years Used Date Smoking Tobacco: Some Days Cigars Smokeless Tobacco: Never Sex and Gender Information Value Date Recorded Sex Assigned at Not on file Gender Identity Not on file Sexual Orientation Not on file documented as of this encounter Progress Notes * Deanna Tamayo - 10/18/2018 8:30 AM EST Images from the original note were not included. DERMATOLOGY - ESTABLISHED PATIENT FOLLOW-UP Date of service: 10/18/2018 Leia Carroll : 1990, 28 y.o. Chief Complaint: Chief Complaint Patient presents with ??? Follow-up HPI: Leia Carroll is a 28 y.o. female last seen by myself on 07/25/2018. Ms. Carroll returns today for a follow up of perioral dermatitis vs hormonal acne, which she has been treating with doxycycline 100mg every other day and spironolactone 150mg daily. She has not beentreating with the Klaron because she doesn't like the way her skin felt. She recently started a newcombination control (Kaylan) about 2 weeks ago and she has already noticed an improvement in her skin. She reports having irregular periods before starting the control and is unsure if this was due to the spironolactone. She does not have any concerns today and believes she'll be able tocome off the doxycycline. She is going to [place] in the beginning of November for 3 weeks. Relevant Skin History: - Eczema ?? Family History: Eczema: Mother ?? 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 KAYLAN, 28, 3-0.02 mg Tablet ??? Doxycycline Hyclate (PERIOSTAT) 100 mg Tablet, Delayed Release (E.C.) Take 100 mg by mouth every other day. ??? valACYclovir (VALTREX) 1 gram Tablet Take 1,000 mg by mouth daily. ??? spironolactone (ALDACTONE) 50 mg Tablet Take 2 tablets every morning. If tolerating, increase to 30 tabs every morning at 2 weeks. 90 tablet 3 ??? ergocalciferol (VITAMIN D) 50,000 unit capsule Take 1 (ONE)Capsule(s) (32647 UNIT = 1 Capsule(s)) QWEEK for 8 Weeks.Take 1 (ONE)Capsule(s) (54677 UNIT = 1 Capsule(s)) Q 2WEEKS for 1 Year. ??? sulfacetamide (KLARON) 10 % Suspension Apply to face twice daily. (Patient not taking: Reportedon 10/18/2018) 118 mL 3 No current facility-administered medications for this visit. Allergies: No Known Allergies Review of Systems: - General: Feels well. - Skin: No other skin concerns. Examination: - Constitutional: Patient was alert, well-appearing and in no noticeable distress. - Skin: A focused examination of the face was performed. Diagnosis/Skin findings/Assessment/Plan: 1. Favor hormonal acne vs perioral dermatitis - Clear on exam today. - Discontinue doxycycline. Patient requests 3 week supply in case she flares while in [place]. - Rx: Spironolactone 100mg - Take 1.5 tablets daily for a total dosage of 150mg. Discussed possibleside effects, and occasional need for blood work, especially potassium levels, depending on dose. - Rx: Tretinoin 0.025% cream - Apply every 3rd night mixed with a gentle moisturizer, increasing tonightly as tolerated. - Continue Kaylan OCP RTC: 1 year for acne follow up, sooner if needed. Routed for scheduling. Note initiated by Jazmyne Umanzor LPN. I, Radha Rosas, have performed the documentation for this encounter in the presence of and acting as a scribe for Deanna Tamayo MD. I performed the services which were documented by the scribe, and I agree with the accuracy of the documentation in this encounter. Jazmyne Umanzor LPN Reviewed and signed by: Deanna Tamayo MD Resident in Dermatology [facility] Patient seen and evaluated with staff injection molding supervisor: Hayley Chacon MD Section of Dermatology [facility] * Hayley Chacon MD - 10/18/2018 8:30 AM EST I directly supervised Dr. Deanna Tamayo during this office visit. Dr. Tamayo presented the historyand physical exam to me. I then saw and examined this patient with Dr. Tamayo. We reviewed the history and pertinent details and I confirmed the physical findings. I agree with the details of the history and physical exam as documented in Dr. Tamayos note. Hayley Chacon MD Staff Physician documented in this encounter Plan of Treatment Not on file documented as of this encounter Visit Diagnoses Diagnosis Acne, unspecified acne type documented in this encounter Care Teams Computer Programmer Chief Relationship Specialty Start Date [place] [address] PCP - General Family Medicine 07/25/18 documented as of this encounter
--- OUTSIDE RECORDS SUMMARY | 2024-11-09 15:43 | XMS_ITS | Encounter Summary ---
Author Organization [facility] Address [address] [place] [address] Care Team Providers Care Upper Doubler Name Role Phone Terri Holman NP Primary Care Provider [phone] Encounter Details Date Type Department Care Team (Late st Contact Info) Description 12/09/2020 Results Only Imaging [facility] Radiology Results [address] [place], [place] [address] Michelle Quiroga, PA [address] [place] [address] Social History Tobacco Use Types [...] Procedure Name Priority Date/Time Associated Diagnosis Comments MA BREAST DIAGNOSTIC UNILATERAL SLOANE 12/09/2020 10:48 EST US BREAST LIMITED UNILATERAL 12/09/2020 10:48 EST documented in this encounter Results * MA BREAST DIAGNOSTIC UNILATERAL SLOANE (12/09/2020 10:48 EST) Anatomical Region Laterality Modality Breast Mammography 12/09/2020 10:4 7 EST Narrative 12/09/2020 10:48 EST ? EXAM: MAMMOGRAM/MAMMO DX CALL BACK UNI W/ EX. D/ (0938) ? CLINICAL INFORMATION: ? RIGHT BREASTCB, SUSPICIOUS AREA SEEN ON INITIAL ? MAMMO DX CALL BACK UNI W/SLOANE ? UNILAT BREAST CALL BACK LTD ? SIGNS AND SYMPTOMS/COMMENTS: ??RIGHT BREAST CB, SUSPICIOUS AREA SEEN ? ON INITIAL. POSSIBLE ASYMMETRIES ON BASELINE SCREENING MAMMOGRAPHY. ? COMPARISONS: BASELINE MAMMOGRAPHY - 12/03/2020. ? FINDINGS: ? RIGHT BREAST MAMMOGRAPHY: 2-D and 3-D ML views, as well as spot ? compression 3-D CC and MLO views, were obtained. CAD technology was ? utilized. ? The breast tissue is of heterogeneous density, which may obscure ? small masses. Possible asymmetries in the posterior central and ? posterior inner breast on recent baseline screening mammography do ? not persist on today's additional views. ? RIGHT BREAST ULTRASOUND: Targeted ultrasound of the deep central and ? inner half of the right breast was performed. ? At 3 o'clock, 5 cm out, an oval 3-mm simple cyst is incidentally ? noted. No sonographic abnormality is identified in the scanned ? portion of the breast. ? RIGHT BREAST IMPRESSION: BI-RADS Category 2: Benign. ? Possible asymmetries on baseline screening mammography do not persist ? on today's additional views. No sonographic abnormality identified. ? FINAL ASSESSMENT: ??DIAGNOSTIC RIGHT BREAST MAMMOGRAM/ULTRASOUND - ? BI-RADS Category 2 - Benign findings. ? RECOMMENDATION: Resume annual mammographic screening with next exam ? to be scheduled for November 2021. ? These findings and recommendations were discussed with the patient by ? the finance clerk shortly after completion of the examination. ? These results will be communicated to your patient via a lay letter ? PAGE 1 ? Signed Report ? (CONTINUED) ? from Radiology. ??If any additional imaging is needed we will contact ? your patient directly. ? REPORT SIGNED IN OTHER VENDOR SYSTEM 12/09/2020 ?Reported By: Alvin Jalloh MD ? CC: ? Transcribed Date/Time: 12/09/2020 (1048) ? Amusement Ride Operator: ? Printed Date/Time: 12/09/2020 (1127) ? PAGE 2 ? Signed Report ? Procedure Note Alvin Jalloh MD - 12/09/2020 EXAM: MAMMOGRAM/MAMMO DX CALL BACK UNI W/ EX. D/ (0938) CLINICAL INFORMATION: RIGHT BREASTCB, SUSPICIOUS AREA SEEN ON INITIAL MAMMO DX CALL BACK UNI W/SLOANE UNILAT BREAST CALL BACK LTD SIGNS AND SYMPTOMS/COMMENTS: RIGHT BREAST CB, SUSPICIOUS AREA SEEN ON INITIAL. POSSIBLE ASYMMETRIES ON BASELINE SCREENING MAMMOGRAPHY. COMPARISONS: BASELINE MAMMOGRAPHY - 12/03/2020. FINDINGS: RIGHT BREAST MAMMOGRAPHY: 2-D and 3-D ML views, as well as spot compression 3-D CC and MLO views, were obtained. CAD technology was utilized. The breast tissue is of heterogeneous density, which may obscure small masses. Possible asymmetries in the posterior central and posterior inner breast on recent baseline screening mammography do not persist on today's additional views. RIGHT BREAST ULTRASOUND: Targeted ultrasound of the deep centraland inner half of the right breast was performed. At 3 o'clock, 5 cm out, an oval 3-mm simple cyst is incidentally noted. No sonographic abnormality is identified in the scanned portion of the breast. RIGHT BREAST IMPRESSION: BI-RADS Category 2: Benign. Possible asymmetries on baseline screening mammography do notpersist on today's additional views. No sonographic abnormality identified. FINAL ASSESSMENT: DIAGNOSTIC RIGHT BREAST MAMMOGRAM/ULTRASOUND - BI-RADS Category 2 - Benign findings. RECOMMENDATION: Resume annual mammographic screening with next exam to be scheduled for November 2021. These findings and recommendations were discussed with the patientby the finance clerk shortly after completion of the examination. These results will be communicated to your patient via a lay letter PAGE 1 Signed Report (CONTINUED) from Radiology. If any additional imaging is needed we willcontact your patient directly. REPORT SIGNED IN OTHER VENDOR SYSTEM 12/09/2020 Reported By: Alvin Jalloh MD CC: Transcribed Date/Time: 12/09/2020 (1048) Amusement Ride Operator: Printed Date/Time: 12/09/2020 (6066) PAGE 2 Signed Report us Michelle VIGIL IMElliott MAMMOGRAPHY ORDERABLES Final Result * US BREAST LIMITED UNILATERAL (12/09/2020 10:48 EST) Anatomical Region Laterality Modality Breast Other 12/09/2020 10:4 7 EST Narrative 12/09/2020 10:48 EST ? EXAM: ULTRASOUND/UNILAT BREAST CALL BACK ??EX. D/ (1012) ? CLINICAL INFORMATION: ? RIGHT BREAST CB, CYSTIC VS SOLID ? MAMMO DX CALL BACK UNI W/SLOANE ? UNILAT BREAST CALL BACK LTD ? SIGNS AND SYMPTOMS/COMMENTS: ??RIGHT BREAST CB, SUSPICIOUS AREA SEEN ? ON INITIAL. POSSIBLE ASYMMETRIES ON BASELINE SCREENING MAMMOGRAPHY. ? COMPARISONS: BASELINE MAMMOGRAPHY - 12/03/2020. ? FINDINGS: ? RIGHT BREAST MAMMOGRAPHY: 2-D and 3-D ML views, as well as spot ? compression 3-D CC and MLO views, were obtained. CAD technology was ? utilized. ? The breast tissue is of heterogeneous density, which may obscure ? small masses. Possible asymmetries in the posterior central and ? posterior inner breast on recent baseline screening mammography do ? not persist on today's additional views. ? RIGHT BREAST ULTRASOUND: Targeted ultrasound of the deep central and ? inner half of the right breast was performed. ? At 3 o'clock, 5 cm out, an oval 3-mm simple cyst is incidentally ? noted. No sonographic abnormality is identified in the scanned ? portion of the breast. ? RIGHT BREAST IMPRESSION: BI-RADS Category 2: Benign. ? Possible asymmetries on baseline screening mammography do not persist ? on today's additional views. No sonographic abnormality identified. ? FINAL ASSESSMENT: ??DIAGNOSTIC RIGHT BREAST MAMMOGRAM/ULTRASOUND - ? BI-RADS Category 2 - Benign findings. ? RECOMMENDATION: Resume annual mammographic screening with next exam ? to be scheduled for November 2021. ? These findings and recommendations were discussed with the patient by ? the finance clerk shortly after completion of the examination. ? These results will be communicated to your patient via a lay letter ? PAGE 1 ? Signed Report ? (CONTINUED) ? from Radiology. ??If any additional imaging is needed we will contact ? your patient directly. ? REPORT SIGNED IN OTHER VENDOR SYSTEM 12/09/2020 ?Reported By: Alvin Jalloh MD ? CC: ? Transcribed Date/Time: 12/09/2020 (1048) ? Amusement Ride Operator: ? Printed Date/Time: 12/09/2020 (1127) ? PAGE 2 ? Signed Report ? Procedure Note Alvin Jalloh MD - 12/09/2020 EXAM: ULTRASOUND/UNILAT BREAST CALL BACK EX. D/ (1012) CLINICAL INFORMATION: RIGHT BREAST CB, CYSTIC VS SOLID MAMMO DX CALL BACK UNI W/SLOANE UNILAT BREAST CALL BACK LTD SIGNS AND SYMPTOMS/COMMENTS: RIGHT BREAST CB, SUSPICIOUS AREA SEEN ON INITIAL. POSSIBLE ASYMMETRIES ON BASELINE SCREENING MAMMOGRAPHY. COMPARISONS: BASELINE MAMMOGRAPHY - 12/03/2020. FINDINGS: RIGHT BREAST MAMMOGRAPHY: 2-D and 3-D ML views, as well as spot compression 3-D CC and MLO views, were obtained. CAD technology was utilized. The breast tissue is of heterogeneous density, which may obscure small masses. Possible asymmetries in the posterior central and posterior inner breast on recent baseline screening mammography do not persist on today's additional views. RIGHT BREAST ULTRASOUND: Targeted ultrasound of the deep centraland inner half of the right breast was performed. At 3 o'clock, 5 cm out, an oval 3-mm simple cyst is incidentally noted. No sonographic abnormality is identified in the scanned portion of the breast. RIGHT BREAST IMPRESSION: BI-RADS Category 2: Benign. Possible asymmetries on baseline screening mammography do notpersist on today's additional views. No sonographic abnormality identified. FINAL ASSESSMENT: DIAGNOSTIC RIGHT BREAST MAMMOGRAM/ULTRASOUND - BI-RADS Category 2 - Benign findings. RECOMMENDATION: Resume annual mammographic screening with next exam to be scheduled for November 2021. These findings and recommendations were discussed with the patientby the finance clerk shortly after completion of the examination. These results will be communicated to your patient via a lay letter PAGE 1 Signed Report (CONTINUED) from Radiology. If any additional imaging is needed we willcontact your patient directly. REPORT SIGNED IN OTHER VENDOR SYSTEM 12/09/2020 Reported By: Alvin Jalloh MD CC: Transcribed Date/Time: 12/09/2020 (1048) Amusement Ride Operator: Printed Date/Time: 12/09/2020 (7569) PAGE 2 Signed Report us Michelle VIGIL IMG US ORDERABLES Final Result documented in this encounter Visit Diagnoses Not on filedocumented in this encounter Care Teams Upper Doubler Relationship Specialty Start Date End Date Terri Holman NP [address] [place] [phone] PCP - General 10/17/19 documented as of this encounter
--- OUTSIDE RECORDS SUMMARY | 2024-11-09 15:43 | XMS_ITS | Encounter Summary ---
Author Organization [facility] Address [address] [place] [address] Care Team Providers Care Airframe Technical Officer Name Role Phone Terri Holman NP Primary Care Provider [phone] Encounter Details Date Type Department Care Team (Late st Contact Info) Description 12/04/2020 Results Only Imaging [facility] Radiology Results [address] [place], [place] [address] Michelle Quiroga, PA [address] [place] [address] Social History Tobacco Use Types [...] Priority Date/Time Associated Diagnosis Comments MA BREAST SCREENING SLOANE BILATERAL 12/04/2020 11:01 EST documented in this encounter Results * MA BREAST SCREENING SLOANE BILATERAL (12/04/2020 11:01 EST) Anatomical Region Laterality Modality Breast Bilateral Mammography 12/04/2020 11:0 0 EST Narrative 12/04/2020 11:01 EST ? EXAM: MAMMOGRAM/MAMMO BILATERAL SCREEN W ??EX. D/ (0947) ? CLINICAL INFORMATION: ? Z12.31 BASELINE SCREENING ? FAMILY HISTORY OF BREAST CANCER ??Z80.3 ? INDICATION: ??Z12.31 BASELINE SCREENING, FAMILY HISTORY OF BREAST ? CANCER ??Z80.3 ?? FAMILY H/O BREAST CA, SCREENING - BASELINE ? This is a baseline examination. ? BILATERAL BREASTS: ? Technique: Full field digital whole breast 2D (C-view) and 3D CC and ? MLO views of both breasts were obtained. CAD technology was utilized. ? Findings: The breast tissue is of heterogeneous density, which may ? obscure small masses. There are small asymmetries in the posterior ? right breast for which further imaging assessment is recommended. ? There is no suspicious mass, architectural distortion or ? microcalcification in the contralateral left breast. ? FINAL ASSESSMENT RIGHT BREAST: BI-RADS Category 0: Incomplete -- Need ? Additional Imaging Evaluation.. ? FINAL ASSESSMENT LEFT BREAST: BI-RADS Category 1: Negative. ? These results will be communicated to your patient via a lay letter ? from Radiology. If any additional imaging is needed we will contact ? your patient directly. ? REPORT SIGNED IN OTHER VENDOR SYSTEM 12/04/2020 ?Reported By: Lam Ward MD ? CC: ? Transcribed Date/Time: 12/04/2020 (1101) ? Commodity Analyst: ? Printed Date/Time: 12/04/2020 (9893) ? PAGE 1 ? Signed Report ? Procedure Note Lam Ward MD - 12/04/2020 EXAM: MAMMOGRAM/MAMMO BILATERAL SCREEN W EX. D/ (0947) CLINICAL INFORMATION: Z12.31 BASELINE SCREENING FAMILY HISTORY OF BREAST CANCER Z80.3 INDICATION: Z12.31 BASELINE SCREENING, FAMILY HISTORY OF BREAST CANCER Z80.3 FAMILY H/O BREAST CA, SCREENING - BASELINE This is a baseline examination. BILATERAL BREASTS: Technique: Full field digital whole breast 2D (C-view) and 3D CCand MLO views of both breasts were obtained. CAD technology wasutilized. Findings: The breast tissue is of heterogeneous density, which may obscure small masses. There are small asymmetries in the posterior right breast for which further imaging assessment is recommended. There is no suspicious mass, architectural distortion or microcalcification in the contralateral left breast. FINAL ASSESSMENT RIGHT BREAST: BI-RADS Category 0: Incomplete --Need Additional Imaging Evaluation.. FINAL ASSESSMENT LEFT BREAST: BI-RADS Category 1: Negative. These results will be communicated to your patient via a lay letter from Radiology. If any additional imaging is needed we will contact your patient directly. REPORT SIGNED IN OTHER VENDOR SYSTEM 12/04/2020 Reported By: Lam Ward MD CC: Transcribed Date/Time: 12/04/2020 (1101) Commodity Analyst: Printed Date/Time: 12/04/2020 (0477) PAGE 1 Signed Report us Michelle VIGIL IMG MAMMOGRAPHY ORDERABLES Final Result documented in this encounter Visit Diagnoses Not on filedocumented in this encounter Care Teams Airframe Technical Officer Relationship Specialty Start Date End Date Terri Holman NP [address] [place] [phone] PCP - General 10/17/19 documented as of this encounter
--- OUTSIDE RECORDS SUMMARY | 2024-11-09 15:43 | XMS_ITS | Encounter Summary ---
Author Organization [facility] Address [address] [place] [address] Care Team Providers Care Shade Maker Name Role Phone Unknown, Provider Primary Care Provider Unava ilable Encounter Details Date Type Department Care Team (Late st Contact Info) Description 09/20/2018 Historical Results Only [facility] Lab - Main [address] [address] Terri Holman, THREE KNIFE TRIMMER [address] [place] [phone] Social History Tobacco Use Types Packs/Day [...] Procedure Name Priority Date/Time Associated Diagnosis Comments [place] PAN[place] [facility] [place]ine 09/20/2018 14:14 EST documented in this encounter Results * (ABNORMAL) LIPID PANEL P[place] - [facility] (09/20/2018 14:14 EST) Triglyceride 171(H) 0.00 - 150.00 MG/DL 09/20/2018 14:15 [facility] Cholesterol 200 0.00 - 200.00 MG/DL 09/20/2018 14:15 [facility] HDL 45 40.00 - 60.00 MG/DL 09/20/2018 14:15 EST [facility] 09/20/2018 14:1 4 EST 09/20/2018 14:14 EST us Terri Holman THREE KNIFE TRIMMER CHEMISTRY & BLOOD GAS ORDERABLES Final Result [facility] documented in this encounter Visit Diagnoses Not on filedocumented in this encounter Care Teams Shade Maker Relationship Specialty Start Date End Date Unknown, Provider, PCP - General 12/15/10 10/16/19 documented as of this encounter
--- OUTSIDE RECORDS SUMMARY | 2024-11-09 15:43 | XMS_ITS | Encounter Summary ---
Author Organization [facility] Address [address] [place] [address] Care Team Providers Care Injection Molder Name Role Phone Manda Terri MARTÍNEZ Primary Care Provider [phone] Encounter Details Date Type Department Care Team (Late st Contact Info) Description 10/13/2024 Lab Requisition [facility] Pathology & Laboratory Medicine - [address] [address] Outr Resulting Lab, Provider Social History Tobacco Use Types Packs/Day Years [...] AMPLIFIED NUCLEIC ACID Routine 10/13/2024 18:04 EST documented in this encounter Results * CHLAMYDIA/N. GONORRHOEAE AMPLIFIED NUCLEIC ACID (10/13/2024 18:04 EST) Neisseria gonorrhoeae Result Negative Negative 10/15/2024 11:[address] [facility] Chlamydia trachomatis Result Negative Negative 10/15/2024 11:[address] [facility] Urine URINE / Unknown 10/13/2024 1 8:04 EST 10/14/2024 17:[address] [facility] - 10/15/2024 11:36 EST A first catch urine specimen is acceptable for detection of Gonorrhea and Chlamydia, but might detect up to 10% fewer infections when compared with vaginal swab samples. us Provider Outr Resulting Lab MICROBIOLOGY - GENER AL ORDERABLES Final Result Performing Organization Address City/State/[facility] Co de Phone Number [facility] [address] [place] [phone] documented in this encounter Visit Diagnoses Not on filedocumented in this encounter Care Teams Injection Molder Relationship Specialty Start Date End Date Terri Holman NP [address] [place] [phone] PCP - General 10/17/19 documented as of this encounter
--- OUTSIDE RECORDS SUMMARY | 2024-11-09 15:43 | XMS_ITS | Encounter Summary ---
Author Organization [facility] Address [address] [place] [address] Care Team Providers Care Flat Bed Knitter Name Role Phone Unknown, Provider Primary Care Provider Terri Lei NP Primary Care Provider [phone] Encounter Details Date Type Department Care Team (Late st Contact Info) Description 02/04/2019 Historical Results Only [facility] Lab - Main [address] [address] Michelle Quiroga, PA [address] [place] [phone] Social History Tobacco Use Types Packs/Day [...] Associated Diagnosis Comments BACTERIAL CULTURE, URINE Routine 02/04/2019 10:40 EDT documented in this encounter Results * BACTERIAL CULTURE, URINE (02/04/2019 10:40 EDT) ESCHERIACHIA COLI [facility] ESCHERICHIA COLI 02/06/2019 7:[address] [facility] CitrateConcentration >100,000 CFU/ML 01/2019 7:31 [facility] 02/04/2019 10:4 0 EDT 02/04/2019 13:11 EDT Comment:VOID Narrative [facility] - 02/06/2019 7:31 EDT Does PT Have a Latex Allergy? NO Organism Antibiotic Method Susceptibility Escherichia coli Ampicillin Sulbactam GRAM NEGAT KARLIE SUSCEPTIBILITY - [facility] >=32: Resistant Escherichia coli Ampicillin GRAM NEGATIVE SUSCEPTIBILITY - [...] <=1: Susceptible Comment:See Reason(s) for St [facility] Michelle VIGIL MICROBIOLOGY - GENERAL ORDERABLE S Edited Result - Final [facility] documented in this encounter Visit Diagnoses Not on filedocumented in this encounter Care Teams Flat Bed Knitter Relationship Specialty Start Date End Date Unknown, Provider, PCP - General 12/15/10 10/16/19 Terri Holman NP [address] [place] [phone] PCP - General 10/17/19 documented as of this encounter
--- OUTSIDE RECORDS SUMMARY | 2024-11-09 15:43 | XMS_ITS | Encounter Summary ---
Author Organization [facility] Address [address] [place] [address] Care Team Providers Care Flight Crew Scheduler Name Role Phone Unknown, Provider Primary Care Provider Unachicho ilable Encounter Details Date Type Department Care Team (Late st Contact Info) Description 09/18/[address] [facility] - Main [address] [id number] Michelle Quiroga, YARITZA [address] [place] [phone] Social History Tobacco Use Types Packs/Day [...] Procedure Name Priority Date/Time Associated Diagnosis Comments [place]IC [place]ABOLIC PANEL [place] [facility] [place] 09/18/2019 12:19 EST documented in this encounter Results * BASIC METABOLIC PANEL PO[place] [facility] [place]09/18/2019 12:19 EST) BUN - [facility] [place] 11 7.00 - 20.00 MG/DL 09/18/2019 12:20 [facility] CALCIUM - [facility] [place] 9.8 8.50 - 10.50 MG/DL 09/18/2019 12:20 [facility] Chloride 106 98.00 - 107.00 MMOL/L 09/18/2019 12:20 [facility] CO2 Total 22 22.00 - 30.00 MMOL/L 09/18/2019 12:20 [facility] CREATININE 1.1 0.70 - 1.50 MG/DL 09/18/2019 12:20 [facility] Anion Gap 9 7 - 17 MMOL/L 09/18/2019 12:20 [facility] GLUCOSE - [facility] [place] 76 70.00 - 100.00 MG/DL 09/18/2019 12:20 [facility] Potassium 4.3 3.50 - 5.10 MMOL/L 09/18/2019 12:20 [facility] Sodium 137 137.00 - 145.00 MMOL/L 09/18/2019 12:20 [facility] 09/18/2019 12:1 9 EST 09/18/2019 12:19 EST Narrative [facility] - 09/18/2019 12:20 EST CHRONIC RENAL IMPAIRMENT IS DEFINED GFR <60 MULTIPLY RESULT BY 1.210 FOR PATIENTS EGFR CALCULATED USING THE IDMS-TRACEABLE MDRD STUDY us Michelle VIGIL POINT OF CARE TEST ORDERABLES Fi nal Result [facility] documented in this encounter Visit Diagnoses Not on filedocumented in this encounter Care Teams Flight Crew Scheduler Relationship Specialty Start Date End Date Unknown, Provider, PCP - General 12/15/10 10/16/19 documented as of this encounter
--- OUTSIDE RECORDS SUMMARY | 2024-11-09 15:43 | XMS_ITS | Encounter Summary ---
Author Organization [facility] Address [facility] [place] [address] Care Team Providers Care Net Developer Contract Name Role Phone Nii Dill MD Primary Care Provider Reason for Visit * Reason Comments Follow-up Encounter Details Date Type Department Care Team (Late st Contact Info) Description 11/22/2019 3:00 PM EST Office Visit Dermatology at [facility] [address] [place] [address] Max Leiva MD [facility] [address] [place] [address] Other acne Social History Tobacco Use Types Packs/Day Years Used Date Smoking Tobacco: Some Days Cigars Smokeless Tobacco: Never Sex and Gender Information Value Date Recorded Sex Assigned at Not on file Gender Identity Not on file Sexual Orientation Not on file documented as of this encounter Patient Instructions * Patient Instructions* Willy Reece CCMA - 11/22/2019 3:00 PM EST Recommend The Ordinary brand azelaic acid suspension 10% bid Please start Tretinoin 0.025% .Begin by applying thin pea sized amount to the face once every threenights after washing and thoroughly drying face, slowly increase to nightly use as tolerated with caution to avoid mouth and eyes. If irritation becomes too intense, instructed to decrease frequency to 1-2x a week and once again increase with goal of nightly use as tolerated. - you will experience some mild to moderate irritation in the beginning, this is to be expected. Continue with the therapy with typical results being seen at 8- 12 weeks. If needed you can also mix the pea-sized amount tretinoin cream with a nightly facial moisturizer - please use the medication at night, as sunlight can de-activate the medication - The medication is also oxidized by benzoyl peroxide which is discouraged when using in conjunction of retinoid at the same time, please use the benzoyl peroxide wash in the mornings documented in this encounter Progress Notes * Max Leiva - 11/22/2019 3:00 PM EST Images from the original note were not included. DERMATOLOGY - ESTABLISHED PATIENT FOLLOW-UP Date of service: 11/22/2019 Leia Carroll : 1990, 29 y.o. Chief Complaint: Chief Complaint Patient presents with ??? Follow-up HPI: Leia Carroll is a 29 y.o. female last seen by Dr. Tamayo on 10/18/2018. Ms. Carroll returns today for follow up on acacia oral dermatitis, pt states condition is typically manageable using doxy for flares. The past week and a half has been the worst it's been since she was last seen. Using doxy currently which seems to be helping but she's wondering what else she can doto keep it better under control when she flares. Relevant Skin History: -??Eczema ?? Family History: Eczema: Mother ?? 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 cetirizine (ZYRTEC) 10 mg Tablet Take 10 mg by mouth daily. ??? hydrOXYzine (ATARAX) 10 mg Tablet Take 10 mg by mouth daily as needed (sleep aid). ??? JOYCE, 28, 3-0.02 mg Tablet ??? valACYclovir (VALTREX) 1 gram Tablet Take 1,000 mg by mouth daily. ??? spironolactone (ALDACTONE) 100 mg Tablet Take 1.5 tablets by mouth daily. 90 tablet 3 ??? Doxycycline Hyclate (PERIOSTAT) 100 mg Tablet, Delayed Release (E.C.) Take 1 tablet by mouth every other day. 15 tablet 0 ??? ergocalciferol (VITAMIN D) 50,000 unit capsule Take 1 (ONE)Capsule(s) (30171 UNIT = 1 Capsule(s)) QWEEK for 8 Weeks.Take 1 (ONE)Capsule(s) (38734 UNIT = 1 Capsule(s)) Q 2WEEKS for 1 Year. ??? tretinoin (RETIN-A) 0.025 % Cream Apply a pea sized amount to entire face every third night, work up to nightly (Patient not taking: Reported on 11/22/2019) 45 g 3 ??? sulfacetamide (KLARON) 10 % Suspension Apply to face twice daily. (Patient not taking: Reportedon 10/18/2018) 118 mL 3 No current facility-administered medications for this visit. Allergies: Allergies Allergen Reactions ??? Nickel Rash Review of Systems: - General: Feels well. - Skin: No other skin concerns. Examination: - Constitutional: Patient was alert, well-appearing and in no noticeable distress. - Skin: Skin examination of the face, ears, neck, was normal with the exception of the findings listed below. Genitalia not examined. - JEEVAN Cole was present and on standby during my examination. Diagnosis/Skin findings/Assessment/Plan: 1. Mild Acne- few inflammatory papules and hyperpigmented patches of PIH - discussed retinoid treatment - discussed laser treatment - discussed azelaic acid - Recommend The Ordinary brand azelaic acid suspension 10% bid - Rx: - please start Tretinoin 0.025% .Begin by applying thin pea sized amount to the face once every three nights after washing and thoroughly drying face, slowly increase to nightly use as tolerated with caution to avoid mouth and eyes. If irritation becomes too intense, instructed to decrease frequency to 1- 2x a week and once again increase with goal of nightly use as tolerated. - you will experience some mild to moderate irritation in the beginning, this is to be expected. Continue with the therapy with typical results being seen at 8- 12 weeks. If needed you can also mix the pea-sized amount tretinoin cream with a nightly facial moisturizer - please use the medication at night, as sunlight can de-activate the medication - The medication is also oxidized by benzoyl peroxide which is discouraged when using in conjunction of retinoid at the same time, please use the benzoyl peroxide wash in the mornings RTC: In 3 months for cosmetic consult if skin does not improve The following photos were obtained with patient consent: Note initiated by JEEVAN Cole. I, JEEVAN Cole, have performed the documentation for this encounter in the presence of and acting as a scribe for Max Leiva MD. I performed the services which were documented by the scribe, and I agree with the accuracy of the documentation in this encounter. Max Leiva MD Reviewed and signed by: Max Leiva MD Resident in Dermatology [facility] Patient seen with staff freelance operator: Dominique Nation MD Section of Dermatology [facility] * Dominique Nation MD - 11/22/2019 3:00 PM EST I directly supervised Dr. Leiva during this office visit. Dr. Leiva presented the history and physical exam to me. I then saw and examined this patient with Dr. Leiva. We reviewed the history and pertinent details and I confirmed the physical findings. I agree with the details of the history and physical exam as documented in Dr. Leiva' note. Dominique Nation MD Staff Physician documented in this encounter Plan of Treatment Not on file documented as of this encounter Visit Diagnoses Diagnosis Other acne documented in this encounter Care Teams Net Developer Contract Relationship Specialty Start Date End Date Nii Dill MD [address] [place] [id number] PCP - General Family Medicine 07/25/18 documented as of this encounter
--- OUTSIDE RECORDS SUMMARY | 2024-11-09 15:43 | XMS_ITS | Encounter Summary ---
Author Organization [facility] Address [address] [place] [address] Care Team Providers Care Carriage Rider Name Role Phone Unknown, Provider Primary Care Provider Unava ilable Encounter Details Date Type Department Care Team (Late st Contact Info) Description 04/29/[address] [facility] - Main [address] [phone] Terri Holman, MANAGER OF SUSTAINABILITY [address] [place] [phone] Social History Tobacco Use Types Packs/Day [...] Date/Time Associated Diagnosis Comments POCT URINALYSIS Routine 04/29/2019 14:32 EDT documented in this encounter Results * POCT URINALYSIS (04/29/2019 14:32 EDT) URINE APPEARANCE - [facility] [place] Cloudy CLEAR 04/29/2019 14:33 [facility] URINE BILIRUBIN - DIPSTICK - [facility] [place] Negative NEGATIVE 04/29/2019 14:33 T [facility] URINE BLOOD - [facility] [place] Negative NEGATIVE 04/29/2019 14:33 [facility] URINE COLOR - [facility] [place] Yellow YELLOW 04/29/2019 14:33 [facility] Comment:INTERPRET RESULTS WI TH CAUTION. COLOR MAY INTERFERE WITH TEST RESULTS URINE GLUCOSE - DIPSTICK - [facility] [place] Trace NEGATIVE 04/29/2019 14:33 [facility] URINE KETONE - [facility] [place] Negative NEGATIVE 04/29/2019 14:33 [facility] URINE LEUK ESTERASE - [facility] [place] Negative NEGATIVE 04/29/2019 14:33 [facility] URINE NITRITE - [place] - [facility] [place] Positive NEGATIVE 04/29/2019 14:33 [facility] URINE PH - [facility] [place] 5.5 () 9 14:33 [facility] URINE PROTEIN - [place] - [facility] [place] Negative NEGATIVE 04/29/2019 14:33 [facility] URINE SPECIFIC GRAVITY - [facility] 1.025 () 04/29/2019 14:33 [facility] URINE UROBILINOGEN - DIP[place]ICK - [facility] [place] 0.2 0.2 - 1.0 EU/DL 04/29/2019 14:33 [facility] 04/29/2019 14:3 2 EDT 04/29/2019 14:32 EDT us Terri Holman NP POINT OF CARE TEST ORDERABLES Fi nal Result [facility] documented in this encounter Visit Diagnoses Not on filedocumented in this encounter Care Teams Carriage Rider Relationship Specialty Start Date End Date Unknown, Provider, PCP - General 12/15/10 10/16/19 documented as of this encounter
--- OUTSIDE RECORDS SUMMARY | 2024-11-09 15:43 | XMS_ITS | Encounter Summary ---
Author Organization [facility] Address [address] [place] [address] Care Team Providers Care Knit Goods Washer Name Role Phone Manda Terri MARTÍNEZ Primary Care Provider [phone] Encounter Details Date Type Department Care Team (Late st Contact Info) Description 12/04/2019 Results Only [facility] [phone] Michelle Quiroga PA [address] [place] [phone] Social History Tobacco Use Types Packs/Day [...] Procedure Name Priority Date/Time Associated Diagnosis Comments CHERYLHN INFLUENZA A AND B, RSV PCR Routine 12/04/2019 14:47 EST documented in this encounter Results * INPATIENT/OUTPATIENT INFLUENZA, RSV PCR (12/04/2019 14:47 EST) INFLUENZA A PCR - [facility] [place] Negative NEGATIVE 12/04/2019 14:47 EST [facility] INFLUENZA B PCR - [facility] [place] Negative NEGATIVE 12/04/2019 14:47 EST [facility] RSV PCR - [facility] [place] Negative NEGATIVE 12/04/2019 14:47 EST [facility] 12/04/2019 14:4 7 EST 12/04/2019 14:47 EST us Michelle VIGIL MICROBIOLOGY - GENERAL ORDERABLE S Final Result [facility] documented in this encounter Visit Diagnoses Not on filedocumented in this encounter Care Teams Knit Goods Washer Relationship Specialty Start Date End Date Terri Holman NP [address] [place] [phone] PCP - General 10/17/19 documented as of this encounter
--- OUTSIDE RECORDS SUMMARY | 2024-11-09 15:43 | XMS_ITS | Encounter Summary ---
Author Organization [facility] Address [address] [place] [address] Care Team Providers Care Oral And Maxillofacial Surgery Resident Name Role Phone Unknown, Provider Primary Care Provider Unava ilable Encounter Details Date Type Department Care Team (Late st Contact Info) Description 09/18/2019 Results Only [facility] - Main [address] [phone] Michelle Quiroga, YARITZA [address] [place] [phone] Social History Tobacco Use Types Packs/Day [...] Procedure Name Priority Date/Time Associated Diagnosis Comments VITAMIN D 25 POC - [facility] [place] Routine 09/18/2019 12:19 EST documented in this encounter Results * VITAMIN D 25 POC - [facility] [place] (09/18/2019 12:19 EST) VIT D, 25 HYDROXY - [facility] 52 30 - 100 NG/ML 09/18/2019 12:20 EST [facility] 09/18/2019 12:1 9 EST 09/18/2019 12:19 EST Narrative [facility] - 09/18/2019 12:20 EST CHRONIC RENAL IMPAIRMENT IS DEFINED GFR <60 MULTIPLY RESULT BY 1.210 FOR PATIENTS EGFR CALCULATED USING THE IDMS-TRACEABLE MDRD STUDY us Michelle VIGIL CHEMISTRY & BLOOD GAS ORDERABLES Final Result [facility] documented in this encounter Visit Diagnoses Not on filedocumented in this encounter Care Teams Oral And Maxillofacial Surgery Resident Relationship Specialty Start Date End Date Unknown, Provider, PCP - General 12/15/10 10/16/19 documented as of this encounter
--- OUTSIDE RECORDS SUMMARY | 2024-11-09 15:43 | XMS_ITS | Encounter Summary ---
Author Organization [facility] Address [address] [place] [address] Care Team Providers Care Buildings And Grounds Coordinator Name Role Phone Terri Holman NP Primary Care Provider [phone] Encounter Details Date Type Department Care Team (Late st Contact Info) Description 03/09/2021 Results Only [facility] [phone] Michelle Quiroga PA [address] [place] [phone] Social History Tobacco Use Types [...] Date/Time Associated Diagnosis Comments POCT URINALYSIS Routine 03/09/2021 17:23 EDT documented in this encounter Results * POCT URINALYSIS (03/09/2021 17:23 EDT) [place] [facility] [place]AR 03/09/2021 17:24 EDT [facility] URINE BILIRUBIN - [place] [facility] [place] NEGATIVE 03/09/2021 17:24 EDT [facility] URINE BLOOD [place] [facility] [place] NEGATIVE 03/09/2021 17:24 EDT [facility] URINE COLOR - [facility] [place] Yellow YELLOW 03/09/2021 17:24 EDT [facility] URINE GLUCOSE - [place] [facility] [place] NEGATIVE 03/09/2021 17:24 EDT [facility] URINE KETONE - [facility] [place] Negative NEGATIVE 03/09/2021 17:24 EDT [facility] URINE LEUK ESTERASE - [facility] [place] Trace NEGATIVE 03/09/2021 17:24 EDT [facility] URINE NITRITE - [place] [facility] [place] Negative NEGATIVE 03/09/2021 17:24 EDT [facility] URINE PH - [facility] [place] 7.0 () 17:24 EDT [facility] URINE PROTEIN - [place] [facility] [place] 1+ NEGATIVE 03/09/2021 17:24 EDT [facility] URINE SPECIFIC GRAVITY - [facility] [place] 1.025 () 03/09/2021 17:24 T [facility] URINE UROBILINOGEN - [place] [facility] [place] 0.2 0.2 - 1.0 EU/DL 03/09/2021 17:24 EDT [facility] 03/09/2021 17:2 3 EDT 03/09/2021 17:23 EDT us Michelle VIGIL POINT OF CARE TEST ORDERABLES Fi nal Result [facility] [address] [place] [address] documented in this encounter Visit Diagnoses Not on filedocumented in this encounter Care Teams Buildings And Grounds Coordinator Relationship Specialty Start Date End Date Terri Holman NP [address] [place] [phone] PCP - General 10/17/19 documented as of this encounter
--- OUTSIDE RECORDS SUMMARY | 2024-11-09 15:43 | XMS_ITS | Encounter Summary ---
Author Organization [facility] Address [address] [place] [address] Care Team Providers Care Senior It Security Analyst Name Role Phone Unknown, Provider Primary Care Provider Unachicho ilable Encounter Details Date Type Department Care Team (Late st Contact Info) Description 09/18/2019 Results Only [facility] - [facility] [place] Lab - Main [address] [phone] Michelle Quiroga, PA [address] [place] [phone] Social History Tobacco Use Types Packs/Day [...] Procedure Name Priority Date/Time Associated Diagnosis Comments MAGNESIUM POC - [facility] [place] Routine 09/18/2019 12:19 EST documented in this encounter Results * MAGNESIUM POC - CV (09/18/2019 12:19 EST) Magnesium 1.80 1.60 - 2.30 MG/DL 09/18/2019 12:20 EST [facility] 09/18/2019 12:1 9 EST 09/18/2019 12:19 EST Narrative [facility] - 09/18/2019 12:20 EST CHRONIC RENAL IMPAIRMENT IS DEFINED GFR <60 MULTIPLY RESULT BY 1.210 FOR PATIENTS EGFR CALCULATED USING THE IDMS-TRACEABLE MDRD STUDY us Michelle VIGIL CHEMISTRY & BLOOD GAS ORDERABLES Final Result [facility] documented in this encounter Visit Diagnoses Not on filedocumented in this encounter Care Teams Senior It Security Analyst Relationship Specialty Start Date End Date Unknown, Provider, PCP - General 12/15/10 10/16/19 documented as of this encounter
--- OUTSIDE RECORDS SUMMARY | 2024-11-09 15:43 | XMS_ITS | Encounter Summary ---
Author Organization [facility] Address [address] [place] [address] Care Team Providers Care Manager Mission Name Role Phone Terri Holman NP Primary Care Provider [phone] Reason for Referral * Radiology Services (Routine/Next Available) - Authorization Not Required Specialty Diagnoses / Procedures Referred By Arvind trujillo Referred To Contact Diagnoses Encounter for screening mammogram for malignant neoplasm of breast Procedures MA BREAST SCREENING SLOANE BILATERAL Michelle Quiroga PA [address] [place] [address] Phone: tel: fax: [facility] Referral ID Status Reason Start Date Expiration Date Visits Requested Visits Authorized [id number] Authorization Not Required 04/05/2023 1 1 Reason for Visit * Radiology Services (Routine/Next Available) - Authorization Not Required Specialty Diagnoses / Procedures Referred By Arvind trujillo Referred To Contact Diagnoses Encounter for screening mammogram for malignant neoplasm of breast Procedures MA BREAST SCREENING SLOANE BILATERAL Michelle Quiroga PA [address] [place] [address] Phone: tel: fax: [facility] Referral ID Status Reason Start Date Expiration Date Visits Requested Visits Authorized [id number] Authorization Not Required 04/05/2023 1 1 Encounter Details Date Type Department Care Team (Latest Contact Info) Description 04/26/2023 12:41 EDT - 04/26/2023 23:59 EDT Hospital Encounter [facility] [address] [place] [address] Encounter for screening mammogram for malignant neoplasm of breast Discharge Disposition: Home or Self Care Social History Tobacco Use Types Packs/Day Years [...] on file documented as of this encounter Medications at Time of Discharge cetirizine (ZYRTEC) 10 mg tablet Take 10 mg by mouth daily. doxycycline (VIBRA-TABS) 10mg/ml Take 100 mg by mouth 2 times daily as needed. hydrOXYzine (ATARAX) 10 mg tablet Take 10 mg by mouth daily as needed. ibuprofen (MOTRIN) 800 mg tablet Take 800 mg by mouth every 6 hours as needed for Pain. norethindrone (REY-BE) 0.35 mg tablet Take 1 Tab by mouth daily. valACYclovir (VALTREX) 1 gram tablet Take 1,000 mg by mouth daily. documented as of this encounter Discharge Disposition Disposition Code Departure Means Destination Home or Self Care documented in this encounter Plan of Treatment Not on file documented as of this encounter Procedures Procedure Name Priority Date/Time Associated Diagnosis Comments MA BREAST SCREENING SLOANE BILATERAL Routine 04/26/2023 13:06 EDT Encounter for screening mammogram for malignant neoplasm of breast documented in this encounter Results * MA BREAST SCREENING SLOANE BILATERAL (04/26/2023 13:06 EDT) Anatomical Region Laterality Modality Breast Bilateral Mammography 04/28/2023 9:35 EDT Impressions 04/28/2023 9:35 EDT Negative, no evidence of malignancy. RECOMMENDATION: Routine screening mammography is recommended. OVERALL ASSESSMENT: BI-RADS 1: Negative These results will be communicated to your patient via a lay letter from Radiology. If any additional imaging is needed we will contact your patient directly. Narrative 04/28/2023 9:35 EDT MA BREAST SCREENING SLOANE BILATERAL ??04/26/2023 12:50 PM History: Encounter for screening mammogram for malignant neoplasm of breast Comparison: ??Comparison has been made to previous images. Technique: Routine 3D tomosynthesis with synthesized 2D views with CAD Bilateral Breast Composition: The breast tissue is heterogenously dense, which may obscure small masses. Bilateral Breast Findings: ??No significant masses, calcifications or other abnormalities are seen. Procedure Note Gene Deleon MD - 04/28/2023 MA BREAST SCREENING SLOANE BILATERAL 04/26/2023 12:50 PM History: Encounter for screening mammogram for malignant neoplasm ofbreast Comparison: Comparison has been made to previous images. Technique: Routine 3D tomosynthesis with synthesized 2D views with CAD Bilateral Breast Composition: The breast tissue is heterogenously dense,which may obscure small masses. Bilateral Breast Findings: No significant masses, calcifications or otherabnormalities are seen. IMPRESSION Negative, no evidence of malignancy. RECOMMENDATION: Routine screening mammography is recommended. OVERALL ASSESSMENT: BI-RADS 1: Negative These results will be communicated to your patient via a lay letter fromRadiology. If any additional imaging is needed we will contact yourpatient directly. us Michelle VIGIL IMG MAMMOGRAPHY ORDERABLES Final Result documented in this encounter Visit Diagnoses Diagnosis Encounter for screening mammogram for malignant neoplasm of breast Other screening mammogram documented in this encounter Care Teams Manager Mission Relationship Specialty Start Date End Date Terri Holman NP [address] [place] [phone] PCP - General 10/17/19 documented as of this encounter
--- OUTSIDE RECORDS SUMMARY | 2024-11-09 15:43 | XMS_ITS | Encounter Summary ---
Author Organization [facility] Address [address] [place] [address] Care Team Providers Care Refrigeration Repair Supervisor Name Role Phone Manda Terri TANYA Primary Care Provider [phone] Encounter Details Date Type Department Care Team (Late st Contact Info) Description 06/07/2021 Results Only [facility] [phone] Michelle Quiroga PA [address] [place] [address] Social History Tobacco Use Types [...] Comments INFLUENZA, RSV, COVID PCR POCT-CV Routine 06/07/2021 12:53 EDT documented in this encounter Results * INFLUENZA, RSV, COVID PCR POCT-CV (06/07/2021 12:53 EDT) SARS-CoV-2 RT-PCR Not Detected NEGATIVE 06/07/2021 12:54 EDT [facility] Comment:THIS TEST HAS BEEN A UTHORIZED BY FDA UNDER AN EUA FOR USE BY AUTHORIZED LABORATORIES. INFLUENZA A PCR - [facility] Negative NEGATIVE 06/07/2021 12:54 EDT [facility] INFLUENZA B PCR - [facility] Negative NEGATIVE 06/07/2021 12:54 EDT [facility] RSV PCR - [facility] Negative NEGATIVE 06/07/2021 12:54 EDT [facility] 06/07/2021 12:5 3 EDT 06/07/2021 12:53 EDT Narrative [facility] - 06/07/2021 12:54 EDT NEGATIVE RESULTS DO NOT PRECLUDE SARS-COV-2 INFECTION AND SHOULD NOT BE USED THE SOLE BASIS FOR TREATMENT OR OTHER PATIENT MANAGEMENT DECISION. NEGATIVE RESULTS MUST BE COMBINED WITH CLINICAL OBSERVATIONS, PATIENT HISTORY AND EPIDEMIOLOGICAL INFORMATION. us Michelle VIGIL CHEMISTRY & BLOOD GAS ORDERABLES Final Result Performing Organization Address City/State/[facility] Co de Phone Number [facility] [address] [place] [address] documented in this encounter Visit Diagnoses Not on filedocumented in this encounter Care Teams Refrigeration Repair Supervisor Relationship Specialty Start Date End Date Terri Holman NP [address] [place] [phone] PCP - General 10/17/19 documented as of this encounter
--- OUTSIDE RECORDS SUMMARY | 2024-11-09 15:43 | XMS_ITS | Encounter Summary ---
Author Organization [facility] Address [facility] [place] [address] Care Team Providers Care Livestock Showman Name Role Phone Nii Dill MD Primary Care Provider [phone] Reason for Visit * Reason Comments Skin Lesion * Consultation (Routine) - Closed Specialty Diagnoses / Procedures Referred By Arvind trujillo Referred To Contact Dermatology Diagnoses DERMATITIS PERIORAL Michelle Quiroga PA [address] [place] [address] [facility] [address] [place] [address] Referral ID Status Reason Start Date Expiration Date Visits Re quested Visits Authorized [id number] Closed 07/04/2018 07/04/2019 1 1 Encounter Details Date Type Department Care Team (Late st Contact Info) Description 07/25/2018 9:30 AM EDT Office Visit Dermatology at [facility] [address] [place] [address] Deanna Tamayo MD [facility] DR MADONNA [place] [address] Rash Social History Tobacco Use Types Packs/Day Years Used Date Smoking Tobacco: Some Days Cigars Smokeless Tobacco: Never Sex and Gender Information Value Date Recorded Sex Assigned at Not on file Gender Identity Not on file Sexual Orientation Not on file documented as of this encounter Patient Instructions * Patient Instructions* Arnaldo Kiser - 07/25/2018 9:30 AM EDT Plan for Leia: - Continue Rx doxycycline 100 mg take one tablet twice daily, as prescribed. Discussed to taper down to once daily if she does not experience any flare in her next menstrual cycle, then taper down toonce every other if she does not experience any flare in the following menstrual cycle - Start Rx spironolactone 100 mg take one tablet daily for 2 weeks, then increase to 1.5 tablets astolerated - Start Rx: Klaron apply to the face BID documented in this encounter Progress Notes * Deanna Tamayo W - 07/25/2018 9:30 AM EDT Images from the original note were not included. DERMATOLOGY - NEW PATIENT NOTE Date of service: 07/25/2018 Leia Carroll : 1990, 28 y.o. Chief Complaint: Chief Complaint Patient presents with ??? Skin Lesion HPI: Leia Carroll is a 28 y.o. female referred by Michelle Quiroga with the following concerns: Intermittent rash on the perioral area--not present at the time of my evaluation. The onset was 10 months ago. The rash developed every month, each week prior to the menstrual cycle. Each flare can last anywhere between 3 days and 1 week. She reports history of eczema, for which she was prescribed t riamcinolone. She, then, developed perioral dermatitis, for which she was prescribed minocycline without resolution. She has also been prescribed 50 mg spironolactone and metronidazole cream without significant improvement. She was, then, prescribed 100 mg doxycycline BID and Elidel cream. She reports that she only uses the Elidel cream during flares. She describes the perioral dermatitis as scaly lesions. She recently experienced a flare, since she is on her menstrual cycle, but it has resolved. Toms fluoride-free toothpaste. Current skin care regimen: Cetaphil body wash, unscented moisturizer. She is not currently using any contraceptive; not currently trying to get . 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 ergocalciferol (VITAMIN D) 50,000 unit capsule Take 1 (ONE)Capsule(s) (16534 UNIT = 1 Capsule(s)) QWEEK for 8 Weeks.Take 1 (ONE)Capsule(s) (07963 UNIT = 1 Capsule(s)) Q 2WEEKS for 1 Year. No current facility-administered medications for this visit. Allergies: Allergies no known allergies Review of Systems: - General: Feels well. - Skin: No other skin concerns. Examination: - Constitutional: Patient was alert, well-appearing and in no noticeable distress. - Skin: Skin examination of the face Diagnosis/Skin findings/Assessment/Plan: 1. Perioral Dermatitis vs Hormonal Acne - Skin is clear today - Continue Rx doxycycline 100 mg PO BID, as prescribed. Discussed to taper down to once daily if she does not experience any flare in her next menstrual cycle, then taper down to once every other if she does not experience any flare in the following menstrual cycle - Start Rx spironolactone 100 mg PO daily for 2 weeks, then increase to 150 mg daily as tolerated. Discussed possible side effects, and occasional need for blood work, especially potassium levels, depending on dose. If not improved with spironolactone, plan to add oral contraceptive in conjunction with spironolactone - Start Rx: Klaron apply to the face twice daily RTC: In October 2018 for dermatitis follow-up The following photos were obtained with patient consent: Note initiated by EFREN ABARCA LPN. I, Arnaldo Kiser, have performed the documentation for this encounter in the presence of and acting as a scribe for Deanna Tamayo MD. I performed the above scribed service and agree with the accuracy of the documentation in this encounter. Reviewed and signed by Deanna Tamayo MD Resident in Dermatology [facility] Patient seen in conjunction with staff power press supervisor: Nawaf Cid MD Section of Dermatology [facility] * Nawaf Cid MD - 07/25/2018 9:30 AM EDT I directly supervised Dr. Deanna Tamayo during this office visit. Dr. Tamayo presented the historyand physical exam to me. I then saw and examined this patient with Dr. Tamayo. We reviewed the history and pertinent details and I confirmed the physical findings. I agree with the details of the history and physical exam as documented in Dr. Young note. NAWAF CID MD Staff Physician documented in this encounter Plan of Treatment Not on file documented as of this encounter Visit Diagnoses Diagnosis Rash Rash and other nonspecific skin eruption documented in this encounter Care Teams Livestock Showman Relationship Specialty Start Date End Date Nii Dill MD [address] [place] [phone] PCP - General Family Medicine 07/25/18 documented as of this encounter
--- OUTSIDE RECORDS SUMMARY | 2024-11-09 15:44 | XMS_ITS | Encounter Summary ---
Author Organization [facility] Address [address] [place] [address] Care Team Providers Care Fuels Sales Representative Name Role Phone Unknown, Provider Primary Care Provider Unava ilable Encounter Details Date Type Department Care Team (Latest Contact Info) Description 12/04/2013 7:55 EST - 12/04/2013 23:59 EST Hospital Encounter [facility] [address] [place] [address] Unknown, Provider, Discharge Disposition: Home or Self Care Social History Tobacco Use Types Packs/Day Years Used Date Smoking Tobacco: Never Assessed Comments Unknown Sex and Gender Information Value Date Recorded Sex Assigned at Not on file Legal Sex Female 17:56 EST Gender Identity Female 04/26/2023 12:36 EDT Sexual Orientation Not on file documented as of this encounter Discharge Disposition Disposition Code Departure Means Destination Home or Self Prison documented in this encounter Plan of Treatment Not on file documented as of this encounter Visit Diagnoses Not on filedocumented in this encounter Care Teams Fuels Sales Representative Relationship Specialty Start Date End Date Unknown, Provider, PCP - General 12/15/10 10/16/19 documented as of this encounter
--- OUTSIDE RECORDS SUMMARY | 2024-11-09 15:44 | XMS_ITS | Encounter Summary ---
Author Organization [facility] Address [address] [place] [address] Care Team Providers Care Wood Getter Name Role Phone Unknown, Provider Primary Care Provider Unava ilable Encounter Details Date Type Department Care Team (Late st Contact Info) Description 10/24/2017 Historical Results Only [facility] - Main [address] [phone] Kisha Swartz PA [address] [place] [address] [phone] Social History Tobacco Use Types Packs/Day Years [...] Procedure Name Priority Date/Time Associated Diagnosis Comments [place] [facility] Routine 10/24/2017 12:20 EST GRP A STREP POC - CV Routine 10/24/2017 11:10 EST documented in this encounter Results * PHARYNGITIS SCREEN [place] [facility] (10/24/2017 12:20 EST) [place]IT[place]CREEN [place] [facility] 10/26/2017 8:45 EST [facility] PHARYNGITIS SCREEN - [facility] NO GROUP A STREP ISOLATED 10/26/2017 8:45 EST [facility] 10/24/2017 12:2 0 EST 10/24/2017 12:59 EST Narrative [facility] - 10/26/2017 8:45 EST Does PT Have a Latex Allergy? NO Kisha VIGIL CHEMISTRY & BLOOD GAS ORDERAB LES Final Result Performing Organization Address City/[facility]/ZIP Co de Phone Number [facility] * GRP A STREP POC - [facility] (10/24/2017 11:10 EST) GRP A STREP POC - [facility] NEGATIVE NEGATIVE 10/24/2017 11:11 EST [facility] 10/24/2017 11:1 0 EST 10/24/2017 11:10 EST Kisha VIGIL CHEMISTRY & BLOOD GAS ORDERAB LES Final Result Performing Organization Address City/[facility]/ZIP Co de Phone Number [facility] documented in this encounter Visit Diagnoses Not on filedocumented in this encounter Care Teams Wood Getter Relationship Specialty Start Date End Date Unknown, Provider, PCP - General 12/15/10 10/16/19 documented as of this encounter
--- OUTSIDE RECORDS SUMMARY | 2024-11-09 15:44 | XMS_ITS | Encounter Summary ---
Author Organization [facility] Address [address] [place] [address] Care Team Providers Care Inbound Ingredient Logistics Specialist Name Role Phone Unknown, Provider Primary Care Provider Unava ilable Encounter Details Date Type Department Care Team (Late st Contact Info) Description 02/15/2017 Historical Results Only [facility] - Main [address] [id number] Michelle Quiroga, YARITZA [address] [place] [phone] Social History Tobacco Use Types Packs/Day [...] Associated Diagnosis Comments BACTERIAL CULTURE, URINE Routine 02/15/2017 14:00 EDT POCT URINALYSIS Routine 02/15/2017 7:08 EDT documented in this encounter Results * BACTERIAL CULTURE, URINE (02/15/2017 14:00 EDT) USUAL UROGENITAL SUE - [facility] [place] UUV 02/17/2017 11:46 EDT [facility] CitrateConcentration 10,000-1 00,000 CFU/ML 02/17/2017 11:46 EDT [facility] 02/15/2017 14:0 0 EDT 02/15/2017 18:14 EDT Comment:VOID Narrative [facility] - 02/17/2017 11:46 EDT Does PT Have a Latex Allergy? NO us Michelle VIGIL MICROBIOLOGY - GENERAL ORDERABLE S Final Result [facility] * POCT URINALYSIS (02/15/2017 7:08 EDT) URINE APPEARANCE - [facility] Cloudy CLEAR 02/16/2017 7:09 EDT [facility] URINE BILIRUBIN - DIPSTICK - [facility] Negative NEGATIVE 02/16[facility]2017 [facility] 3+ NEGATIVE 02/16/2017 7[facility] COLOR - [facility] Yellow YELLOW 02/16/2017 7:09 [facility] URINE GLUCOSE - DIPSTICK - [facility] Negative NEGATIVE MG/DL 02/16/2017 7:09 [facility] URINE KETONE - [facility] 2+ NEGATIVE MG/DL 02/16/2017 7:09 [facility] URINE LEUK ESTERASE - [facility] Negative NEGATIVE 02/16/2017 7:09 [facility] URINE NITRITE - DIPSTICK - [facility] Negative NEGATIVE 02/16/2017 7:09 [facility] URINE PH - [facility] 6.0 () 7 7:09 [facility] URINE PROTEIN - DIPSTICK - [facility] Negative NEGATIVE 02/16/2017 7:09 [facility] URINE SPECIFIC GRAVITY - [facility] 1.025 () 02/16/2017 7:09 [facility] URINE UROBILINOGEN - DIPSTICK - [facility] 0.2 0.2 - 1.0 EU/DL 02/16/2017 7:09 [facility] 02/15/2017 7:08 EDT 02/15/2017 7:08 EDT us Michelle VIGIL POINT OF CARE TEST ORDERABLES Fi nal Result [facility] documented in this encounter Visit Diagnoses Not on filedocumented in this encounter Care Teams Inbound Ingredient Logistics Specialist Relationship Specialty Start Date End Date Unknown, Provider, PCP - General 12/15/10 10/16/19 documented as of this encounter
--- OUTSIDE RECORDS SUMMARY | 2024-11-09 15:44 | XMS_ITS | Encounter Summary ---
Author Organization [facility] Address [address] [place] [address] Care Team Providers Care Field Merchandiser Name Role Phone Unknown, Provider Primary Care Provider Unava ilable Encounter Details Date Type Department Care Team (Late st Contact Info) Description 11/28/2017 Historical Results Only [facility] - Main [address] [id number] Michelle Quiroga, YARITZA [address] [place] [phone] Social History Tobacco Use Types Packs/Day [...] Associated Diagnosis Comments BACTERIAL CULTURE, URINE Routine 11/28/2017 13:30 EST POCT URINALYSIS Routine 11/28/2017 13:11 EST documented in this encounter Results * BACTERIAL CULTURE, URINE (11/28/2017 13:30 EST) USUAL UROGENITAL SUE - [facility] [place] [facility]UV 11/30/2017 12:00 [facility] CitrateConcentration >100,000 CFU/ML 11/07 12:00 [facility] 11/28/2017 13:3 0 EST 11/28/2017 18:36 EST Comment:VOID Narrative [facility] - 11/30/2017 12:00 EST Does PT Have a Latex Allergy? NO us Michelle VIGIL MICROBIOLOGY - GENERAL ORDERABLE S Final Result [facility] * POCT URINALYSIS (11/28/2017 13:11 EST) URINE APPEARANCE - CV Cloudy CLEAR 11/28/2017 13:12 EST [facility] URINE BILIRUBIN - DIPSTICK - CV Negative NEGATIVE 11/28/2017 13:12 [facility] URINE BLOOD - CV Trace NEGATIVE 11/28/2017 13:12 [facility] URINE COLOR - [facility] Nenzel YELLOW 11/28/2017 13:12 [facility] Comment:INTERPRET RESULTS WI TH CAUTION. COLOR MAY INTERFERE WITH TEST RESULTS URINE GLUCOSE - DIPSTICK - CV Negative NEGATIVE 11/28/2017 13:12 [facility] URINE KETONE - [facility] Negative NEGATIVE 11/28/2017 13:12 [facility] URINE LEUK ESTERASE - [facility] 3+ NEGATIVE 11/28/2017 13:12 [facility] URINE NITRITE - DIPST[facility] - [facility] Positive NEGATIVE 11/28/2017 13:12 [facility] URINE PH - CV 7.5 () 8 13:12 [facility] URINE PROTEIN - DIPST[facility] - [facility] Trace NEGATIVE 11/28/2017 13:12 [facility] URINE SPECIFIC GRAVITY - CV 1.020 () 11/28/2017 13:12 [facility] URINE UROBILINOGEN - DIPSTICK - CV 0.2 0.2 - 1.0 EU/DL 11/28/2017 13:12 [facility] 11/28/2017 13:1 1 EST 11/28/2017 13:11 EST us Michelle VIGIL POINT OF CARE TEST ORDERABLES Fi nal Result [facility] documented in this encounter Visit Diagnoses Not on filedocumented in this encounter Care Teams Field Merchandiser Relationship Specialty Start Date End Date Unknown, Provider, PCP - General 12/15/10 10/16/19 documented as of this encounter
--- OUTSIDE RECORDS SUMMARY | 2024-11-09 15:44 | XMS_ITS | Encounter Summary ---
Author Organization [facility] Address [address] [place] [address] Care Team Providers Care Hardboard Supervisor Name Role Phone Unknown, Provider Primary Care Provider Unava ilable Encounter Details Date Type Department Care Team (Late st Contact Info) Description 02/14/2017 Historical Results Only [facility] Radiology Results [address] [place] [address] Michelle Quiroga, PA [address] [place] [address] Social History Tobacco Use Types [...] Procedure Name Priority Date/Time Associated Diagnosis Comments COMPLETE BLOOD COUNT WITH DIFFERENTIAL (AUTO) Routine 02/14/2017 12:00 EDT C REACTIVE PROTEIN Routine 02/14/2017 12 :00 EDT COMPREHENSIVE METABOLIC PANEL (CMP) Routine 02/14/2017 12:[address] ABDOMEN PELVIS W CONTRAST 02/14/2017 10:53 EDT SURGICAL PATHOLOGY Routine 02/14/2017 documented in this encounter Results * (ABNORMAL) C REACTIVE PROTEIN (02/14/2017 12:00 EDT) [facility] C-Reactive Protein 22.5(H) 0.0 - 3.0 mg/L 02/14/2017 12:30 [facility] 02/14/2017 12:0 0 EDT 02/14/2017 12:05 EDT Narrative [facility] - 02/14/2017 12:30 EDT Does PT Have a Latex Allergy? NO us Dominique Purdy WRAPPER OPENER ENP CHEMISTRY & BLOOD GAS ROXE SHARMIN Final Result [facility] * COMPREHENSIVE METABOLIC PANEL (CMP) (02/14/2017 12:00 EDT) [facility] Albumin % 3.8 3.4 - 5.0 g/dL 02/14/2017 12:30 [facility] ALKALINE PHOSPHATASE - [facility] 74 41 - 126 U/L 02/14/2017 12:30 [facility] BILIRUBIN TOTAL 0.5 0.0 - 1.0 mg/dL 02/14/2017 12:30 [facility] BUN - [facility] 8 7 - 18 mg/dL 02/14/2017 12:30 [facility] CALCIUM - [facility] 8.8 8.5 - 10.1 mg/dL 02/14/2017 12:30 [facility] Chloride 106 98 - 107 mEq/L 02/14/2017 12:30 [facility] CO2 Total 22 21 - 32 mEq/L 02/14/2017 12:30 [facility] CREATININE 0.65 0.5 - 1.3 mg/dL 02/14/2017 12:30 [facility] eGFR >60 02/14/2017 12:30 [facility] Comment: Chronic renal impairment is defined as GFR <60 Multiply result by 1.210 for patients. eGFR calculated using the IDMS-traceable MDRD Study Equation. ??(effective 09/08/2014) Anion Gap 10 5 - 15 02/14/2017 12:30 [facility] GLUCOSE - [facility] 79 70 - 100 mg/dL 02/14/2017 12:30 EDT [facility] Potassium 3.8 3.5 - 5.0 mEq/L 02/14/2017 12:30 EDT [facility] Sodium 138 135 - 145 mEq/L 02/14/2017 12:30 EDT [facility] TOTAL PROTEIN - [facility] 7.4 6.4 - 8.2 gm/dl 02/14/2017 12:30 EDT [facility] SGOT/AST - [facility] 10 10 - 37 U/L 02/14/2017 12:30 EDT [facility] SGPT/ALT - [facility] 14 12 - 78 U/L 02/14/2017 12:30 [facility] 02/14/2017 12:0 0 EDT 02/14/2017 12:05 EDT [facility] - 02/14/2017 12:30 EDT Does PT Have a Latex Allergy? NO us Dominique Purdy WRAPPER OPENER ENP CHEMISTRY & BLOOD GAS SITA FINNEY Final Result [facility] * COMPLETE BLOOD COUNT WITH DIFFERENTIAL (AUTO) (02/14/2017 12:00 EDT) ABSOLUTE NEUTROPHIL COUN - [facility] 5.48 1.7 - 7.0 10e3/ul 02/14/2017 12:14 EDT [facility] BASO # - [facility] 0.02 0.0 - 0.3 10e3/uL 02/14/2017 12:14 EDT [facility] BASO % - [facility] 0 0 - 2 % 02/14/2017 12:14 EDT [facility] EOS # - [facility] 0.10 0.05 - 0.5 10e3/uL 02/14/2017 12:14 EDT [facility] EOS % - [facility] 1 0 - 5 % 02/14/2017 12:14 EDT [facility] GRAN % - [facility] 66 40 - 80 % 02/14/2017 12:14 [facility] HEMATOCRIT - [facility] 40.4 34.0 - 47.0 % 02/14/2017 12:14 [facility] HEMOGLOBIN - [facility] 13.3 11.2 - 15.7 g/dl 02/14/2017 12:14 [facility] IG# - [facility] 0.02 0 - 0.07 10e3/uL 02/14/2017 12:14 [facility] IG% - [facility] 0.2 0 - 0.9 % 02/14/2017 12:14 [facility] LYMPH # - [facility] 2.10 0.9 - 2.9 10e3/uL 02/14/2017 12:14 [facility] LYMPH% - [facility] 25 20 - 40 % 02/14/2017 12:14 [facility] MEAN CORPUSCULAR HGB - [facility] 28.1 26 - 34 pg 02/14/2017 12:14 [facility] MEAN CORPUSCULAR HGB CONC - [facility] 32.9 31 - 36 g/dL 02/14/2017 12:14 [facility] MEAN CELL VOLUME - [facility] 85.2 77 - 100 fl 02/14/2017 12:14 [facility] MONO # - [facility] 0.65 0.3 - 0.9 10e3/uL 02/14/2017 12:14 [facility] MONO% - [facility] 8 0 - 12 % 02/14/2017 12:14 [facility] PLATELET COUNT 265 150 - 400 10e3/ul 02/14/2017 12:14 [facility] RED BLOOD COUNT - [facility] 4.74 3.8 - 5.2 10e6/ul 02/14/2017 12:14 [facility] RED CELL DISTRI WIDTH - [facility] 13.3 11.8 - 15.6 % 02/14/2017 12:14 [facility] WHITE BLOOD COUNT - [facility] 8.4 3.5 - 10.5 10e3/ul 02/14/2017 12:14 [facility] 02/14/2017 12:0 0 EDT 02/14/2017 12:05 EDT Narrative [facility] - 02/14/2017 12:14 EDT Does PT Have a Latex Allergy? NO us Dominique Purdy WRAPPER OPENER ENP HEMATOLOGY & PF4 ORDERABLE S Final Result [facility] * CT ABDOMEN PELVIS W CONTRAST (02/14/2017 10:53 EDT) Anatomical Region Laterality Modality Other 02/14/2017 10:5 3 EDT Narrative 02/14/2017 11:13 EDT ? EXAM: CAT SCAN/ABDOMEN PELVIS WITH CONTRA EX. D/ (1019) ? CLINICAL INFORMATION: ? R10 ??RLQ PAIN AT MCBURNEYS POINT ? INDICATION: RLQ PAIN R10 ??RLQ PAIN AT MCBURNEYS POINT ? TECHNIQUE: Axial enhanced imaging of the abdomen and pelvis was ? obtained. Multiplanar reconstruction was performed. ? COMPARISON: None. ? FINDINGS: ? The appendix is mildly thickened, especially in the axial plane. The ? appendix is well-visualized on axial series 2 image 95 and 96 and it ? measures up to 9 mm and diameter and there is minimal surrounding ? hazy stranding. The appendix is also seen on the coronal reformations ? images 34 through 44 and sagittal series 5 image 68 through 58. ? Although the appendix appears less dilated on the sagittal and ? coronal reformations, it still measures borderline thickened, between ? 6 and 8 mm in diameter. There is no evidence of perforation. There is ? no periappendiceal collection or free intraperitoneal air. There is ? no proximal bowel obstruction. ? The lung bases are clear. There is no pleural or pericardial ? effusion. ? The liver, spleen, adrenal glands, pancreas and gallbladder appear ? normal. The kidneys are normal in position and morphology. There is ? no hydronephrosis or nephrolithiasis. The ureters normal in caliber. ? The bladder is thin-walled. ? The uterus is anteverted. There is a 2.1 cm hypoattenuating right ? adnexal lesion, likely reflecting a small cyst. No free fluid is ? detected. ? The aorta is normal in caliber. No lymphadenopathy is detected. The ? anterior abdominal wall is intact. ? There is no acute fracture or acute osseous abnormality. ? IMPRESSION: ? Mildly dilated appendix with minimal periappendiceal haziness. ? Findings are compatible with early acute appendicitis the right ? clinical setting. ? Findings discussed with Jess Quiroga by Dr. Ward on 02/14/2017 at ? 11:10 AM. ? REPORT SIGNED IN OTHER VENDOR SYSTEM 02/14/2017 ?Reported By: Lam Ward MD ? CC: Terri Holman APRN ? Transcribed Date/Time: 02/14/2017 (1113) ? Surgical Services Manager: ? Printed Date/Time: 04/20/2019 (1031) ? PAGE 1 ? Signed Report ? Procedure Note Lam Ward E - 09/11/2019 EXAM: CAT SCAN/ABDOMEN PELVIS WITH CONTRA EX. D/ (1019) CLINICAL INFORMATION: R10 RLQ PAIN AT MCBURNEYS POINT INDICATION: RLQ PAIN R10 RLQ PAIN AT MCBURNEYS POINT TECHNIQUE: Axial enhanced imaging of the abdomen and pelvis was obtained. Multiplanar reconstruction was performed. COMPARISON: None. FINDINGS: The appendix is mildly thickened, especially in the axial plane.The appendix is well-visualized on axial series 2 image 95 and 96 andit measures up to 9 mm and diameter and there is minimal surrounding hazy stranding. The appendix is also seen on the coronalreformations images 34 through 44 and sagittal series 5 image 68 through 58. Although the appendix appears less dilated on the sagittal and coronal reformations, it still measures borderline thickened,between 6 and 8 mm in diameter. There is no evidence of perforation. Thereis no periappendiceal collection or free intraperitoneal air. There is no proximal bowel obstruction. The lung bases are clear. There is no pleural or pericardial effusion. The liver, spleen, adrenal glands, pancreas and gallbladder appear normal. The kidneys are normal in position and morphology. There is no hydronephrosis or nephrolithiasis. The ureters normal incaliber. The bladder is thin-walled. The uterus is anteverted. There is a 2.1 cm hypoattenuating right adnexal lesion, likely reflecting a small cyst. No free fluid is detected. The aorta is normal in caliber. No lymphadenopathy is detected. The anterior abdominal wall is intact. There is no acute fracture or acute osseous abnormality. IMPRESSION: Mildly dilated appendix with minimal periappendiceal haziness. Findings are compatible with early acute appendicitis the right clinical setting. Findings discussed with Jess Quiroga by Dr. Ward on 02/14/2017 at 11:10 AM. REPORT SIGNED IN OTHER VENDOR SYSTEM 02/14/2017 Reported By: Lam Ward MD CC: Terri Holman APRN Transcribed Date/Time: 02/14/2017 (6780) Surgical Services Manager: Printed Date/Time: 04/20/2019 (1505) PAGE 1 Signed Report Michelle VIGIL IMG CT ORDERABLES Final Result * SURGICAL PATHOLOGY (02/14/2017) 02/14/2017 02/15/2017 9:2 9 EDT Narrative [facility] - 02/16/2017 10:30 EDT ----- ------- Name: MARILEE PINK ?: [birth year] ?Age/Sex: 28/F ?Unit#: [id number] ? Loc: SDS ? Status: DEP SDC ?? Reg Date: 02/14/17 ? Pt.Phone Number: ? ----- ------- Specimen: [id number] ? STATUS: SOUT ?Spec Date:02/14/17 ? Physician Copies: ?Enrique Mcghee MD ? Tissues: A ?? Appendix, other than incidental ?Nii Dill MD ?? CPT: 14047 ?? Units: ??1 ?FINAL DIAGNOSIS ? APPENDIX, APPENDECTOMY; ? - Acute suppurative appendicitis and serositis. ? GROSS DESCRIPTION ? Received in formalin labeled with the patient's name and Appendix is a ? vermiform appendix with attached mesoappendix. ??The appendix has a length of ? 6.5 cm. ??Alfred are present at the proximal resection margin which has a ? diameter of 0.6 cm. ??The mid portion of the appendix measures 0.7 cm in ? diameter and the distal tip 0.5 cm in diameter. ??The mesoappendix measures up ? to 1.7 cm wide and 1.0 cm thick. ??The serosal surface is dull, pickard-drew. ??The ? resection margin is relatively free of inflammatory change. ??No perforation is ? grossly identified. ??Sectioning through the appendix reveals a proximally ? dilated lumen containing blood-tinged exudate. ??rs 1 KF ?? PREOP DX/CLINICAL HISTORY ?Appendicitis Signed ____(signature on file)____ Nel Viera M.D. 02/16/17 By the signature above, the attending physician certifies that he/she has personally conducted a gross and/or microscopic examination of the described specimens and rendered or confirmed the above diagnosis. Test Performed by [facility], [address] [place] [address] Commercial Driver: Nel Viera MD PHD ----- ------- us Enrique Mcghee MD PATHOLOGY ORDERABLES Final Resul t [facility] documented in this encounter Visit Diagnoses Not on filedocumented in this encounter Care Teams Hardboard Supervisor Relationship Specialty Start Date End Date Unknown, Provider, PCP - General 12/15/10 10/16/19 documented as of this encounter
--- OUTSIDE RECORDS SUMMARY | 2024-11-09 15:44 | XMS_ITS | Encounter Summary ---
Author Organization [facility] Address [address] [place] [address] Care Team Providers Care Plate Glass Installer Name Role Phone Unknown, Provider Primary Care Provider Unava ilable Encounter Details Date Type Department Care Team (Latest Contact Info) Description 02/14/2017 12:35 EDT - 02/14/2017 23:59 EDT Hospital Encounter [facility] [address] [place] [address] Unknown, Provider, Discharge Disposition: Home or Self [...] Code Departure Means Destination Home or Self Assisted documented in this encounter Plan of Treatment Not on file documented as of this encounter Visit Diagnoses Not on filedocumented in this encounter Care Teams Plate Glass Installer Relationship Specialty Start Date End Date Unknown, Provider, PCP - General 12/15/10 10/16/19 documented as of this encounter
--- OUTSIDE RECORDS SUMMARY | 2024-11-09 15:44 | XMS_ITS | Encounter Summary ---
Author Organization [facility] Address [address] [place] [address] Care Team Providers Care Procurement Consultant Name Role Phone Unknown, Provider Primary Care Provider Unava ilable Reason for Visit * Reason Onset Date Comments Appointment Related 12/15/2010 Encounter Details Date Type Department Care Team (Late st Contact Info) Description 12/15/2010 Telephone [facility] [address] [place] [address] Sagar Velazquez MD [address] [place] [address] [phone] Appointment Related Social History Tobacco Use Types Packs/Day Years Used Date Smoking Tobacco: Never Assessed Comments Unknown Sex and Gender Information Value Date Recorded Sex Assigned at Not on file Legal Sex Female 17:56 EST Gender Identity Female 04/26/2023 12:36 EDT Sexual Orientation Not on file documented as of this encounter Miscellaneous Notes * Telephone Encounter - Isabelle Grajeda - 12/15/2010 1419 EST Patient was referred by the ER. Dr Velazquez wanted to see her this week 12/16 or 12/17. The phone # we had in [employer] was out of service. I was able to find a number in [employer], but could not reach anything but a very generic greeting. I also tried calling the number listed as the mother's work number, but got a FAX machine. I did leave a msg on [phone] for Leia to call. I did not schedule as yet as I'm not sure we will be able to reach the patient this week. documented in this encounter Plan of Treatment Not on file documented as of this encounter Visit Diagnoses Not on filedocumented in this encounter Care Teams Procurement Consultant Relationship Specialty Start Date End Date Unknown, Provider, PCP - General 12/15/10 10/16/19 documented as of this encounter
--- OUTSIDE RECORDS SUMMARY | 2024-11-09 15:44 | XMS_ITS | Encounter Summary ---
Author Organization [facility] Address [address] [place] [address] Care Team Providers Care Factory Machine Computer Operator Name Role Phone Unknown, Provider Primary Care Provider Unava ilable Encounter Details Date Type Department Care Team (Late st Contact Info) Description 12/29/2017 Historical Results Only [facility] - Main [address] [address] Radha Medel PA-C [address] [place] [phone] Social History Tobacco Use Types Packs/Day Years [...] Procedure Name Priority Date/Time Associated Diagnosis Comments [facility] Routine 12/29/2017 11 :50 EST documented in this encounter Results * [facility] (12/29/2017 11:50 EST) [facility] NEG 12/29/2017 13:47 EST [facility] 12/29/2017 11:5 0 EST 12/29/2017 13:16 EST Narrative [facility] - 12/29/2017 13:47 EST Does PT Have a Latex Allergy? NO Enter/Edit CPT and ICD codes? N us aRdha Medel PA-C HEMATOLOGY & PF4 ORDERABLES F inal Result [facility] documented in this encounter Visit Diagnoses Not on filedocumented in this encounter Care Teams Factory Machine Computer Operator Relationship Specialty Start Date End Date Unknown, Provider, PCP - General 12/15/10 10/16/19 documented as of this encounter
--- OUTSIDE RECORDS SUMMARY | 2024-11-09 15:44 | XMS_ITS | Encounter Summary ---
Author Organization [facility] Address [address] [place] [address] Care Team Providers Care Renderer Name Role Phone Unknown, Provider Primary Care Provider Unava ilable Encounter Details Date Type Department Care Team (Latest Contact Info) Description 04/16/2018 11:33 EDT - 04/16/2018 23:59 EDT Hospital Encounter [facility] [address] [place] [address] Unknown, Provider, Discharge Disposition: Home or Self [...] Code Departure Means Destination Home or Self [facility] documented in this encounter Plan of Treatment Not on file documented as of this encounter Visit Diagnoses Not on filedocumented in this encounter Care Teams Renderer Relationship Specialty Start Date End Date Unknown, Provider, PCP - General 12/15/10 10/16/19 documented as of this encounter
--- OUTSIDE RECORDS SUMMARY | 2024-11-09 15:44 | XMS_ITS | Encounter Summary ---
Author Organization [facility] Address [address] [place] [address] Care Team Providers Care Crystallographer Name Role Phone Unknown, Provider Primary Care Provider Unava ilable Encounter Details Date Type Department Care Team (Late st Contact Info) Description 08/15/2017 Historical Results Only [facility] - Main [address] [id number] Michelle Quiroga, YARITZA [address] [place] [phone] Social History Tobacco Use Types Packs/Day [...] Associated Diagnosis Comments BACTERIAL CULTURE, URINE Routine 08/15/2017 15:20 EDT POCT URINALYSIS Routine 08/15/2017 14:57 EDT documented in this encounter Results * BACTERIAL CULTURE, URINE (08/15/2017 15:20 EDT) USUAL UROGENITAL SUE - [facility] 08/17/2017 11:20 EDT [facility] CitrateConcentration >100,000 CFU/ML 08/06 11:20 EDT [facility] 08/15/2017 15:2 0 EDT 08/15/2017 18:21 EDT Comment:VOID Narrative [facility] - 08/17/2017 11:20 EDT Does PT Have a Latex Allergy? NO us Michelle VIGIL MICROBIOLOGY - GENERAL ORDERABLE S Final Result [facility] * POCT URINALYSIS (08/15/2017 14:57 EDT) URINE APPEARANCE - [facility] Cloudy CLEAR 08/15/2017 14:57 EDT [facility] URINE BILIRUBIN - DIPSTICK - [facility] Negative NEGATIVE 08/15/2017 14:57 EDT [facility] URINE BLOOD - [facility] Trace NEGATIVE 08/15/2017 14:57 EDT [facility] URINE COLOR - [facility] Armstrong YELLOW 08/15/2017 14:57 EDT [facility] URINE GLUCOSE - [facility] - [facility] Negative NEGATIVE 08/15/2017 14:57 EDT [facility] URINE KETONE - [facility] Negative NEGATIVE 08/15/2017 14:57 EDT [facility] URINE LEUK ESTERASE - [facility] 3+ NEGATIVE 08/15/2017 14:57 EDT [facility] URINE NITRITE - [facility] - [facility] Positive NEGATIVE 08/15/2017 14:57 EDT [facility] URINE PH - [facility] 6.5 () 7 14:57 EDT [facility] URINE PROTEIN - [facility] - [facility] Negative NEGATIVE 08/15/2017 14:57 EDT [facility] URINE SPECIFIC GRAVITY - [facility] 1.025 () 08/15/2017 14:57 EDT [facility] URINE UROBILINOGEN - [facility] [facility] 1.0 0.2 - 1.0 08/21/2017 11:27 EDT [facility] 08/15/2017 14:5 7 EDT 08/15/2017 14:57 EDT us Michelle VIGIL POINT OF CARE TEST ORDERABLES Fi nal Result [facility] documented in this encounter Visit Diagnoses Not on filedocumented in this encounter Care Teams Crystallographer Relationship Specialty Start Date End Date Unknown, Provider, PCP - General 12/15/10 10/16/19 documented as of this encounter
--- OUTSIDE RECORDS SUMMARY | 2024-11-09 15:44 | XMS_ITS | Encounter Summary ---
Author Organization [facility] Address [address] [place] [address] Care Team Providers Care Energy Risk Management Analyst Name Role Phone Unknown, Provider Primary Care Provider Unava ilable Encounter Details Date Type Department Care Team (Late st Contact Info) Description 12/27/2010 Abstract Used for ABSTRACTING Data [phone] Unknown, Provider, Social History Tobacco Use Types Packs/Day Years [...] on filedocumented in this encounter Care Teams Energy Risk Management Analyst Relationship Specialty Start Date End Date Unknown, Provider, PCP - General 12/15/10 10/16/19 documented as of this encounter
--- OUTSIDE RECORDS SUMMARY | 2024-11-09 15:44 | XMS_ITS | Encounter Summary ---
Author Organization [facility] Address [address] [place] [address] Care Team Providers Care Mortgage Analyst Name Role Phone Unknown, Provider Primary Care Provider Unava ilable Encounter Details Date Type Department Care Team (Late st Contact Info) Description 09/26/2017 Historical Results Only [facility] - Main [place] [address] [place] [address] [id number] Michelle Quiroga, YARITZA [address] [place] [phone] Social History Tobacco Use Types Packs/Day [...] Procedure Name Priority Date/Time Associated Diagnosis Comments GC/CHLAMYDIA URINE - [facility] Routine 09/26/2017 14:00 EST BACTERIAL CULTURE, URINE Routine 09/26/2017 14:00 EST POCT URINALYSIS Routine 09/26/2017 13:42 EST documented in this encounter Results * BACTERIAL CULTURE, URINE (09/26/2017 14:00 EST) Urine Culture GROUP A STREP RESULTS [facility] TO [facility] 09/29/17 1026 09/29/2017 10:26 [facility] USUAL UROGENITAL SUE - [facility] UUV 09/29/2017 10:26 [facility] CitrateConcentration 10,000-100 ,000 CFU/ML 09/29/2017 10:26 [facility] Gliadin IgA Ab GRPA 09/29/2017 10:26 [facility] CitrateConcentration <10,000 CFU/ML 09/07 10:26 [facility] 09/26/2017 14:0 0 EST 09/26/2017 18:26 EST Comment:VOID Narrative [facility] - 09/29/2017 10:26 EST Does PT Have a Latex Allergy? NO Michelle VIGIL MICROBIOLOGY - GENERAL ORDERABLE S Final Result [facility] * GC/CHLAMYDIA URINE - [facility] (09/26/2017 14:00 EST) [facility] CHLAMYDIA URINE PCR - [facility] NOT DETECTED 09/26/2017 21:43 EST [facility] GONORRHEA URINE PCR - [facility] NOT DETECTED 09/26/2017 21:43 [facility] SOURCE URINE 09/26/2017 21:43 [facility] 09/26/2017 14:0 0 EST 09/26/2017 18:26 EST Narrative [facility] - 09/26/2017 21:43 EST Does PT Have a Latex Allergy? NO Michelle VIGIL CHEMISTRY & BLOOD GAS ORDERABLES Final Result [facility] * POCT URINALYSIS (09/26/2017 13:42 EST) Pathologist [facility] URINE APPEARANCE - [facility] Sl Cloudy CLEAR 09/26/2017 13:43 [facility] URINE BILIRUBIN - DIPSTICK - [facility] Negative NEGATIVE 09/26/2017 13:43 [facility] URINE BLOOD - [facility] Negative NEGATIVE 09/26/2017 13:43 [facility] URINE COLOR - [facility] Yellow YELLOW 09/26/2017 13:43 [facility] URINE GLUCOSE - DIPSTICK - [facility] Negative NEGATIVE 09/26/2017 13:43 [facility] URINE KETONE - [facility] Negative NEGATIVE 09/26/2017 13:43 [facility] URINE LEUK ESTERASE - [facility] Trace NEGATIVE 09/26/2017 13:43 [facility] URINE NITRITE - DIPSTICK - [facility] Positive NEGATIVE 09/26/2017 13:43 [facility] URINE PH - [facility] 6.5 () 7 13:43 [facility] URINE PROTEIN - DIPSTICK - [facility] Negative NEGATIVE 09/26/2017 13:43 [facility] URINE SPECIFIC GRAVITY - [facility] 1.020 () 09/26/2017 13:43 [facility] URINE UROBILINOGEN - DIPSTICK - [facility] 0.2 0.2 - 1.0 EU/DL 09/26/2017 13:43 [facility] 09/26/2017 13:4 2 EST 09/26/2017 13:42 EST us Michelle VIGIL POINT OF CARE TEST ORDERABLES Fi nal Result [facility] documented in this encounter Visit Diagnoses Not on filedocumented in this encounter Care Teams Mortgage Analyst Relationship Specialty Start Date End Date Unknown, Provider, PCP - General 12/15/10 10/16/19 documented as of this encounter
--- OUTSIDE RECORDS SUMMARY | 2024-11-09 15:44 | XMS_ITS | Encounter Summary ---
Author Organization [facility] Address [address] [place] [address] Care Team Providers Care Casino Assistant Manager Name Role Phone Unknown, Provider Primary Care Provider Unava ilable Encounter Details Date Type Department Care Team (Late st Contact Info) Description 04/16/2018 Historical Results Only [facility] Radiology Results [address], [place] [phone] Jess Bonner MD [address] [place] [address] Social History Tobacco Use Types Packs/Day [...] Procedure Name Priority Date/Time Associated Diagnosis Comments CT ABDOMEN PELVIS W CONTRAST 04/16/2018 18:36 EDT COMPLETE BLOOD COUNT WITH DIFFERENTIAL (AUTO) Routine 04/16/2018 16:58 EDT C REACTIVE PROTEIN Routine 04/16/2018 16 :58 EDT LIPASE Routine 04/16/2018 16:58 EDT COMPREHENSIVE METABOLIC PANEL (CMP) Routine 04/16/2018 16:58 EDT [facility] URINE POC - [facility] Routine 04/16/2018 14:42 EDT POCT URINALYSIS Routine 04/16/2018 13:59 EDT documented in this encounter Results * CT ABDOMEN PELVIS W CONTRAST (04/16/2018 18:36 EDT) Anatomical Region Laterality Modality Other 04/16/2018 18:3 6 EDT Narrative 04/16/2018 18:36 EDT ? EXAM: CAT SCAN/ABDOMEN PELVIS WITH CONTRA EX. D/ (1742) ? CLINICAL INFORMATION: ? DIFFUSE ABD PAIN, BLOATING ? EXAM: ? CT Abdomen and Pelvis With Intravenous Contrast ? EXAM DATE/TIME: ? 04/16/2018 4:41 PM ? CLINICAL HISTORY: ? 27 years old, female; Pain; Abdominal pain; Other: Diffuse abd ? pain; Additional info: Diffuse abd pain, bloating, ? sbo, ? enteritis ? TECHNIQUE: ? Axial computed tomography images of the abdomen and pelvis ? with intravenous contrast. ??All CT scans at this facility use ? one or more dose reduction techniques, viz.: automated exposure ? control; ma/kV adjustment per patient size (including targeted ? exams where dose is matched to indication; i.e. head); or ? iterative reconstruction technique. ? CONTRAST: ? 100 mL of Omnipaque 350 administered intravenously. ? COMPARISON: ? CT - ABDOMEN PELVIS WITH CONTRAST 2017-02-14 10:16 ? FINDINGS: ? Lung bases: ??No suspicious mass or airspace process in the ? visualized lung bases. ?ABDOMEN: ? Liver: ??Liver appears normal with no focal abnormality. ? Gallbladder and bile ducts: ??Gallbladder is present and shows ? no evidence of gallstone. ? Pancreas: ??Pancreas appears normal. ??No focal mass or ? peripancreatic inflammation. ? Spleen: ??Spleen appears homogeneous without focal mass. ? Adrenals: ??Adrenal glands are normal in appearance. ? Kidneys and ureters: ??Kidneys appear normal, with no stone, ? solid mass or hydronephrosis. ? Stomach and bowel: ??Stomach is distended with ingested ? material and fluid. ??No evidence of small bowel obstruction. ? Diverticular changes are present within the colon without ? inflammation. ?PELVIS: ? Appendix: ??Appendix is surgically absent. ? Bladder: ??Bladder appears normal. ? Reproductive: ??Right adnexal 3 x 1.5 cm structure suggests an ? involuting ovarian cyst. Adjacent pelvic cul-de-sac fluid is ? present with intermediate density suggesting possible rupture of ? a hemorrhagic cyst. ?ABDOMEN and PELVIS: ? PAGE 1 ? Signed Report ? (CONTINUED) ? Intraperitoneal space: ??No pneumoperitoneum. ? Bones/joints: ??Bony structures show no acute fracture or ? destructive process. ? Soft tissues: ??Unremarkable. ? Vasculature: ??Main portal and splenic veins enhance normally. ? No abdominal aortic aneurysm. ? Lymph nodes: ??Unremarkable. ??No enlarged lymph nodes. ? IMPRESSION: ? Intermediate density dependent pelvic free fluid suggesting ? possible blood. This could be from a ruptured hemorrhagic cyst, ? given the appearance of the right adnexa. ? No acute bowel process. ? Colonic diverticular changes without evidence of inflammation ? REPORT SIGNED IN OTHER VENDOR SYSTEM 04/16/2018 ?Reported By: Gabe Menendez MD ? CC: ? Transcribed Date/Time: 04/16/2018 (1836) ? Card Folder: ? Printed Date/Time: 04/26/2019 (1005) ? PAGE 2 ? Signed Report ? Procedure Note Sherwin Menendez MD - 09/11/2019 EXAM: CAT SCAN/ABDOMEN PELVIS WITH CONTRA EX. D/ (1742) CLINICAL INFORMATION: DIFFUSE ABD PAIN, BLOATING EXAM: CT Abdomen and Pelvis With Intravenous Contrast EXAM DATE/TIME: 04/16/2018 4:41 PM CLINICAL HISTORY: 27 years old, female; Pain; Abdominal pain; Other: Diffuse abd pain; Additional info: Diffuse abd pain, bloating, ? sbo, ? enteritis TECHNIQUE: Axial computed tomography images of the abdomen and pelvis with intravenous contrast. All CT scans at this facility use one or more dose reduction techniques, viz.: automated exposure control; ma/kV adjustment per patient size (including targeted exams where dose is matched to indication; i.e. head); or iterative reconstruction technique. CONTRAST: 100 mL of Omnipaque 350 administered intravenously. COMPARISON: CT - ABDOMEN PELVIS WITH CONTRAST 2017-02-14 10:16 FINDINGS: Lung bases: No suspicious mass or airspace process in the visualized lung bases. ABDOMEN: Liver: Liver appears normal with no focal abnormality. Gallbladder and bile ducts: Gallbladder is present and shows no evidence of gallstone. Pancreas: Pancreas appears normal. No focal mass or peripancreatic inflammation. Spleen: Spleen appears homogeneous without focal mass. Adrenals: Adrenal glands are normal in appearance. Kidneys and ureters: Kidneys appear normal, with no stone, solid mass or hydronephrosis. Stomach and bowel: Stomach is distended with ingested material and fluid. No evidence of small bowel obstruction. Diverticular changes are present within the colon without inflammation. PELVIS: Appendix: Appendix is surgically absent. Bladder: Bladder appears normal. Reproductive: Right adnexal 3 x 1.5 cm structure suggests an involuting ovarian cyst. Adjacent pelvic cul-de-sac fluid is present with intermediate density suggesting possible rupture of a hemorrhagic cyst. ABDOMEN and PELVIS: PAGE 1 Signed Report (CONTINUED) Intraperitoneal space: No pneumoperitoneum. Bones/joints: Bony structures show no acute fracture or destructive process. Soft tissues: Unremarkable. Vasculature: Main portal and splenic veins enhance normally. No abdominal aortic aneurysm. Lymph nodes: Unremarkable. No enlarged lymph nodes. IMPRESSION: Intermediate density dependent pelvic free fluid suggesting possible blood. This could be from a ruptured hemorrhagic cyst, given the appearance of the right adnexa. No acute bowel process. Colonic diverticular changes without evidence of inflammation REPORT SIGNED IN OTHER VENDOR SYSTEM 04/16/2018 Reported By: Gabe Menendez MD CC: Transcribed Date/Time: 04/16/2018 (4266) Card Folder: Printed Date/Time: 04/26/2019 (4762) PAGE 2 Signed Report Jess Bonner MD IMG CT ORDERABLES Final Result * LIPASE (04/16/2018 16:58 EDT) Lipase 139 <251 U/L 04/16/2018 17:20 EDT [facility] 04/16/2018 16:5 8 EDT 04/16/2018 17:04 EDT Narrative [facility] - 04/16/2018 17:31 EDT Does PT Have a Latex Allergy? NO Jess Bonner MD CHEMISTRY & BLOOD GAS ORDERABLE S Final Result [facility] * C REACTIVE PROTEIN (04/16/2018 16:58 EDT) [facility] C-Reactive Protein <5.0 <10.0 mg/L 04/16/2018 17:31 [facility] 04/16/2018 16:5 8 EDT 04/16/2018 17:04 EDT Narrative [facility] - 04/16/2018 17:31 EDT Does PT Have a Latex Allergy? NO us Jess Bonner MD CHEMISTRY & BLOOD GAS ORDERABLE S Final Result [facility] * COMPREHENSIVE METABOLIC PANEL (CMP) (04/16/2018 16:58 EDT) [facility] Albumin % 4.1 3.4 - 4.9 g/dL 04/16/2018 17:20 [facility] ALKALINE PHOSPHATASE - [facility] 82 38 - 126 U/L 04/16/2018 17:20 [facility] BILIRUBIN TOTAL 0.3 0.2 - 1.3 mg/dL 04/16/2018 17:20 [facility] BUN - [facility] 18 10 - 26 mg/dL 04/16/2018 17:20 [facility] CALCIUM - [facility] 10.0 8.5 - 10.5 mg/dL 04/16/2018 17:20 [facility] Chloride 102 96 - 110 mmol/L 04/16/2018 17:20 [facility] CO2 Total 26 22 - 32 mEq/L 04/16/2018 17:20 [facility] CREATININE 0.72 0.52 - 1.04 mg/dL 04/16/2018 17:20 [facility] eGFR >60 04/16/2018 17:20 [facility] Comment: Chronic renal impairment is defined as GFR <60 Multiply result by 1.210 for patients. eGFR calculated using the IDMS-traceable MDRD Study Equation. ??(effective 09/08/2014) Anion Gap 10 0 - 18 04/16/2018 17:20 [facility] GLUCOSE - [facility] 90 70 - 100 mg/dL 04/16/2018 17:20 [facility] Potassium 3.9 3.5 - 5.0 mEq/L 04/16/2018 17:20 [facility] Sodium 138 136 - 145 mEq/L 04/16/2018 17:20 [facility] TOTAL PROTEIN - [facility] 7.0 6.2 - 8.2 gm/dL 04/16/2018 17:20 [facility] SGOT/AST - [facility] 19 14 - 36 U/L 04/16/2018 17:20 [facility] SGPT/ALT - [facility] 30 9 - 52 U/L 8 17:20 [facility] 04/16/2018 16:5 8 EDT 04/16/2018 17:04 EDT [facility] - 04/16/2018 17:31 EDT Does PT Have a Latex Allergy? NO us Jess Bonner MD CHEMISTRY & BLOOD GAS ORDERABLE S Final Result [facility] * COMPLETE BLOOD COUNT WITH DIFFERENTIAL (AUTO) (04/16/2018 16:58 EDT) ABSOLUTE NEUTROPHIL COUN - CV 6.38 1.7 - 7.0 10e3/ul 04/16/2018 17:10 [facility] BASO # - [facility] 0.03 0.0 - 0.3 10e3/uL 04/16/2018 17:10 [facility] BASO % - [facility] 0 0 - 2 % 04/16/2018 17:10 [facility] EOS # - [facility] 0.10 0.05 - 0.5 10e3/uL 04/16/2018 17:10 [facility] EOS % - [facility] 1 0 - 5 % 04/16/2018 17:10 [facility] GRAN % - [facility] 64 40 - 80 % 04/16/2018 17:10 [facility] HEMATOCRIT - [facility] 38.3 34.0 - 47.0 % 04/16/2018 17:10 [facility] HEMOGLOBIN - [facility] 12.6 11.2 - 15.7 g/dl 04/16/2018 17:10 [facility] IG# - [facility] 0.05 0 - 0.07 10e3/uL 04/16/2018 17:10 [facility] IG% - [facility] 0.5 0 - 0.9 % 04/16/2018 17:10 [facility] LYMPH # - CV 2.69 0.9 - 2.9 10e3/uL 04/16/2018 17:10 [facility] LYMPH% - [facility] 27 20 - 40 % 04/16/2018 17:10 [facility] MEAN CORPUSCULAR HGB - [facility] 29.6 26 - 34 pg 04/16/2018 17:10 [facility] MEAN CORPUSCULAR HGB CONC - [facility] 32.9 31 - 36 g/dL 04/16/2018 17:10 [facility] MEAN CELL VOLUME - [facility] 89.9 77 - 100 fl 04/16/2018 17:10 [facility] MONO # - [facility] 0.79 0.3 - 0.9 10e3/uL 04/16/2018 17:10 [facility] MONO% - [facility] 8 0 - 12 % 04/16/2018 17:10 [facility] PLATELET COUNT 301 150 - 400 10e3/ul 04/16/2018 17:10 [facility] RED BLOOD COUNT - [facility] 4.26 3.8 - 5.2 10e6/ul 04/16/2018 17:10 [facility] RED CELL DISTRI WIDTH - [facility] 13.3 11.8 - 15.6 % 04/16/2018 17:10 [facility] WHITE BLOOD COUNT - [facility] 10.0 3.5 - 10.5 10e3/ul 04/16/2018 17:10 [facility] 04/16/2018 16:5 8 EDT 04/16/2018 17:05 EDT Narrative [facility] - 04/16/2018 17:10 EDT Does PT Have a Latex Allergy? NO us Jess Bonner MD HEMATOLOGY & PF4 ORDERABLES Fin al Result [facility] * [facility]INE [facility]OC [facility] (04/16/2018 14:42 EDT[facility] - [facility] NEG NEGATIVE 04/16/2018 14:43 EDT [facility] 04/16/2018 14:4 2 EDT 04/16/2018 14:42 EDT us Stacia VIGIL CHEMISTRY & BLOOD GAS ORDERAB LES Final Result Performing Organization Address [facility]/ZIP Co de Phone Number [facility] * (ABNORMAL) POCT URINALYSIS (04/16/2018 13:59 EDT) URINE APPEARANCE - CV Cloudy CLEAR 04/16/2018 13:59 EDT [facility] URINE BILIRUBIN - DIPSTICK - [facility] Negative NEGATIVE 04/16/2018 13:59 EDT [facility] URINE BLOOD - [facility] Negative NEGATIVE 04/16/2018 13:59 EDT [facility] URINE COLOR - [facility] [place] YELLOW 04/16/2018 13:59 EDT [facility] URINE GLUCOSE - DIPSTICK - [facility] Negative NEGATIVE 04/16/2018 13:59 EDT [facility] URINE KETONE - [facility] Trace NEGATIVE 04/16/2018 13:59 EDT [facility] URINE LEUK ESTERASE - [facility] Negative NEGATIVE 04/16/2018 13:59 EDT [facility] URINE NITRITE - DIPST[facility] - [facility] Negative NEGATIVE 04/16/2018 13:59 EDT [facility] URINE PH - [facility] 6.0 () 8 13:59 EDT [facility] URINE PROTEIN - DIPSTICK - CV Trace NEGATIVE 04/16/2018 13:59 EDT [facility] URINE SPECIFIC GRAVITY - [facility] >=1.030(H) () 04/16/2018 13:59 EDT [facility] URINE UROBILINOGEN - DIPSTICK - [facility] 1.0 0.2 - 1.0 EU/DL 04/16/2018 13:59 EDT [facility] 04/16/2018 13:5 9 EDT 04/16/2018 13:59 EDT us Stacia VIGIL POINT OF CARE TEST ORDERABLES Final Result [facility] documented in this encounter Visit Diagnoses Not on filedocumented in this encounter Care Teams Casino Assistant Manager Relationship Specialty Start Date End Date Unknown, Provider, PCP - General 12/15/10 10/16/19 documented as of this encounter
--- OUTSIDE RECORDS SUMMARY | 2024-11-09 15:44 | XMS_ITS | Encounter Summary ---
Author Organization [facility] Address [address] [place] [address] Care Team Providers Care Trolley Operator Name Role Phone Unknown, Provider Primary Care Provider Unava ilable Encounter Details Date Type Department Care Team (Late st Contact Info) Description 02/27/2018 Historical Results Only [facility] - Main [address] [address] Terri Holman, PLEXIGLAS FORMER [address] [place] [phone] Social History Tobacco Use Types [...] Date/Time Associated Diagnosis Comments PHARYNGITIS SCREEN - [facility] Routine 02/27/2018 11:50 EDT GRP A STREP POC - CV Routine 02/27/2018 10:51 EDT documented in this encounter Results * PHARYNGITIS SCREEN - [facility] (02/27/2018 11:50 EDT) PHARYNGITIS SCREEN - [facility] 03/01/2018 12:38 EDT [facility] PHARYNGITIS SCREEN - [facility] NO GROUP A STREP ISOLATED 03/01/2018 12:38 EDT [facility] 02/27/2018 11:5 0 EDT 02/27/2018 18:02 EDT Narrative [facility] - 03/01/2018 12:38 EDT Does PT Have a Latex Allergy? NO us Terri Manda PLEXIGLAS FORMER CHEMISTRY & BLOOD GAS ORDERABLES Final Result [facility] * GRP A STREP POC - [facility] (02/27/2018 10:51 EDT) GRP A STREP POC - [facility] NEGATIVE NEGATIVE 02/27/2018 10:52 EDT [facility] 02/27/2018 10:5 1 EDT 02/27/2018 10:51 EDT us Terri Holman PLEXIGLAS FORMER CHEMISTRY & BLOOD GAS ORDERABLES Final Result [facility] documented in this encounter Visit Diagnoses Not on filedocumented in this encounter Care Teams Trolley Operator Relationship Specialty Start Date End Date Unknown, Provider, PCP - General 12/15/10 10/16/19 documented as of this encounter
--- OUTSIDE RECORDS SUMMARY | 2024-11-09 15:44 | XMS_ITS | Encounter Summary ---
Author Organization [facility] Address [address] [place] [address] Care Team Providers Care Investments Manager Name Role Phone Unknown, Provider Primary Care Provider Unava ilable Encounter Details Date Type Department Care Team (Late st Contact Info) Description 09/20/2018 Historical Results Only [facility] - Main [address] [id number] Terri Holman, LAUNCH OPERATOR [address] [place] [phone] Social History Tobacco Use Types Packs/Day [...] Diagnosis Comments BASIC METABOLIC PANEL POCT - [facility] Routine 09/20/2018 14:14 EST documented in this encounter Results * (ABNORMAL) BASIC METABOLIC PANEL POCT [facility] (09/20/2018 14:14 EST) BUN - [facility] 15 7.00 - 20.00 MG/DL 09/20/2018 14:15 [facility] CALCIUM - [facility] 9.8 8.50 - 10.50 MG/DL 09/20/2018 14:15 [facility] Chloride 102 98.00 - 107.00 MMOL/L 09/20/2018 14:15 [facility] CO2 Total 29 22.00 - 30.00 MMOL/L 09/20/2018 14:15 [facility] CREATININE 0.8 0.70 - 1.50 MG/DL 09/20/2018 14:15 [facility] Anion Gap 9 7 - 17 MMOL/L 09/20/2018 14:15 [facility] GLUCOSE - [facility] 66(L) 70.00 - 100.00 MG/DL 09/20/2018 14:15 [facility] Potassium 4.4 3.50 - 5.10 MMOL/L 09/20/2018 14:15 [facility] Sodium 140 137.00 - 145.00 MMOL/L 09/20/2018 14:15 [facility] 09/20/2018 14:1 4 EST 09/20/2018 14:14 EST us Terri Holman LAUNCH OPERATOR POINT OF CARE TEST ORDERABLES Fi nal Result [facility] documented in this encounter Visit Diagnoses Not on filedocumented in this encounter Care Teams Investments Manager Relationship Specialty Start Date End Date Unknown, Provider, PCP - General 12/15/10 10/16/19 documented as of this encounter
[2024-11-09 15:58] VITALS: BP 110/83; PULSE 68; RESP 18; O2SAT 96
== END 2024-11-09 15:59 | disposition home or self-care (01) ==
PROVIDERS: Emergency Provider Emergency Medicine; PCP Internal Medicine
DX: R30.0 Dysuria (principal); R35.0 Frequency of micturition; N39.0 Urinary tract infection, site not specified; F17.290 Nicotine dependence, other tobacco product, uncomplicated
CPT/HCPCS: 81025; 87077; 99283; 81003; 81015; 87086; 87186

== ENCOUNTER 2024-12-24 21:59 | Emergency (ER) | payer BC, SELFPAY ==
[2024-12-24 22:14] VITALS: BP 137/99; PULSE 76; RESP 16; TEMP 36.7; O2SAT 99
--- NOTE | 2024-12-24 22:23 | ED.GENADUL_ITS ---
Discharge Plan Disposition Patient Disposition: Home Condition: Good Discharge Details Clinical Impression: Acute cystitis Primary Care Provider: Nii Dill ED Provider: Cornelia Cantor Home Meds and New Rx's Prescriptions: New ciprofloxacin HCl 250 mg tablet 250 mg PO BID Qty: 6 0RF Continued valacyclovir [Valtrex] 1 gram Tablet 1,000 mg PO DAILY Discharge Instructions Instructions: Urinary Tract Infection, Adult ED Additional Instructions: Ciprofloxacin twice a day for the next 3 days. Call your primary care doctor in the morning to schedule an appointment to followup on your visit here. Return to the emergency department for new or worsening symptoms including fever, flank pain, if your symptoms are not improving in 24 hours, if your symptoms go away and then return after you finish the antibiotic. Referrals: Nii Dill [Primary Care Provider] - [facility] General Mode of arrival: ambulatory . Date/Time Provider Initiated Documentation: 12/24/24 22:12 . Limitations to Documentation: no limitations . Information obtained by: patient and old records reviewed (Ed visit 11/09/24) . HPI Narrative: 34yo healthy female, hx recurrent UTIs for the past several months, presenting for dysuria. Symptoms for the past 2-3 days, worsening, improved with pyridium at home. Associated urinary frequency. No hematuria. No fever, chills, or flank pain. Otherwise in her usual state of health. Related Data Home Medications ?Medication ?Instructions ?Recorded ?Confirmed valacyclovir 1 gram tablet 1,000 mg PO DAILY 08/25/19 12/24/24 (Valtrex) ciprofloxacin HCl 250 mg tablet 250 mg PO BID #6 tabs 12/24/24 Previous Rx's ?Medication ?Instructions ?Recorded ciprofloxacin HCl 250 mg tablet 250 mg PO BID #6 tabs 12/24/24 Allergies Allergy/AdvReac Type Severity Reaction Status Date / Time nickel Allergy Skin Rash Verified 12/24/24 22:17 General Stated Complaint: Urinary ROXANN: 4 Review of Systems Narrative: see HPI Exam Narrative Exam Narrative: General: Alert, well appearing, well nourished, in no acute distress. Head: Normocephalic, atraumatic Neck: Trachea midline, ?Neck supple. Cardiac: ?Well perfused Resp: No respiratory distress. Speaking in full sentences. Abd: ?Soft, non-distended, nontender : ?No suprapubic tenderness. No CVA tenderness. Extremities: ?No deformities.? Neurologic: GCS 15. ? Moves all extremities freely against gravity Course Vital Signs Vital signs: Vital Signs Temperature 36.7 C 12/24/24 22:14 Pulse 76 12/24/24 22:14 Respiratory Rate 16 12/24/24 22:14 Blood Pressure 137/99 H 12/24/24 22:14 Pulse Oximetry 99 12/24/24 22:14 Temperature 36.7 C 12/24/24 22:14 Temperature Source Oral 12/24/24 22:14 Pulse 76 12/24/24 22:14 Respiratory Rate 16 12/24/24 22:14 Blood Pressure 137/99 H 12/24/24 22:14 Blood Pressure Position Sitting 12/24/24 22:14 Pulse Oximetry 99 12/24/24 22:14 Oxygen Delivery Method Room Air 12/24/24 22:14 Oxygen Flow Rate 0 12/24/24 22:14 Pain Level 6 12/24/24 22:14 Medical Decision Making 34yo healthy female, hx recurrent UTIs for the past several months (most recently 11/09/24), presenting for dysuria. Systemically well. Vital signs reassuring on arrival. No suprapubic or CVA tenderness. History and exam not suggestive of sepsis, nephrolithiais, pyelonephritis; would not get bloodwork or CT imaging. [facility] records reviewed, in Oct of last year and Nov of this year urine grew fluroquinoline senstive e.coli. Urine negative. UA suggestive of UTI. Will prescribe course of ciprofloxacin for acute simple cystitis. Discharged home; discharge instructions and return precautions were reviewed with patient who verbalized understanding. All questions were answered and she is in full agreement with the plan. Medical Records Medical records reviewed: Yes I reviewed the patient's medical records. Lab Data Lab results reviewed: Yes I reviewed the patient's lab results. Labs: 12/24/24 22:06 Urine - Reflex from Ua Urine Culture - Pending Laboratory Tests Range/Units 12/24/24 22:06 Urine Color (Yellow) Yellow Urine Clarity (Clear) Clear Urine pH (5-8) 5.5 Ur Specific [place] (1.005-1.025) >= 1.030 H Urine Protein (Neg-Trace) mg/dL Negative Urine Ketones (Negative) mg/dL 40 H Urine Blood (Negative) Moderate H Urine Nitrite (Negative) Positive H Urine Bilirubin (Negative) Negative Urine Urobilinogen (Up to 0.2) mg/dL 0.2 Ur Leukocyte Esterase (Negative) Small H Urine RBC (0-2) HPF 3-5 H Urine WBC (0-5) HPF 10-20 H Ur Epithelial Cells (Negative) HPF Few Urine Crystals (Negative) HPF Negative Urine Bacteria (Negative) HPF Moderate Urine Casts (Negative) LPF Negative Urine Mucus (Negative) Negative Ur Culture Indicated? Yes Urine Glucose (Negative) mg/dL Negative Quality:SDOH Health Related Social Needs: No Data to Display PFSH All Active Problems (Updated 12/24/24 @ 22:27 by Cornelia Cantor MD) Acute cystitis (Acute) Medical History No significant past medical history Social History Smoking/Tobacco Use Status: Current every day Tobacco Type: e-cigarettes Smoking risk assessment performed?: Yes Alcohol Intake: never Drug use: Never Substance use type: does not use Housing: apartment Do you feel safe at home: Yes Do you feel safe in your relationship?: Yes
[2024-12-24 22:24] LABS: Bilirubin Negative (Negative); Blood Moderate (Negative); Clarity Clear (Clear); Glucose Negative (Negative); Ketones 40 mg/dL (Negative); Leukocyte Esterase Small (Negative); Nitrite Positive (Negative); Specific Gravity >= 1.030 (1.005-1.025); Urobilinogen 0.2 mg/dL (Up to 0.2); pH 5.5 (5-8)
[2024-12-24 22:32] LABS: Bacteria Moderate HPF (Negative); C & S Indicated? Yes; Casts Negative LPF (Negative); Crystals Negative HPF (Negative); Epithelial Cells Few HPF (Negative); Mucus Negative (Negative)
[2024-12-24] MEDS: Ciprofloxacin 500 MG TAB PO (22:55)
== END 2024-12-24 23:00 | disposition home or self-care (01) ==
LOC: ER 22:32
PROVIDERS: Emergency Provider Student in an Organized Health Care Education/Training Program; PCP Internal Medicine
DX: N30.00 Acute cystitis without hematuria (principal); F17.290 Nicotine dependence, other tobacco product, uncomplicated
CPT/HCPCS: 87077; 99283; 81003; 81015; 87086; 87186

== ENCOUNTER 2025-02-14 16:30 | Outpatient (REF) | payer BC, SELFPAY | END 2025-02-14 16:31 | disposition home or self-care (01) | LOC: LBN 16:30 | PROVIDERS: PCP Internal Medicine; Visit Provider Nurse Practitioner Family | DX: N39.0 Urinary tract infection, site not specified (principal); B96.29 Other Escherichia coli [E. coli] as the cause of diseases classified elsewhere | CPT/HCPCS: 87077; 87086; 87186 ==

== ENCOUNTER 2025-06-20 21:26 | Outpatient (REF) | payer BC, SELFPAY ==
[2025-06-20 21:28] LABS: Glucose 100 mg/dL (Negative)
[2025-06-20 21:36] LABS: C & S Indicated? No; WBC 0-2 HPF (0-5)
== END 2025-06-20 21:27 | disposition home or self-care (01) ==
LOC: LBN 21:26
PROVIDERS: PCP Internal Medicine; Visit Provider Nurse Practitioner Family
DX: R30.0 Dysuria (principal)
CPT/HCPCS: 81003; 81015

== ENCOUNTER 2025-10-15 18:51 | Outpatient (REF) | payer BC, SELFPAY ==
[2025-10-15 21:40] LABS: Glucose Negative (Negative)
[2025-10-15 21:54] LABS: C & S Indicated? No; RBC 0-2 HPF (0-2); WBC 0-2 HPF (0-5)
== END 2025-10-15 18:52 | disposition home or self-care (01) ==
LOC: LBN 18:51
PROVIDERS: PCP Internal Medicine; Visit Provider Nurse Practitioner Family
DX: R39.9 Unspecified symptoms and signs involving the genitourinary system (principal)
CPT/HCPCS: 81003; 81015

== ENCOUNTER 2025-10-28 20:40 | Emergency (ER) | payer BC, SELFPAY ==
[2025-10-28 20:45] VITALS: BP 123/94; PULSE 87; RESP 16; TEMP 36.8; O2SAT 99
[2025-10-28 21:09] VITALS: BP 123/94; PULSE 87; RESP 16; TEMP 36.8; O2SAT 99
--- NOTE | 2025-10-28 21:15 | ED.GENADUL_ITS ---
Discharge Plan Disposition Patient Disposition: Home Condition: Stable Discharge Details Clinical Impression: Recurrent urinary tract infection Primary Care Provider: Nii Dill ED Provider: Pricilla Mcneal Home Meds and New Rx's Prescriptions: New cephalexin 500 mg tablet 500 mg PO BID 7 Days Qty: 14 0RF Rx Instructions: Take 1 tablet by mouth twice daily for the next 7 days No Action valacyclovir [Valtrex] 1 gram Tablet 1,000 mg PO DAILY Discharge Instructions Instructions: Urinary Tract Infection, Adult ED Additional Instructions: It does appear that you do again have another urinary tract infection or a continuation of your previous urinary tract infection. I will place you on an additional 7 days of the cephalexin. Please take it twice a day with yogurt or a probiotic. Please wipe front to back after urinating, no baths. Follow up with primary care provider in 3-5 days. Return to ED sooner if any worsening or concerns. Stand Alone Forms: Portal Information Referrals: Nii Dill [Primary Care Provider] - 3 days Discharge Data Discharge Date/Time-TO BE ENTERED AT DEPARTURE: 10/28/25 22:04 HPI General Mode of arrival: ambulatory . Date/Time Provider Initiated Documentation: 10/28/25 20:52 . Limitations to Documentation: no limitations . Information obtained by: patient, RN notes reviewed and old records reviewed . HPI Narrative: 35-year-old female presents to the ER with a chief complaint of urinary frequency and discomfort recently diagnosed with UTI and placed on cephalexin for 7 days just finished it on . Symptoms have now returned. She does have a history of recurrent urinary tract infections. Denies any back pain or vomiting or any other associated symptoms. Related Data Home Medications ?Medication ?Instructions ?Recorded ?Confirmed valacyclovir 1 gram tablet 1,000 mg PO DAILY 08/25/19 10/28/25 (Valtrex) cephalexin 500 mg tablet 500 mg PO BID UTI 7 days #14 tabs 10/28/25 Previous Rx's ?Medication ?Instructions ?Recorded cephalexin 500 mg tablet 500 mg PO BID UTI 7 days #14 tabs 10/28/25 Allergies Allergy/AdvReac Type Severity Reaction Status Date / Time nickel Allergy Skin Rash Verified 10/28/25 21:14 General Stated Complaint: Urinary ROXANN: 4 Review of Systems Constitutional Constitutional: Denies fever(s) Gastrointestinal Gastrointestinal: Denies abdominal pain, Denies nausea and Denies vomiting Genitourinary Genitourinary: Reports as per HPI, Reports dysuria, Reports urinary hesitancy and Reports urinary urgency Exam Narrative Exam Narrative: Constitutional: Alert and oriented x3. Appears stated age. Normal body habitus. Head: Normocephalic, no trauma. Chest: RRR, Normal S1, S2, distal pulses intact. Resp: Lungs clear to auscultation bilaterally, no wheezes, rales, or rhonchi. Abdomen: Soft, non-distended, Normoactive bowel sounds all 4 quads. Musculoskeletal: Normal gait, Moves all 4 extremities without difficulty. Course Vital Signs Vital signs: Vital Signs Temperature 36.8 C 10/28/25 20:45 Pulse 87 10/28/25 20:45 Respiratory Rate 16 10/28/25 20:45 Blood Pressure 123/94 H 10/28/25 20:45 Pulse Oximetry 99 10/28/25 20:45 Temperature 36.8 C 10/28/25 21:09 Temperature Source Oral 10/28/25 21:09 Pulse 87 10/28/25 21:09 Respiratory Rate 16 10/28/25 21:09 Blood Pressure 123/94 H 10/28/25 21:09 Blood Pressure Position Sitting 10/28/25 21:09 Pulse Oximetry 99 10/28/25 21:09 Oxygen Delivery Method Room Air 10/28/25 21:09 Oxygen Flow Rate 0 10/28/25 21:09 Pain Level 0 10/28/25 21:09 Medical Decision Making 35-year-old female presents to the ER with a chief complaint of urinary frequency and discomfort recently diagnosed with UTI and placed on cephalexin for 7 days just finished it on . Symptoms have now returned. She does have a history of recurrent urinary tract infections. Denies any back pain or vomiting or any other associated symptoms. On chart review the last culture was growing E. coli which was sensitive to cephalosporins. Will place patient on another 7 days of cephalexin. This text was generated using [employer] dictation system, please disregard any oddities of phrase or misspellings. Lab Data Lab results reviewed: Yes I reviewed the patient's lab results. Labs: 10/28/25 21:00 Urine - Clean Catch Urine Culture - Pending Laboratory Tests Range/Units 10/28/25 21:00 Urine Color (Yellow) Yellow Urine Clarity (Clear) Clear Urine pH (5-8) 6.0 Ur Specific [place] (1.005-1.025) 1.020 Urine Protein (Neg-Trace) mg/dL Negative Urine Ketones (Negative) mg/dL Trace H Urine Blood (Negative) Trace-intact H Urine Nitrite (Negative) Positive H Urine Bilirubin (Negative) Negative Urine Urobilinogen (Up to 0.2) mg/dL 0.2 Ur Leukocyte Esterase (Negative) Negative Urine RBC (0-2) HPF Negative Urine WBC (0-5) HPF 0-2 Ur Epithelial Cells (Negative) HPF Few Urine Crystals (Negative) HPF Negative Urine Bacteria (Negative) HPF Rare Urine Casts (Negative) LPF Negative Urine Mucus (Negative) Negative Ur Culture Indicated? No/Sq. Contamination Urine Glucose (Negative) mg/dL Negative PFSH All Active Problems (Updated 10/28/25 @ 21:42 by Pricilla Mcneal NP) Recurrent urinary tract infection (Acute) Medical History No significant past medical history Social History Smoking/Tobacco Use Status: Current every day Tobacco Type: e-cigarettes Smoking risk assessment performed?: Yes Alcohol Intake: never Drug use: Never Substance use type: does not use Housing: apartment Do you feel safe at home: Yes Do you feel safe in your relationship?: Yes
[2025-10-28 21:27] LABS: Glucose Negative (Negative)
[2025-10-28 21:32] LABS: RBC Negative HPF (0-2); WBC 0-2 HPF (0-5)
[2025-10-28] MEDS: Cephalexin 500 MG CAP PO (22:02)
[2025-10-28] MEDS: Cephalexin 500 MG CAP, 2 CAPS/BTL PO (22:02)
== END 2025-10-28 22:04 | disposition home or self-care (01) ==
PROVIDERS: Emergency Provider Registered Nurse Emergency; PCP Internal Medicine
DX: N39.0 Urinary tract infection, site not specified (principal)
CPT/HCPCS: 99283 ×2; 81025; 81003; 81015; 87086